=== PATIENT | female | born 1950 | race Caucasian/White ===

== ENCOUNTER 2019-07-17 06:00 | Outpatient (RCR) | payer OTHER, SELFPAY | END 2019-08-16 00:01 | LOC: AST 06:00 | PROVIDERS: Family Provider Family Medicine; Visit Provider Nurse Practitioner | DX: I69.328 Other speech and language deficits following cerebral infarction (principal) | CPT/HCPCS: 92507 ==

== ENCOUNTER 2019-08-17 06:00 | Outpatient (RCR) | payer MEDICARE, OTHER, SELFPAY | END 2019-09-16 23:59 | disposition home or self-care (01) | LOC: AST 06:00 | PROVIDERS: Family Provider Family Medicine; PCP Family Medicine; Visit Provider Nurse Practitioner | DX: R47.1 Dysarthria and anarthria (principal) ==

== ENCOUNTER → 2019-08-22 08:17 | Outpatient (BNVA) | payer MEDICARE, OTHER, SELFPAY | PROVIDERS: Family Provider Family Medicine; PCP Family Medicine; Visit Provider Specialist | DX: I99.8 Other disorder of circulatory system (principal); E11.9 Type 2 diabetes mellitus without complications; I10 Essential (primary) hypertension; E66.01 Morbid (severe) obesity due to excess calories; I48.20 Chronic atrial fibrillation, unspecified; Z68.41 Body mass index [BMI] 40.0-44.9, adult; Z79.01 Long term (current) use of anticoagulants; Z86.73 Personal history of transient ischemic attack (TIA), and cerebral infarction without residual deficits | CPT/HCPCS: 99214 ==

== ENCOUNTER 2019-08-23 16:05 | Emergency (ER) | payer MEDICARE, OTHER, SELFPAY ==
[2019-08-23 16:29] VITALS: BP 176/116; PULSE 88; RESP 16; TEMP 36.6; O2SAT 94; BMI 41.8
[2019-08-23 17:20] LABS: Hematocrit 54.4 % (37.0-47.0); Mean Corpuscular HGB Conc 31.3 g/dL (30.0-36.0); Mean Corpuscular Hemoglobin 28.2 pg (28.0-34.0); Mean Corpuscular Volume 90.4 fL (81-99); Mean Platelet Volume 11.2 fL (7.4-10.4); Platelet Count 165 10^3/cmm (130-400); Red Blood Count 6.02 10^6/uL (4.1-5.3); Red Cell Distribution Width 14.9 % (12.1-15.1); White Blood Count 6.8 10^3/uL (4.0-10.0)
[2019-08-23 17:33] LABS: Alanine Aminotransferase 25 U/L (0-33); Albumin Level 4.2 g/dL (3.5-5.2); Alkaline Phosphatase 62 IU/L (35-105); Anion Gap 16.4 (5-19); Aspartate Amino Transferase 23 U/L (0-32); Blood Urea Nitrogen 24 mg/dL (8-23); Calcium 9.6 mg/Dl (8.8-10.2); Carbon Dioxide 23 mmol/L (22-29); Chloride 106 mmol/L (98-107); Globulin 3.2 g/dL (1.3-4.6); Glomerular Filtration Rate 55.3 mL/min (90-130); Glucose 114 mg/dL (74-106); Potassium 4.4 mmol/L (3.5-5.1); Sodium 141 mmol/L (136-145); Total Bilirubin 0.5 mg/dL (0.15-1.2); Total Protein 7.4 g/dL (6.6-8.7)
[2019-08-23 18:46] LABS: Absolute Eosinophils 0.2 10^3/cmm (0.0-0.7); Absolute Segmented Neutrophil 4.6 10/cmm (1.6-7.1); Eosinophils 3 %; Lymphocytes 23 %; Lymphocytes Absolute 1.7 10^3/cmm (1.2-3.4); Monocytes Absolute 0.3 10^3/cmm (0.1-0.6); Segmented Neutrophils 68 %; Total Cells Counted 100 (0-100)
[2019-08-23 18:47] LABS: Platelet Estimate Normal (Normal)
[2019-08-23] MEDS: metoprolol tartrate 25 mg Tablet 12.5 MG PO (19:32)
[2019-08-23] MEDS: lisinopril 20 mg Tablet 40 MG PO (19:32)
[2019-08-23] MEDS: apixaban 5 mg Tablet PO (19:33)
--- NOTE | 2019-08-23 20:21 | ED_ITS ---
HPI - Recheck/Abnormal Lab/Rx General: Chief Complaint: Recheck/Abnormal Lab/Rx Stated Complaint: high bp Time Seen by Provider: 08/23/19 20:10 History of Present Illness: HPI narrative: BP has been high since stopping the Diltiazem 240 ER has been diltiazem 120 ER complaint: other (HTN) Symptoms since prior visit: no new symptoms Review of Systems General: Reports: 10 or more systems reviewed and unremarkable except in HPI and below (B/p has been up, reading documented, higher since off diltiazem) Const: Denies: fever, chills or body aches Eyes: Denies: change in vision or blurry vision ENMT: Denies: throat pain or nasal congestion Card: Denies: chest pain, shortness of breath on exertion or shortness of breath when lying down Resp: Denies: shortness of breath, productive cough or non-productive cough GI: Denies: abdominal pain, nausea or vomiting Musc: Denies: extremity pain Skin/Breast: Denies: rash Neuro: Denies: headache Psych: Denies: anxiety or depression Blake/Lymph: Denies: easy bruising PFSH ED PFSH: Statuses (acute, chronic, etc) shown below reflect problem list status as previously entered and may not be historically accurate Medical History (Updated 08/23/19 @ 20:24 by RINA Mcneal) Chronic ischemia posterior cerebral artery stroke (Acute) This patient has a 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 She has chronic atrial fibrillation, morbid obesity, poorly controlled diabetes with poor compliance on diet, hypertension that is under poor control and recurrent episodes that have brought her to the emergency department with transient neurologic symptoms and no residual. She has chronic findings of right homonymous hemianopsia from her previous left posterior cerebral artery stroke. Her is heavily invested in her care and motivated to help her with compliance on diet and exercise. She was recently started on Zetia. Her blood pressure and lipids will be managed by Dr. Wilson. I have nothing further to add. Her is very concerned that she is not keeping up with her fluids and I advise she should drink water at an appropriate amount. Getting her off of hydrochlorothiazide will probably help. I have nothing further to add. Social History (Updated 08/22/19 @ 08:40 by Afshan Mendez LPN) Smoking and tobacco status: never smoked Physical Exam Const: COMMON NORMALS: no apparent distress, average body habitus and oriented x3 HENMT: COMMON NORMALS: normocephalic HEAD & SCALP: normal to inspection and normocephalic FACE & SINUS: normal facial exam Eye: COMMON NORMALS: conjunctivae normal GENERAL EYE: normal appearance of both eyes CONJUNCTIVA: Yes conjunctivae normal Neck/C-Spine: COMMON NORMALS: no JVD Chest: COMMONS NORMALS: inspection of chest normal Resp: COMMON NORMALS: normal respiratory effort and clear to auscultation bilaterally AUSCULTATION: clear to auscultation bilaterally Cardio: COMMON NORMALS: no JVD, regular rate and regular rhythm RATE: regular rate RHYTHM: regular rhythm GI: COMMON NORMALS: normal to inspection, nondistended, normoactive bowel sounds Extremity: COMMON NORMALS: normal to inspection and full ROM Neuro: COMMON NORMALS: oriented x3 Course Vital Signs: Vital signs: Vital Signs Temperature 98 F 08/23/19 16:29 Pulse Rate 82 08/23/19 20:23 Respiratory Rate 16 08/23/19 20:23 Blood Pressure 189/116 08/23/19 21:25 Pulse Oximetry 94 08/23/19 20:23 MDM - Recheck/Abnormal Lab/Rx Lab Data: Labs: Lab Results 08/23/19 08/23/19 Range/Units 17:05 17:05 WBC 6.8 (4.0-10.0) 10^3/ uL RBC 6.02 H (4.1-5.3) 10^6/u L Hgb 17.0 H (11.5-15.3) g/dL Hct 54.4 H (37.0-47.0) % MCV 90.4 (81-99) fL MCH 28.2 (28.0-34.0) pg MCHC 31.3 (30.0-36.0) g/dL RDW 14.9 (12.1-15.1) % Plt Count 165 (130-400) 10^3/c mm MPV 11.2 H (7.4-10.4) fL Total Counted 100 (0-100) Atypical Lymphs % 2.0 (0-5) % Segmented Neutroph ils 68 % Absolute Lymphocyt es 1.7 (1.2-3.4) 10^3/c mm Lymphocytes (Manua l) 23 % Monocytes (Manual) 4.0 % Absolute Monocytes 0.3 (0.1-0.6) 10^3/c mm Eosinophils (Manua l) 3 % Absolute Eosinophi ls 0.2 (0.0-0.7) 10^3/c mm Platelet Estimate Normal (Normal) Sodium 141 (136-145) mmol/L Potassium 4.4 (3.5-5.1) mmol/L Chloride 106 (98-107) mmol/L Carbon Dioxide 23 (22-29) mmol/L Anion Gap 16.4 (5-19) BUN 24 H (8-23) mg/dL Creatinine 1.0 H (0.5-0.9) mg/dL GFR Calculation 55.3 L (90-130) mL/min Glucose 114 H (74-106) mg/dL Calcium 9.6 (8.8-10.2) mg/Dl Total Bilirubin 0.5 (0.15-1.2) mg/dL AST 23 (0-32) U/L ALT 25 (0-33) U/L Alkaline Phosphata se 62 (35-105) IU/L Total Protein 7.4 (6.6-8.7) g/dL Albumin 4.2 (3.5-5.2) g/dL Globulin 3.2 (1.3-4.6) g/dL Discharge Plan Discharge Patient Disposition: Home, Self-Care Clinical Impression: Chronic hypertension Condition: Stable Prescriptions: New clonidine HCl 0.1 mg tablet 0.1 mg PO Q6H 2 Days Qty: 20 RF: 0 No Action lisinopril 10 mg tablet 10 mg PO BID RF: 0 Eliquis 5 mg tablet 5 mg PO BID RF: 0 aspirin [Aspir-81] 81 mg tablet,delayed release (DR/EC) 81 mg PO ONCE RF: 0 Jardiance 25 mg tablet 12.5 mg PO QAM RF: 0 ezetimibe [Zetia] 10 mg tablet 10 mg PO ONCE RF: 0 fluticasone propionate 50 mcg/actuation spray,suspension 1 spray INTRANASAL Q12H RF: 0 Novolin N NPH U-100 Insulin 100 unit/mL suspension 38 unit SUBCUT BID PRNRF: 0 Lantus Solostar U-100 Insulin 100 unit/mL (3 mL) insulin pen 37 unit SUBCUT .bedtime RF: 0 loratadine [Claritin] 10 mg tablet 10 mg PO ONCE RF: 0 oxybutynin chloride 15 mg tablet extended release 24hr 15 mg PO ONCE RF: 0 tramadol 50 mg tablet 50 mg PO Q4H PRNRF: 0 diltiazem HCl 120 mg capsule,extended release 12 hr 120 mg PO ONCE RF: 0 metoprolol tartrate 25 mg tablet 12.5 mg PO BID RF: 0 sulfamethoxazole-trimethoprim [Bactrim DS] 800-160 mg tablet 1 tab PO .COMPLEX RF: 0 Discharge Orders: Discharge Order (Routine); Ordered 08/23/19 Ordered By: Keshawn Dixon Referrals: Ajay Robertson, [Primary Care Provider] - Discharge Diet: Usual diet Discharge Activity: Resume usual activity Patient Instructions: Chronic Hypertension (ED) Activity Restrictions/Additional Instructions: Increase diltiazem back to 250 mg ER twice a day. Can take 0.1 mg clonidine every 6 hours as needed for blood pressure of systolic greater than 150 or diastolic greater than 100. Continue document blood pressures. Follow-up Dr. Jensen within the next week. Can return here if symptoms are worsening. Coding Level of Care Code ED Ceramic Worker for Tulio Fwstoney Exam Problem Focused
[2019-08-23 20:23] VITALS: BP 181/129; PULSE 82; RESP 16; O2SAT 94
[2019-08-23] MEDS: sodium chloride 0.9% 1,000 ML 999 ML IV (21:24)
[2019-08-23 21:25] VITALS: BP 189/116
[2019-08-23] MEDS: cloNIDine 0.1 mg Tablet 0.3 MG PO (21:25)
[2019-08-23 23:23] VITALS: BP 124/85; PULSE 74; RESP 16; TEMP 36.5; O2SAT 95
== END 2019-08-23 23:24 | disposition home or self-care (01) ==
PROVIDERS: Family Medicine; Emergency Provider Nurse Practitioner Family; Family Provider Family Medicine; PCP Family Medicine
DX: I10 Essential (primary) hypertension (principal); Z79.01 Long term (current) use of anticoagulants; Z79.82 Long term (current) use of aspirin; Z79.4 Long term (current) use of insulin; Z86.73 Personal history of transient ischemic attack (TIA), and cerebral infarction without residual deficits
CPT/HCPCS: 36415; 80053; 85007; 85027; 96360; 99281; J7030

== ENCOUNTER 2019-09-27 14:43 | Outpatient (CLI) | payer OTHER, MEDICARE, SELFPAY ==
--- NOTE | 2019-09-27 14:54 | MR_ITS ---
WS: [id number] MRI LEFT SHOULDER NONCONTRAST TECHNIQUE: Sagittal T2, coronal T1, T2 and proton density imaging. Axial gradient PDE imaging. CLINICAL INFORMATION: LEFT SHOULDER PAIN COMPARISON: None. FINDINGS: Moderate degenerative arthritis at the AC joint. Mild downsloping of the acromion. Trace subacromial fluid. Tendinopathy in the distal supraspinatus. Tiny undersurface insertional tear distal supraspina tus. Normal infraspinatus. Normal teres minor. Normal subscapularis tendon distally. Normal biceps te ndon in the bicipital groove. Chronic appearing atrophy of the biceps tendon. Tendinopathy involving the intra-articular portion of the biceps tendon with a small amount of T2 signal abnormality. Edema along the rotator interval. Ma rked irregularity of the glenoid labrum with chronic appearing labral tear. Chronic appearing anterio r superior labral tear likely involves the biceps labral anchor. SLAP tear with anterior and posterio r extension. Susceptibility artifact involving the labrum may be due to mineralization. Posterior lab rum is better preserved. Subchondral cystic change involving the glenoid. MR/MR shoulder LT wo con* [id number] IMPRESSION: 1. Moderate degenerative arthritis at the AC joint with mild downsloping of th e acromion.. Moderate edema at the AC joint. 2. Tendinopathy involving the supraspinatus with a small undersurface insertio nal tear. 3. Rotator cuff is otherwise intact. 4. Marked degenerative fraying involving the glenoid labrum with chronic appea ring labral tearing. Chronic appearing SLAP tear with anterior and posterior ex tension. This likely involves the biceps labral anchor. Posterior labrum appear s better preserved. 5. Subchondral cystic change involving the glenoid. 6. Atrophic biceps tendon is normally located in the bicipital groove. Tendino costa involving the intra-articular biceps tendon with T2 signal abnormality.
== END 2019-09-27 14:44 | disposition home or self-care (01) ==
LOC: RADSHAW 14:52
PROVIDERS: Family Provider Family Medicine; PCP Family Medicine; Visit Provider Family Medicine
DX: M19.012 Primary osteoarthritis, left shoulder (principal); S43.432A Superior glenoid labrum lesion of left shoulder, initial encounter; X58.XXXA Exposure to other specified factors, initial encounter
CPT/HCPCS: 73221

== ENCOUNTER 2019-10-12 06:00 | Outpatient (RCR) | payer OTHER, SELFPAY | END 2019-10-15 23:59 | disposition home or self-care (01) | LOC: AST 06:00 | PROVIDERS: Family Provider Family Medicine; PCP Family Medicine; Referring Provider Family Medicine; Visit Provider Family Medicine | DX: I63.9 Cerebral infarction, unspecified (principal); R13.0 Aphagia | CPT/HCPCS: 92523 ==

== ENCOUNTER 2019-10-16 06:00 | Outpatient (RCR) | payer OTHER, SELFPAY | END 2019-11-15 23:59 | disposition home or self-care (01) | LOC: AST 06:00 | PROVIDERS: Family Provider Family Medicine; PCP Family Medicine; Referring Provider Family Medicine; Visit Provider Family Medicine | DX: I69.322 Dysarthria following cerebral infarction (principal) | CPT/HCPCS: 92507 ==

== ENCOUNTER 2019-11-16 06:00 | Outpatient (RCR) | payer OTHER, SELFPAY | END 2019-12-15 23:59 | disposition home or self-care (01) | LOC: AST 06:00 | PROVIDERS: Family Provider Family Medicine; PCP Family Medicine; Referring Provider Family Medicine; Visit Provider Family Medicine | DX: I63.9 Cerebral infarction, unspecified (principal); R13.0 Aphagia | CPT/HCPCS: 92507 ==

== ENCOUNTER 2019-11-29 06:00 | Outpatient (RCR) | payer OTHER, SELFPAY | END 2019-12-15 23:59 | disposition home or self-care (01) | LOC: APT 06:00 | PROVIDERS: Family Provider Family Medicine; PCP Family Medicine; Referring Provider Orthopaedic Surgery; Visit Provider Orthopaedic Surgery | DX: I69.920 Aphasia following unspecified cerebrovascular disease (principal) | CPT/HCPCS: 97110; 97112; 97161 ==

== ENCOUNTER 2019-12-16 06:00 | Outpatient (RCR) | payer OTHER, SELFPAY | END 2020-01-15 23:59 | disposition home or self-care (01) | LOC: AST 06:00 | PROVIDERS: PCP Family Medicine; Referring Provider Family Medicine; Visit Provider Family Medicine | DX: R47.01 Aphasia (principal) | CPT/HCPCS: 92507 ==

== ENCOUNTER 2019-12-16 06:00 | Outpatient (RCR) | payer OTHER, SELFPAY | END 2020-01-15 23:59 | disposition home or self-care (01) | LOC: APT 06:00 | PROVIDERS: PCP Family Medicine; Referring Provider Orthopaedic Surgery; Visit Provider Orthopaedic Surgery | DX: S46.912D Strain of unspecified muscle, fascia and tendon at shoulder and upper arm level, left arm, subsequent encounter (principal); X58.XXXD Exposure to other specified factors, subsequent encounter; M19.012 Primary osteoarthritis, left shoulder | CPT/HCPCS: 97110; 97140; 97164 ==

== ENCOUNTER 2020-01-16 06:00 | Outpatient (RCR) | payer MEDICARE, OTHER, SELFPAY | END 2020-02-14 23:59 | disposition home or self-care (01) | LOC: APT 06:00 | PROVIDERS: PCP Family Medicine; Visit Provider Orthopaedic Surgery | DX: S46.912D Strain of unspecified muscle, fascia and tendon at shoulder and upper arm level, left arm, subsequent encounter (principal); X58.XXXD Exposure to other specified factors, subsequent encounter | CPT/HCPCS: 92507; 97110; 97140 ==

== ENCOUNTER 2020-04-17 06:00 | Outpatient (RCR) | payer MEDICARE, SELFPAY | END 2020-05-16 23:59 | disposition home or self-care (01) | LOC: AST 06:00 | PROVIDERS: PCP Family Medicine; Referring Provider Orthopaedic Surgery; Visit Provider Orthopaedic Surgery | DX: I69.320 Aphasia following cerebral infarction (principal) | CPT/HCPCS: 96105 ==

== ENCOUNTER 2020-05-03 11:58 | Outpatient (CLI) | payer OTHER, MEDICARE, SELFPAY ==
--- NOTE | 2020-05-03 12:10 | MM_ITS ---
WS: [id number] BILATERAL SCREENING DIGITAL MAMMOGRAM WITH CAD HISTORY: SCREENING COMPARISON: 04/04/2019 and 11/09/2017 Bilateral CC and MLO views submitted. Computer aided detection analyzed. Breast composition: There are scattered areas of fibroglandular density. No suspicious masses, microc alcifications or architectural distortion. Stable bilobed mass measuring 2.0 cm transversely in the c entral LEFT breast at 3:00. There are additional associated calcifications. No increase in size. Ther e are additional smaller bilateral breast nodules which are stable. No increasing size of any mass. B enign calcifications. MM/[place] [id number] IMPRESSION: BI-RADS: 2-Benign FOLLOW UP: 1 Year Follow-up
== END 2020-05-03 11:59 | disposition home or self-care (01) ==
LOC: RADSHAW 12:05
PROVIDERS: PCP Family Medicine; Visit Provider Nurse Practitioner
DX: Z12.31 Encounter for screening mammogram for malignant neoplasm of breast (principal)
CPT/HCPCS: 77067

== ENCOUNTER 2021-06-26 13:16 | Outpatient (CLI) | payer OTHER, SELFPAY ==
--- NOTE | 2021-06-26 13:20 | MM_ITS ---
WS: [id number] BILATERAL SCREENING DIGITAL MAMMOGRAM WITH CAD HISTORY: SCREENING COMPARISON: 05/03/2020, 04/04/2019 Bilateral CC and MLO views submitted. Computer aided detection analyzed. Breast composition: There are scattered areas of fibroglandular density. No suspicious masses, microc alcifications or architectural distortion. Lobulated 7 mm nodule in the anterior RIGHT breast. May be superimposed fibroglandular densities but needs to be further evaluated. There are additional nodules which are stable. MM/[place] [id number] IMPRESSION: BI-RADS: 0-Incomplete: Need additional imaging evaluation FOLLOW UP: Need Additional Imaging RIGHT breast: Spot compression views (CC and MLO). True ML. Ultrasound to follo w if abnormality persists.
== END 2021-06-26 13:17 | disposition home or self-care (01) ==
PROVIDERS: PCP Family Medicine; Visit Provider Nurse Practitioner
DX: Z12.31 Encounter for screening mammogram for malignant neoplasm of breast (principal)
CPT/HCPCS: 77067

== ENCOUNTER 2021-07-26 13:04 | Outpatient (CLI) | payer OTHER, SELFPAY ==
--- NOTE | 2021-07-26 13:13 | US_ITS ---
WS: [id number] ADDITIONAL VIEWS RIGHT BREAST RIGHT breast ultrasound, limited HISTORY: RT BREAST NODULE COMPARISON: 06/26/2021 and 05/03/2020 Compression views right CC and MLO projection. True ML also submitted. There is a partially obscured nodule measuring 6 mm just posterior to the nipple. This is best seen o n the CC projection. This may be a prominent duct. Ultrasound to follow. RIGHT breast ultrasound, limited. Well-circumscribed hypoechoic nodule at 6:00, 1 cm from the nipple. This does correspond to the mammo graphic abnormality. Hypoechoic nodule measures 6 x 5 x 5 mm. US/US breast RT limited* [id number] IMPRESSION: BI-RADS: 4-Suspicious Finding-Biopsy Should Be Considered FOLLOW-UP: Biopsy Recommended Ultrasound-guided biopsy recommended of the hypoechoic nodule RIGHT breast.
== END 2021-07-26 13:05 | disposition home or self-care (01) ==
LOC: RADSHAW 13:09
PROVIDERS: PCP Family Medicine; Visit Provider Nurse Practitioner
DX: N63.15 Unspecified lump in the right breast, overlapping quadrants (principal)
CPT/HCPCS: 76642; 77065

== ENCOUNTER 2021-09-04 12:23 | Outpatient (CLI) | payer OTHER, SELFPAY ==
--- NOTE | 2021-09-04 | US_ITS ---
WS: [id number] ULTRASOUND-GUIDED RIGHT BREAST BIOPSY HISTORY: RT BREAST NODULE COMPARISON: 07/26/2021, 06/26/2021 Procedure, risks and complications are explained to the patient. Medications are reviewed. Consent is obtained. The mass in the RIGHT breast is localized with ultrasound. Mass localizes to 6:00, 1 cm from the nipp le. Skin is cleansed with ChloraPrep and anesthetized with 1% buffered lidocaine. Small dermatome is made. Under sterile conditions mass is biopsied with a 14-gauge Achieve needle. Multiple core biopsie s are performed. Material placed in formalin and sent to pathology for review. No complications encou ntered. Breast tissue marker (Bard ultrasound enhanced ribbon): Single. Patient left the radiology suite with no complications. Patient is instructed to return to [facility] with any concerns. US/[place] [id number] IMPRESSION: 1. Uncomplicated core needle biopsy circumscribed mass RIGHT breast at 6:00, 1 cm from the nipple. PATHOLOGY: Benign breast tissue with coagulated blood and fibrotic changes. No malignancy. RECOMMENDATION: Diagnostic mammogram RIGHT breast 6 months and possible ultraso und.
== END 2021-09-04 12:24 | disposition home or self-care (01) ==
LOC: RAD 12:27
PROVIDERS: PCP Family Medicine; Visit Provider Nurse Practitioner
DX: N63.15 Unspecified lump in the right breast, overlapping quadrants (principal)
CPT/HCPCS: 19083; 88305

== ENCOUNTER → 2021-10-16 16:10 | Outpatient (BNVA) | payer OTHER, SELFPAY | PROVIDERS: PCP Family Medicine; Visit Provider Nurse Practitioner Family | DX: N39.0 Urinary tract infection, site not specified (principal) | CPT/HCPCS: 81003; 87086 ==

== ENCOUNTER → 2021-12-24 11:06 | Outpatient (BNVA) | payer OTHER, SELFPAY | PROVIDERS: PCP Family Medicine; Visit Provider Urology | DX: N39.41 Urge incontinence (principal); N39.0 Urinary tract infection, site not specified; L29.3 Anogenital pruritus, unspecified | CPT/HCPCS: 51798; 81003; 87086; 87106; 99213 ==

== ENCOUNTER 2022-01-09 14:05 | Outpatient (CLI) | payer OTHER, SELFPAY ==
--- NOTE | 2022-01-09 14:15 | US_ITS ---
WS: [id number] RENAL ULTRASOUND HISTORY: Urgency Incontinence COMPARISON: None available. TECHNIQUE: 2-D and color Doppler imaging of the kidney submitted. Right kidney: 10.3 cm x 5.3 cm x 5.6 cm. Normal echogenicity with no hydronephrosis or mass. Left kidney: 11.9 cm x 5.7 cm x 3.7 cm. Normal echogenicity with no hydronephrosis or mass. Aorta: Normal. Urinary Bladder: Normal distention. US/US renal BI* [id number] IMPRESSION: Normal renal ultrasound.
== END 2022-01-09 14:06 | disposition home or self-care (01) ==
PROVIDERS: PCP Family Medicine; Visit Provider Urology
DX: N39.41 Urge incontinence (principal)
CPT/HCPCS: 76770

== ENCOUNTER → 2022-01-22 15:57 | Outpatient (BNVA) | payer MEDICARE, OTHER, SELFPAY | PROVIDERS: PCP Family Medicine; Visit Provider Family Medicine | DX: N39.0 Urinary tract infection, site not specified (principal); R30.0 Dysuria; E11.9 Type 2 diabetes mellitus without complications; R19.4 Change in bowel habit | CPT/HCPCS: 81000; 87086; 87106 ==

== ENCOUNTER → 2022-01-23 11:26 | Outpatient (BNVA) | payer MEDICARE, OTHER, SELFPAY | PROVIDERS: PCP Family Medicine; Visit Provider Family Medicine | DX: E11.9 Type 2 diabetes mellitus without complications (principal); N39.0 Urinary tract infection, site not specified; R19.4 Change in bowel habit; R30.0 Dysuria | CPT/HCPCS: 83630; 87177; 87209; 87338; 87506 ==

== ENCOUNTER 2022-01-27 14:15 | Outpatient (CLI) | payer OTHER, SELFPAY ==
--- NOTE | 2022-01-27 14:00 | XR_ITS ---
WS: [id number] KUB, AP view, 01/27/2022. Clinical Data: Urgency Incontinence Comparison: None. Findings: No abnormal intraabdominal masses or calcifications are seen. There is no dilatated small bowel or ev idence of obstruction. There is fecal material throughout the colon. XR/XR KUB [id number] Impression: Negative KUB.
== END 2022-01-27 14:16 | disposition home or self-care (01) ==
LOC: RAD 14:18
PROVIDERS: PCP Family Medicine; Visit Provider Urology
DX: N39.41 Urge incontinence (principal); N39.0 Urinary tract infection, site not specified
CPT/HCPCS: 74018; 81003; 99213

== ENCOUNTER → 2022-02-10 11:35 | Outpatient (BNVA) | payer MEDICARE, SELFPAY | PROVIDERS: PCP Family Medicine; Visit Provider Family Medicine | DX: B37.49 Other urogenital candidiasis (principal) | CPT/HCPCS: 81000; 87086; 87106 ==

== ENCOUNTER → 2022-02-13 15:35 | Outpatient (BNVA) | payer OTHER, SELFPAY | PROVIDERS: PCP Family Medicine; Visit Provider Internal Medicine | DX: I25.10 Atherosclerotic heart disease of native coronary artery without angina pectoris (principal); I48.91 Unspecified atrial fibrillation; E11.9 Type 2 diabetes mellitus without complications; E66.9 Obesity, unspecified; Z68.42 Body mass index [BMI] 45.0-49.9, adult; G47.33 Obstructive sleep apnea (adult) (pediatric); Z79.01 Long term (current) use of anticoagulants; Z79.4 Long term (current) use of insulin | CPT/HCPCS: 99213 ==

== ENCOUNTER → 2022-03-11 11:16 | Outpatient (BNVA) | payer OTHER, SELFPAY | PROVIDERS: PCP Family Medicine; Visit Provider Podiatrist Foot & Ankle Surgery | DX: I73.9 Peripheral vascular disease, unspecified (principal); L60.3 Nail dystrophy; E11.42 Type 2 diabetes mellitus with diabetic polyneuropathy | CPT/HCPCS: 11056; 11721 ==

== ENCOUNTER → 2022-04-29 13:02 | Outpatient (BNVA) | payer OTHER, SELFPAY | PROVIDERS: PCP Family Medicine; Visit Provider Urology | DX: N39.0 Urinary tract infection, site not specified (principal); B37.49 Other urogenital candidiasis | CPT/HCPCS: 87086; 99213 ==

== ENCOUNTER → 2022-05-12 10:52 | Outpatient (BNVA) | payer OTHER, SELFPAY | PROVIDERS: PCP Family Medicine; Visit Provider Urology | DX: N39.0 Urinary tract infection, site not specified (principal); B37.49 Other urogenital candidiasis | CPT/HCPCS: 81003 ==

== ENCOUNTER → 2022-07-25 10:25 | Outpatient (BNVA) | payer MEDICARE, SELFPAY | PROVIDERS: PCP Family Medicine; Visit Provider Family Medicine | DX: R31.9 Hematuria, unspecified (principal); E11.9 Type 2 diabetes mellitus without complications; G47.33 Obstructive sleep apnea (adult) (pediatric); I48.91 Unspecified atrial fibrillation; I69.30 Unspecified sequelae of cerebral infarction; I73.9 Peripheral vascular disease, unspecified; N39.0 Urinary tract infection, site not specified; E55.9 Vitamin D deficiency, unspecified | CPT/HCPCS: 80053; 80061; 81003; 82306; 82607; 83036; 83721; 85025; 87086 ==

== ENCOUNTER → 2022-08-05 10:39 | Outpatient (BNVA) | payer MEDICARE, SELFPAY | PROVIDERS: PCP Family Medicine; Visit Provider Podiatrist Foot & Ankle Surgery | DX: I73.9 Peripheral vascular disease, unspecified (principal); E11.8 Type 2 diabetes mellitus with unspecified complications; L60.3 Nail dystrophy; E11.42 Type 2 diabetes mellitus with diabetic polyneuropathy; Z79.84 Long term (current) use of oral hypoglycemic drugs | CPT/HCPCS: 11056; 11721 ==

== ENCOUNTER → 2022-10-28 15:00 | Outpatient (BNVA) | payer MEDICARE, SELFPAY | PROVIDERS: PCP Family Medicine; Referring Provider Family Medicine; Visit Provider Obstetrics & Gynecology | DX: Z01.419 Encounter for gynecological examination (general) (routine) without abnormal findings (principal); N95.0 Postmenopausal bleeding; N93.9 Abnormal uterine and vaginal bleeding, unspecified; I69.30 Unspecified sequelae of cerebral infarction; I48.91 Unspecified atrial fibrillation; E66.9 Obesity, unspecified; G47.33 Obstructive sleep apnea (adult) (pediatric); E11.9 Type 2 diabetes mellitus without complications; I73.9 Peripheral vascular disease, unspecified; N39.41 Urge incontinence; Z79.01 Long term (current) use of anticoagulants | CPT/HCPCS: 87624 ==

== ENCOUNTER 2022-11-11 12:04 | Outpatient (CLI) | payer MEDICARE, SELFPAY ==
--- NOTE | 2022-11-11 12:15 | US_ITS ---
WS: [id number] TRANSABDOMINAL PELVIC AND TRANSVAGINAL PELVIC ULTRASOUND HISTORY: vaginal bleeding COMPARISON: None available. Quality of this examination is suboptimal secondary to pain during the examination and body habitus. Uterus: 7.7 cm x 3.8 cm x 3.1 cm. Normal size anteverted uterus. No fibroid or mass identified but ve ry limited visualization of the entire uterus. Endometrium: 0.4 cm. Poorly visualized. Neither ovary is identified. No adnexal mass. Free fluid: No free fluid. US/US pelv w/transvag [id number] IMPRESSION: 1. Suboptimal evaluation of the uterus and adnexa due to body habitus and pain during the examination. 2. Poorly visualized endometrium. This study is not adequate to exclude endome trial neoplasm or abnormality.
== END 2022-11-11 12:05 | disposition home or self-care (01) ==
PROVIDERS: PCP Family Medicine; Visit Provider Family Medicine
DX: N93.9 Abnormal uterine and vaginal bleeding, unspecified (principal)
CPT/HCPCS: 76830; 76856

== ENCOUNTER → 2022-11-21 10:44 | Outpatient (BNVA) | payer MEDICARE, OTHER, SELFPAY | PROVIDERS: PCP Family Medicine; Visit Provider Family Medicine | DX: E11.9 Type 2 diabetes mellitus without complications (principal); I48.91 Unspecified atrial fibrillation; I73.9 Peripheral vascular disease, unspecified; N95.0 Postmenopausal bleeding; I69.30 Unspecified sequelae of cerebral infarction; Z01.818 Encounter for other preprocedural examination | CPT/HCPCS: 80053; 80061; 82607; 83036; 83721; 85025 ==

== ENCOUNTER → 2022-11-25 10:39 | Outpatient (BNVA) | payer MEDICARE, SELFPAY | PROVIDERS: PCP Family Medicine; Visit Provider Podiatrist Foot & Ankle Surgery | DX: I73.9 Peripheral vascular disease, unspecified (principal); E11.8 Type 2 diabetes mellitus with unspecified complications; L60.3 Nail dystrophy; E11.42 Type 2 diabetes mellitus with diabetic polyneuropathy; Z79.4 Long term (current) use of insulin | CPT/HCPCS: 11056; 11721 ==

== ENCOUNTER 2022-12-04 12:24 | Day surgery (SDC) | payer MEDICARE, SELFPAY ==
[2022-12-03 12:14] VITALS: BMI 47.0
[2022-12-04] VITALS (11 sets, daily range): BP systolic 129–162; BP diastolic 64–88; PULSE 70–87; RESP 13–20; TEMP 36.1–36.6; O2SAT 91–98
--- NOTE | 2022-12-04 08:23 | PM.HP ---
Providers/Chief Complaint Admitting Physician: Vadim Liz M.D. Primary Care Provider: Ajay Robertson DO Chief Complaint: abnormal uterine bleeding History of Present Illness Kay Munroe is a 72 year old female with three-month history of heavy postmenopausal bleeding Medications/Allergies Home Medications Medication Instructions Recorded Confirmed Last Taken Type apixaban 5 mg tablet (Eliquis) 5 mg PO BID 08/22/19 12/03/22 11/29/22 History aspirin 81 mg tablet,delayed 81 mg PO ONCE 08/22/19 12/03/22 11/29/22 History release (Aspir-) ezetimibe 10 mg tablet (Zetia) 10 mg PO ONCE 08/22/19 12/03/22 12/03/22 History fluticasone propionate 50 1 spray intranasal Q12H 08/22/19 12/03/22 12/03/22 History mcg/actuation nasal spray,suspension insulin NPH isoph U-100 human 100 38 unit SUBCUT BID PRN 08/22/19 12/03/22 12/03/22 History unit/mL subcutaneous suspension Hyperglycemia (Novolin N NPH U-100 Insulin isophane) loratadine 10 mg tablet (Claritin) 10 mg PO ONCE 08/22/19 12/03/22 12/03/22 History metoprolol tartrate 25 mg tablet 12.5 mg PO BID 08/22/19 12/03/22 12/03/22 History oxybutynin chloride 15 mg 15 mg PO ONCE 08/22/19 12/03/22 12/03/22 History tablet,extended release 24 hr tramadol 50 mg tablet 50 mg PO Q4H PRN Pain 08/22/19 12/03/22 Unknown History cyclobenzaprine 5 mg tablet 5 mg PO BID 03/01/20 12/03/22 12/03/22 History diltiazem HCl 120 mg 240 mg PO BID 03/01/20 12/03/22 12/03/22 History capsule,extended release 12 hr empagliflozin 25 mg tablet 25 mg PO QAM 03/01/20 12/03/22 12/03/22 History (Jardiance) lisinopril 10 mg tablet 40 mg PO DAILY 01/22/21 12/03/22 12/03/22 History ketoconazole 2 % shampoo 1 applic topical .2 x weekly #120 08/19/21 12/03/22 12/03/22 Rx mL ketoconazole 2 % topical cream 1 applic topical BID #30 grams 08/19/21 12/03/22 12/03/22 Rx cholecalciferol (vitamin D3) 125 125 mcg PO DAILY 10/16/21 12/03/22 12/03/22 History mcg (5,000 unit) capsule cdrejtox-jhuydrj-gcre-lutein tablet 1 tab PO DAILY 10/16/21 12/03/22 12/03/22 History insulin glargine 100 unit/mL (3 72 unit SUBCUT DAILY 12/24/21 12/03/22 12/03/22 History mL) subcutaneous pen (Lantus Solostar U-100 Insulin) cpap #1 ea 03/20/22 11/25/22 Unknown Rx fluconazole 100 mg tablet 100 mg PO DAILY #7 tabs 04/22/22 12/03/22 12/03/22 Rx methenamine hippurate 1 gram tablet 1 g PO BID #60 tabs 05/19/22 12/03/22 12/03/22 Rx bupropion HCl 75 mg tablet 75 mg PO BID #60 tabs 07/18/22 12/03/22 12/03/22 Rx triamcinolone acetonide 0.1 % 1 applic topical BID #453.6 grams 09/03/22 12/03/22 12/03/22 Rx topical ointment metoclopramide HCl 5 mg tablet See Rx Instructions .Route 10/06/22 12/03/22 12/03/22 Rx .COMPLEX #90 tabs Allergies Allergy/AdvReac Type Severity Reaction Status Date / Time Penicillins AdvReac nausea/vomi Verified 12/03/22 12:00 ting Vextmmc-VLD-LnR Reductase AdvReac muscle pain Verified 12/03/22 12:00 Inhibitor [Pvoxmaa-Ezk-Eez Reductase Inhibitor] PFSH Acute PFSH: Medical History Anticoagulation adequate with anticoagulant therapy Atrial fibrillation Chronic ischemia posterior cerebral artery stroke This patient has a 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 She has chronic atrial fibrillation, morbid obesity, poorly controlled diabetes with poor compliance on diet, hypertension that is under poor control and recurrent episodes that have brought her to the emergency department with transient neurologic symptoms and no residual. She has chronic findings of right homonymous hemianopsia from her previous left posterior cerebral artery stroke. Her is heavily invested in her care and motivated to help her with compliance on diet and exercise. She was recently started on Zetia. Her blood pressure and lipids will be managed by Dr. Wilson. I have nothing further to add. Her is very concerned that she is not keeping up with her fluids and I advise she should drink water at an appropriate amount. Getting her off of hydrochlorothiazide will probably help. I have nothing further to add. CVA (cerebral vascular accident) Diabetes Hematuria Obesity Obstructive sleep apnea Recurrent UTI Urgency incontinence Urinary tract infection Surgical History Hx of appendectomy Hx of tonsillectomy Family History Father , IN HIS LATE 50'S No problems noted. Mother , AT AGE 65 Hypertension Grandmother Breast cancer maternal Sister Diabetes Hypertension Denies family history of Colon cancer Ovarian cancer Heart disease Hypercholesteremia Uterine cancer Thyroid disease Stroke Vitals/I&O/Wt Weight last 48 hrs Weight 300 lb Physical Exam Narrative: HEENT: normal Lungs: clear Cor: RRR Abd: soft, nontender A&P Assessment and plan (1) Postmenopausal bleeding: plan hysteroscopy, endometrial sampling, possible endometrial polypectomy Attestations Medical Necessity Statement*: patient with postmenopausal bleeding now for hysteroscopy, endometrial sampling Coding Level of Care Code Acute Code for Chg Fwd Diagnoses Postmenopausal bleeding N95.0 Time Spent (min) 45
--- NOTE | 2022-12-04 08:26 | P.HPUD_ITS ---
Surgery/Procedure H&P Update DATE OF PROCEDURE: December 04, 2022 DATE H&P PERFORMED: 12/04/22 CHANGES TO PREVIOUS DOCUMENTATION: none PRIMARY INDICATION FOR PROCEDURE: postmenopausal bleeding PLANNED PROCEDURE: Operation Date: 12/04/22 14:00 Proposed Procedures p Hysteroscopy w/Myosure, endometrial sampling 05339, Endometrial polypectomy 21120,N93.9(Not Applicable) - Vadim Liz MD s Endometrial polypectomy 15194(Not Applicable) - Vadim Liz MD
--- NOTE | 2022-12-04 08:26 | W.PM.OPSUD ---
Surgery/Procedure H&P Update DATE OF PROCEDURE: December 04, 2022 DATE H&P PERFORMED: 12/04/22 CHANGES TO PREVIOUS DOCUMENTATION: none PRIMARY INDICATION FOR PROCEDURE: postmenopausal bleeding PLANNED PROCEDURE: Operation Date: 12/04/22 14:00 Proposed Procedures p Hysteroscopy w/Myosure, endometrial sampling 63594, Endometrial polypectomy 42721,N93.9(Not Applicable) - Vadim Liz MD s Endometrial polypectomy 34285(Not Applicable) - Vadim Liz MD
[2022-12-04] MEDS: sodium chloride 0.9% 1,000 ML 30 ML IV (13:03)
--- NOTE | 2022-12-04 13:18 | ECG_ITS ---
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 Measurements Intervals [place] Rate: 82 P: 0 PA: 0 QRS: 35 QRSD: 105 T: 71 QT: 409 QTc: 480 Interpretive Statements ATRIAL FIBRILLATION LOW QRS VOLTAGE IN PRECORDIAL LEADS [QRS DEFLECTION < 1.0 mV IN CHEST LEADS] ANTEROSEPTAL MYOCARDIAL INFARCTION [40+ ms Q WAVE IN V1-V4], PROBABLY OLD Compared to ECG 08/01/2019 22:20:19 Low QRS voltage now present Myocardial infarct finding still present Electronically Signed On 12-05-2022 22:17:44 CDT by Jose Sierra M.D. [email or web address] [email or web address] memorial [id number]
--- NOTE | 2022-12-04 13:23 | ANES.PREANE2 ---
Pre-Anesthetic Assessment Height/Weight: Height 1.7 m Weight 136.078 kg Temp Pulse Resp BP Pulse Ox O2 Del Method 97.2 F L 76 18 153/87 92 Room Air 12/04/22 12:49 12/04/22 12:49 12/04/22 12:49 12/04/22 12:49 12/04/22 12:49 12/04/22 12:50 Preop Diagnosis: abnormal uterine bleeding Operation Date: 12/04/22 14:00 Proposed Procedures p Hysteroscopy w/Myosure, endometrial sampling 76600, Endometrial polypectomy 98028,N93.9(Not Applicable) - Vadim Liz MD s Endometrial polypectomy 98684(Not Applicable) - Vadim Liz MD Familial anesthetic complications: none Was Beta Geronimo taken within 24 hours: Yes Was Clonidine taken within 24 hours: N/A Last intake: Intake Last Liquid Date 12/03/22 Last Liquid Time 20:00 Last Solid Date 12/03/22 Last Solid Time 20:00 Social No alcohol and No tobacco Exam alert, oriented x 3 and clear to auscultation bilaterally Airway Submandibular: within normal limits Cervical ROM: within normal limits Mallampati: Class II Dentition: full Pulmonary Sleep Apnea CV/HEM Atrial Fibrillation, Hypertension and Peripheral Vascular Disease Chronic Renal Insufficiency Metabolic Diabetes Mellitus, Hyperlipidemia and Morbid Obesity Neuropsych Cerebrovascular Accident Anesthetic Plan ASA status: 3 Anesthesia: General Medications/Allergies Home Medications Medication Instructions Recorded Confirmed Last Taken Type apixaban 5 mg tablet (Eliquis) 5 mg PO BID 08/22/19 12/03/22 11/29/22 History aspirin 81 mg tablet,delayed 81 mg PO ONCE 08/22/19 12/03/22 11/29/22 History release (Aspir-) ezetimibe 10 mg tablet (Zetia) 10 mg PO ONCE 08/22/19 12/03/22 12/03/22 History fluticasone propionate 50 1 spray intranasal Q12H 08/22/19 12/03/22 12/03/22 History mcg/actuation nasal spray,suspension insulin NPH isoph U-100 human 100 38 unit SUBCUT BID PRN 08/22/19 12/03/22 12/03/22 History unit/mL subcutaneous suspension Hyperglycemia (Novolin N NPH U-100 Insulin isophane) loratadine 10 mg tablet (Claritin) 10 mg PO ONCE 08/22/19 12/03/22 12/03/22 History metoprolol tartrate 25 mg tablet 12.5 mg PO BID 08/22/19 12/03/22 12/04/22 History oxybutynin chloride 15 mg 15 mg PO ONCE 08/22/19 12/03/22 12/03/22 History tablet,extended release 24 hr tramadol 50 mg tablet 50 mg PO Q4H PRN Pain 08/22/19 12/03/22 Unknown History cyclobenzaprine 5 mg tablet 5 mg PO BID 03/01/20 12/03/22 12/03/22 History diltiazem HCl 120 mg 240 mg PO BID 03/01/20 12/03/22 12/03/22 History capsule,extended release 12 hr empagliflozin 25 mg tablet 25 mg PO QAM 03/01/20 12/03/22 12/03/22 History (Jardiance) lisinopril 10 mg tablet 40 mg PO DAILY 01/22/21 12/03/22 12/03/22 History ketoconazole 2 % shampoo 1 applic topical .2 x weekly #120 08/19/21 12/03/22 12/03/22 Rx mL ketoconazole 2 % topical cream 1 applic topical BID #30 grams 08/19/21 12/03/22 12/03/22 Rx cholecalciferol (vitamin D3) 125 125 mcg PO DAILY 10/16/21 12/03/22 12/03/22 History mcg (5,000 unit) capsule bepehkez-tywkmhc-iqeq-lutein tablet 1 tab PO DAILY 10/16/21 12/03/22 12/03/22 History insulin glargine 100 unit/mL (3 72 unit SUBCUT DAILY 12/24/21 12/03/22 12/03/22 History mL) subcutaneous pen (Lantus Solostar U-100 Insulin) cpap #1 ea 03/20/22 11/25/22 Unknown Rx fluconazole 100 mg tablet 100 mg PO DAILY #7 tabs 04/22/22 12/03/22 12/03/22 Rx methenamine hippurate 1 gram tablet 1 g PO BID #60 tabs 05/19/22 12/03/22 12/03/22 Rx bupropion HCl 75 mg tablet 75 mg PO BID #60 tabs 07/18/22 12/03/22 12/03/22 Rx triamcinolone acetonide 0.1 % 1 applic topical BID #453.6 grams 09/03/22 12/03/22 12/03/22 Rx topical ointment metoclopramide HCl 5 mg tablet See Rx Instructions .Route 10/06/22 12/03/22 12/03/22 Rx .COMPLEX #90 tabs Allergies Allergy/AdvReac Type Severity Reaction Status Date / Time Penicillins AdvReac nausea/vomi Verified 12/03/22 12:00 ting Hebyprc-XLZ-JhX Reductase AdvReac muscle pain Verified 12/03/22 12:00 Inhibitor [Iaucvru-Ypm-See Reductase Inhibitor] Current Medications Generic Name Dose Route Start Last Admin Trade Name Freq PRN Reason Stop Dose Admin Sodium Chloride 1,000 mls @ 30 mls/hr 12/04/22 12:45 12/04/22 13:03 Sodium Chloride 0.9% IV 12/05/22 12:44 30 mls/hr .Q24H JULITA Administration PFSH Anesthesia Medical History Anticoagulation adequate with anticoagulant therapy Atrial fibrillation Chronic ischemia posterior cerebral artery stroke This patient has a 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 She has chronic atrial fibrillation, morbid obesity, poorly controlled diabetes with poor compliance on diet, hypertension that is under poor control and recurrent episodes that have brought her to the emergency department with transient neurologic symptoms and no residual. She has chronic findings of right homonymous hemianopsia from her previous left posterior cerebral artery stroke. Her is heavily invested in her care and motivated to help her with compliance on diet and exercise. She was recently started on Zetia. Her blood pressure and lipids will be managed by Dr. Wilson. I have nothing further to add. Her is very concerned that she is not keeping up with her fluids and I advise she should drink water at an appropriate amount. Getting her off of hydrochlorothiazide will probably help. I have nothing further to add. CVA (cerebral vascular accident) Diabetes Hematuria Obesity Obstructive sleep apnea Recurrent UTI Urgency incontinence Urinary tract infection Surgical History Hx of appendectomy Hx of tonsillectomy Family History Father , IN HIS LATE 50'S No problems noted. Mother , AT AGE 65 Hypertension Grandmother Breast cancer maternal Sister Diabetes Hypertension Denies family history of Colon cancer Ovarian cancer Heart disease Hypercholesteremia Uterine cancer Thyroid disease Stroke Social History Substance/Drug Use: unknown Data Anesthesia Cardiac Studies: No Data to Display
--- NOTE | 2022-12-04 13:30 | W.PM.OPSUD ---
Surgery/Procedure H&P Update DATE OF PROCEDURE: December 04, 2022 DATE H&P PERFORMED: 11/18/22 CHANGES TO PREVIOUS DOCUMENTATION: none PREOP DIAGNOSIS: abnormal uterine bleeding PRIMARY INDICATION FOR PROCEDURE: postmenopausal bleeding PLANNED PROCEDURE: Operation Date: 12/04/22 14:00 Proposed Procedures p Hysteroscopy w/Myosure, endometrial sampling 80006, Endometrial polypectomy 18694,N93.9(Not Applicable) - Vadim Liz MD s Endometrial polypectomy 27799(Not Applicable) - Vadim Liz MD
--- NOTE | 2022-12-04 15:11 | ANE.PACU2 ---
Inpatient post-anesthesia follow up: Airway intact: Yes Vital signs: Temperature 97.4 F Pulse Rate 73 Respiratory Rate 18 Blood Pressure 140/84 Pulse Oximetry 92 Oxygen Delivery Me thod Room Air Oxygen Flow Rate 2 Fraction of Inspir ed Oxygen Hydration adequate: Yes Nausea and vomiting: No Pain level: 2 Mental status: Baseline
[2022-12-08 05:16] LABS: Glucose Point of Care 154 mg/dL (70-110)
--- NOTE | 2022-12-09 00:04 | PM.OP ---
Operative Report Date of procedure: December 04, 2022 Pre-op diagnosis: Preop Diagnosis abnormal uterine bleeding Post-op diagnosis: abnormal uterine bleeding Post-op findings: uterus sounded to 8 cm normal endometrial cavity no polyps / fibroids minimal endometrial tissue Procedure done: hysteroscopy curettage of uterus Specimens removed/disposition: endometrial curettings Surgeon: Vadim Liz M.D. Estimated blood loss: 5 cc Complications: none Condition: stable Disposition: PACU Brief History: 72 y.o. with abnormal uterine bleeding Procedure: Informed consent obtained. Patient was taken to the OR and placed supine on the table. General anesthesia was induced. Patient was placed in dorsolithotomy position. The perineum was prepped and draped in the usual fashion. A speculum was placed in the vagina. The anterior lip of the cervix was grasped with a sharp-toothed tenaculum. The cervix was serially dilated with Hegar dilators. A hysteroscope was inserted into the endometrial cavity. The endometrial cavity was seen to be normal. There was minimal endometrial tissue. No polyps or fibroids were seen. The hysteroscope was withdrawn. A sharp curette was then used to obtain endometrial curettings, which were sent to pathology. No bleeding was seen. All instruments were then removed from the uterus, cervix and vagina. The patient was then placed supine, awakened, and taken to the recovery room.
== END 2022-12-04 15:45 | disposition home or self-care (01) ==
PROVIDERS: PCP Family Medicine; Visit Provider Obstetrics & Gynecology
PROC: (CPT 58120; principal; 2022-12-04 13:50)
DX: N95.0 Postmenopausal bleeding (principal); Z79.82 Long term (current) use of aspirin; Z79.4 Long term (current) use of insulin; Z79.891 Long term (current) use of opiate analgesic; I48.20 Chronic atrial fibrillation, unspecified; E66.01 Morbid (severe) obesity due to excess calories; Z68.42 Body mass index [BMI] 45.0-49.9, adult; Z79.01 Long term (current) use of anticoagulants; G47.33 Obstructive sleep apnea (adult) (pediatric); I73.9 Peripheral vascular disease, unspecified; I12.9 Hypertensive chronic kidney disease with stage 1 through stage 4 chronic kidney disease, or unspecified chronic kidney disease; E11.22 Type 2 diabetes mellitus with diabetic chronic kidney disease; E11.65 Type 2 diabetes mellitus with hyperglycemia; N18.9 Chronic kidney disease, unspecified; E78.5 Hyperlipidemia, unspecified; Z86.73 Personal history of transient ischemic attack (TIA), and cerebral infarction without residual deficits
CPT/HCPCS: 58558; 36416; 82962; 88305; 93005; J1100; J2250; J2405; J2704; J3010; J7030

== ENCOUNTER → 2023-02-12 13:41 | Outpatient (BNVA) | payer MEDICARE, SELFPAY | PROVIDERS: PCP Family Medicine; Visit Provider Internal Medicine | DX: I25.10 Atherosclerotic heart disease of native coronary artery without angina pectoris (principal); Z79.01 Long term (current) use of anticoagulants; I48.91 Unspecified atrial fibrillation; E11.9 Type 2 diabetes mellitus without complications; E66.9 Obesity, unspecified; Z68.42 Body mass index [BMI] 45.0-49.9, adult; G47.33 Obstructive sleep apnea (adult) (pediatric); Z79.4 Long term (current) use of insulin | CPT/HCPCS: 99214 ==

== ENCOUNTER → 2023-03-03 10:19 | Outpatient (BNVA) | payer MEDICARE, SELFPAY | PROVIDERS: PCP Family Medicine; Visit Provider Podiatrist Foot & Ankle Surgery | DX: I73.9 Peripheral vascular disease, unspecified (principal); L60.3 Nail dystrophy; L84 Corns and callosities; E11.42 Type 2 diabetes mellitus with diabetic polyneuropathy; Z79.4 Long term (current) use of insulin | CPT/HCPCS: 11056; 11721 ==

== ENCOUNTER → 2023-06-09 10:28 | Outpatient (BNVA) | payer MEDICARE, SELFPAY | PROVIDERS: PCP Family Medicine; Visit Provider Podiatrist Foot & Ankle Surgery | DX: I73.9 Peripheral vascular disease, unspecified (principal); L60.3 Nail dystrophy; L84 Corns and callosities; E11.42 Type 2 diabetes mellitus with diabetic polyneuropathy; Z79.4 Long term (current) use of insulin | CPT/HCPCS: 11055; 11721 ==

== ENCOUNTER → 2023-06-11 10:31 | Outpatient (BNVA) | payer MEDICARE, SELFPAY | PROVIDERS: PCP Family Medicine; Visit Provider Family Medicine | DX: B37.49 Other urogenital candidiasis (principal); N39.0 Urinary tract infection, site not specified | CPT/HCPCS: 81000; 87086; 87106 ==

== ENCOUNTER → 2023-10-13 13:11 | Outpatient (BNVA) | payer MEDICARE, SELFPAY | PROVIDERS: PCP Family Medicine; Visit Provider Podiatrist Foot & Ankle Surgery | DX: I73.9 Peripheral vascular disease, unspecified (principal); L60.3 Nail dystrophy; L84 Corns and callosities; E11.42 Type 2 diabetes mellitus with diabetic polyneuropathy; Z79.4 Long term (current) use of insulin | CPT/HCPCS: 11056; 11721 ==

== ENCOUNTER → 2024-01-14 09:48 | Outpatient (BNVA) | payer MEDICARE, SELFPAY | PROVIDERS: PCP Family Medicine; Visit Provider Family Medicine | DX: E11.9 Type 2 diabetes mellitus without complications (principal); E66.9 Obesity, unspecified; I73.9 Peripheral vascular disease, unspecified; I48.91 Unspecified atrial fibrillation; G47.33 Obstructive sleep apnea (adult) (pediatric); Z13.6 Encounter for screening for cardiovascular disorders; Z79.01 Long term (current) use of anticoagulants; Z79.899 Other long term (current) drug therapy | CPT/HCPCS: 80053; 80061; 83036; 85025 ==

== ENCOUNTER → 2024-01-26 15:03 | Outpatient (BNVA) | payer MEDICARE, SELFPAY | PROVIDERS: PCP Family Medicine; Visit Provider Podiatrist Foot & Ankle Surgery | DX: I73.9 Peripheral vascular disease, unspecified (principal); L60.3 Nail dystrophy; L84 Corns and callosities; E11.42 Type 2 diabetes mellitus with diabetic polyneuropathy; Z79.4 Long term (current) use of insulin | CPT/HCPCS: 11055; 11721 ==

== ENCOUNTER → 2024-02-16 13:43 | Outpatient (BNVA) | payer MEDICARE, SELFPAY | PROVIDERS: PCP Family Medicine; Visit Provider Family Medicine | DX: N39.0 Urinary tract infection, site not specified (principal) | CPT/HCPCS: 81000; 87086 ==

== ENCOUNTER 2024-03-09 16:12 | Inpatient (IN) | payer MEDICARE, SELFPAY ==
[2024-03-09] VITALS (9 sets, daily range): BP systolic 146–180; BP diastolic 84–148; PULSE 103–139; RESP 12–18; TEMP 37.1–37.2; O2SAT 91–97; BMI 43.8; BMI 47.9
--- NOTE | 2024-03-09 16:17 | XRR_ITS ---
PROCEDURE INFORMATION: Exam: XR Chest Exam date and time: 03/09/2024 4:29 PM Age: 74 years old Clinical indication: Other: Weakness TECHNIQUE: Imaging protocol: Radiologic exam of the chest. Views: 1 view. COMPARISON: CR XR chest 1V [id number] 08/02/2019 1:06 AM FINDINGS: Lungs: Central vascular prominence without pulmonary edema. Minimal bibasilar atelectasis. Pleural spaces: Unremarkable. No pleural effusion. No pneumothorax. Heart/Mediastinum: Mild cardiomegaly. Bones/joints: Unremarkable. XR/XR chest 1V portable [id number] IMPRESSION: Central vascular prominence without pulmonary edema. Minimal bibasilar atelectasis.
--- NOTE | 2024-03-09 16:52 | ED_ITS ---
HPI - Extremity Problem 2 General: Chief complaint: Extremity Problem,Nontraumatic Stated complaint: generalized edema Time Seen by Provider: 03/09/24 16:14 History of Present Illness: 74-year-old female with a history of atr ial fibrillation on Eliquis, history of a CVA, chronic anticoagulation, diabetes, obesity, and venous stasis who presents to the emergency room today with fever, mild confusion, worsening pain redness and swelling in her right leg with weeping. She said this been going on for couple of days now. She has no focal motor deficits. No nausea or vomiting. She is normotensive on presentation with a mild tachycardia. Review of Systems 2 Narrative: Constitutional symptoms: Negative except as documented in HPI. Skin symptoms: Negative except as documented in HPI. Eye symptoms: Negative except as documented in HPI. ENMT symptoms: Negative except as documented in HPI. Respiratory symptoms: Negative except as documented in HPI. Cardiovascular symptoms: Negative except as documented in HPI. Gastrointestinal symptoms: Negative except as documented in HPI. Genitourinary symptoms: Negative except as documented in HPI. Musculoskeletal symptoms: Negative except as documented in HPI. Neurologic symptoms: Negative except as documented in HPI. Psychiatric symptoms: Negative except as documented in HPI. Endocrine symptoms: Negative except as documented in HPI. 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 She has chronic atrial fibrillation, morbid obesity, poorly controlled diabetes with poor compliance on diet, hypertension that is under poor control and recurrent episodes that have brought her to the emergency department with transient neurologic symptoms and no residual. She has chronic findings of right homonymous hemianopsia from her previous left posterior cerebral artery stroke. Her is heavily invested in her care and motivated to help her with compliance on diet and exercise. She was recently started on Zetia. Her blood pressure and lipids will be managed by Dr. Wilson. I have nothing further to add. Her is very concerned that she is not keeping up with her fluids and I advise she should drink water at an appropriate amount. Getting her off of hydrochlorothiazide will probably help. I have nothing further to add. Surgical History Hx of tonsillectomy Hx of appendectomy Family History Father , IN HIS LATE 50'S No problems noted. Mother , AT AGE 65 Hypertension Grandmother Breast cancer maternal Sister Diabetes Hypertension Denies family history of Colon cancer Ovarian cancer Heart disease Hypercholesteremia Uterine cancer Thyroid disease Stroke Social History Substance/Drug Use: unknown Physical Exam 2 Narrative: EXAM NARRATIVE: General: Alert, no acute distress. Skin: Warm, dry. Patient has swelling of her bilateral lower extremities. She has extensive old venous stasis dermatitis changes. She has new right leg redness worsening swelling and weeping. Head: Normocephalic, atraumatic. Neck: Supple, trachea midline. Eye: Extraocular movements are intact. Ears, nose, mouth and throat: mucosa moist. Cardiovascular: Regular, Normal peripheral perfusion. Respiratory: Lungs are clear to auscultation, respirations are non-labored, breath sounds are equal, Symmetrical chest wall expansion. Gastrointestinal: Soft, Nontender, Non distended Musculoskeletal: Normal ROM, no deformity. Neurological: Alert and oriented, No focal neurological deficit observed. Psychiatric: Cooperative, appropriate mood & affect. Course 2 Vital Signs: Vital signs: Vital Signs Temperature 99.0 F 03/09/24 16:34 Pulse Rate 103 H 03/09/24 16:34 Respiratory Rate 18 03/09/24 16:34 Blood Pressure 146/108 03/09/24 16:34 Pulse Oximetry 96 03/09/24 16:34 Oxygen Delivery Me thod Nasal Cannula 03/09/24 16:34 Oxygen Flow Rate 4 03/09/24 16:34 MDM - Extremity (Nontraumatic) Medical Decision Making Medical decision making: Differential diagnosis including but not limited to and based on the above HPI, review of systems and physical exam: Patient has an obvious cellulitis. Concern for sepsis so a CBC, blood cultures, lactate, BMP were ordered. Orders placed to evaluate differential diagnosis based on the above differential, HPI and physical exam Lab Review: Laboratory results were reviewed and interpreted by myself the emergency room physician. CBC shows a white count of 22,000. She is febrile and mildly tachycardic so being treated as septic. Lactate and blood cultures were ordered. However holding on any fluids that she has issues with fluid retention in this part of the issue with her legs and her blood pressure is normotensive. No acute renal failure. Consultation: I spoke with Dr. Stephen who accepts the patient for admission to the hospital. Assessment and plan: Lower extremity cellulitis Possible sepsis Venous stasis dermatitis Venous stasis History of DVT Fever ?IV meropenem and Zyvox were given. Holding on any fluids given her swelling. Low threshold if her vital signs do not remained stable. -I discussed the patient with the hospitalist on-call who is admitting the patient. - Discussed findings and plan with patient. Answered any questions. - All laboratory values were reviewed and interpreted personally by myself, the ER physician - All imaging was reviewed and interpreted personally by myself, the ER physician. - Evaluation and treatment of this problem were appropriate in the emergency setting Lab Data 03/09/24 17:08 03/09/24 17:08 Laboratory Results WBC 22.67 10^3/uL (3.29-11.43) H 03/09/24 17:08 RBC 5.84 10^6/uL (3.85-5.65) H 03/09/24 17:08 Hgb 17.10 g/dL (11.27-16.99) H 03/09/24 17:08 Hct 53.3 % (36-47) H 03/09/24 17:08 MCV 91.3 fl (85-98) 03/09/24 17:08 MCH 29.3 pg (27-33) 03/09/24 17:08 MCHC 32.1 g/dL (30-55) 03/09/24 17:08 RDW 14.9 % (12.1-15.1) 03/09/24 17:08 Plt Count 172 10^3/cmm (157-399) 03/09/24 17:08 MPV 11.5 fL (7.4-10.4) H 03/09/24 17:08 Neut % (Auto) 92.1 % 03/09/24 17:08 Lymph % (Auto) 3.5 % 03/09/24 17:08 Morrill % (Auto) 3.5 % 03/09/24 17:08 Eos % (Auto) 0.0 % 03/09/24 17:08 Baso % (Auto) 0.3 % 03/09/24 17:08 Neut # (Auto) 20.88 10^3/uL (1.8-7.7) H 03/09/24 17:08 Lymph # (Auto) 0.8 10^3/uL (0.8-4.8) 03/09/24 17:08 Morrill # (Auto) 0.8 10^3/uL (0.2-0.9) 03/09/24 17:08 Eos # (Auto) 0.0 10^3/uL (0.0-0.8) 03/09/24 17:08 Baso # (Auto) 0.1 10^3/uL (0.0-0.1) 03/09/24 17:08 Nucleated RBC % (auto) 0 % 03/09/24 17:08 Nucleated RBCs # 0.0 /100WBC 03/09/24 17:08 ESR 11 mm/hr (0-15) 03/09/24 17:08 Sodium 138 mmol/L (136-145) 03/09/24 17:08 Potassium 5.0 mmol/L (3.5-5.1) 03/09/24 17:08 Chloride 101 mmol/L (98-107) 03/09/24 17:08 Carbon Dioxide 23 mmol/L (22-29) 03/09/24 17:08 Anion Gap 19.0 (5-19) 03/09/24 17:08 BUN 21 mg/dL (8-23) 03/09/24 17:08 Creatinine 1.1 mg/dL (0.5-0.9) H 03/09/24 17:08 GFR Calculation Not Reportable 03/09/24 17:08 Glucose 173 mg/dL (65-115) H 03/09/24 17:08 Calculated Osmolality 293 mOsm/kg (285-295) 03/09/24 17:08 Calcium 8.7 mg/dL (8.5-10.5) 03/09/24 17:08 Total Bilirubin 1.3 mg/dL (0.15-1.2) H 03/09/24 17:08 AST 16 U/L (0-32) 03/09/24 17:08 ALT 23 U/L (0-33) 03/09/24 17:08 Alkaline Phosphatase 65 U/L (35-105) 03/09/24 17:08 C-Reactive Protein 97.3 mg/L (0.0-4.9) H 03/09/24 17:08 Total Protein 7.2 g/dL (6.6-8.7) 03/09/24 17:08 Albumin 3.9 g/dL (3.5-5.2) 03/09/24 17:08 Globulin 3.3 g/dL (1.3-4.6) 03/09/24 17:08 No radiology studies performed this visit Discharge Plan Discharge Patient Disposition: Admitted As Inpatient Clinical Impression: Lower extremity cellulitis, Venous stasis, Sepsis Condition: Stable Coding Level of Care Code ED Urology Physician for Tulio Ashford
[2024-03-09] MEDS: cefepime 2,000 MG in sodium chloride 0.9% (plus) 50 ML 100 MG IV (16:57)
[2024-03-09 17:24] LABS: Basophils # 0.1 10^3/uL (0.0-0.1); Basophils % 0.3 %; Hematocrit 53.3 % (36-47); Lymphocytes # 0.8 10^3/uL (0.8-4.8); Lymphocytes % 3.5 %; Mean Corpuscular HGB Conc 32.1 g/dL (30-55); Mean Corpuscular Hemoglobin 29.3 pg (27-33); Mean Corpuscular Volume 91.3 fl (85-98); Mean Platelet Volume 11.5 fL (7.4-10.4); Monocytes # 0.8 10^3/uL (0.2-0.9); Monocytes % 3.5 %; Neutrophils # 20.88 10^3/uL (1.8-7.7); Neutrophils % 92.1 %; Nucleated Red Blood Cells % 0 %; Platelet Count 172 10^3/cmm (157-399); Red Blood Count 5.84 10^6/uL (3.85-5.65); Red Cell Distribution Width 14.9 % (12.1-15.1); White Blood Count 22.67 10^3/uL (3.29-11.43)
[2024-03-09 17:27] LABS: Erythrocyte Sedimentation Rate 11 mm/hr (0-15)
[2024-03-09 17:50] LABS: Alanine Aminotransferase 23 U/L (0-33); Albumin Level 3.9 g/dL (3.5-5.2); Alkaline Phosphatase 65 U/L (35-105); Aspartate Amino Transferase 16 U/L (0-32); Blood Urea Nitrogen 21 mg/dL (8-23); C Reactive Protein 97.3 mg/L (0.0-4.9); Calcium 8.7 mg/dL (8.5-10.5); Carbon Dioxide 23 mmol/L (22-29); Chloride 101 mmol/L (98-107); Globulin 3.3 g/dL (1.3-4.6); Glucose 173 mg/dL (65-115); Osmolality Calculated 293 mOsm/kg (285-295); Sodium 138 mmol/L (136-145); Total Bilirubin 1.3 mg/dL (0.15-1.2); Total Protein 7.2 g/dL (6.6-8.7)
[2024-03-09 17:52] LABS: Creatinine Clr Calc Pharmacy 64.0488
[2024-03-09 17:57] LABS: Procalcitonin 1.18 ng/mL (0-0.5)
[2024-03-09] MEDS: linezolid premix 600 MG/300 ML PREMIX 300 MG IV (18:00)
--- NOTE | 2024-03-09 18:05 | ECG_ITS ---
[facility] Test Date: 2024-03-09 Pat Name: Kay Munroe Department: Room: 254 Gender: Female Organ Builder: : 1950 Requested By: Abdelrahman Stephen Order Number: [id number] Rena MD: Remington Philip M.D. Measurements Intervals [place] Rate: 108 P: 0 ME: 0 QRS: 73 QRSD: 108 T: -34 QT: 360 QTc: 484 Interpretive Statements ATRIAL FIBRILLATION WITH RAPID VENTRICULAR RESPONSE LOW QRS VOLTAGE IN PRECORDIAL LEADS [QRS DEFLECTION < 1.0 mV IN CHEST LEADS] ANTEROSEPTAL MYOCARDIAL INFARCTION , PROBABLY OLD [40+ ms Q WAVE IN V1-V4] Compared to ECG 12/04/2022 13:18:58 No significant changes Electronically Signed On 03-10-2024 6:49:10 CDT by Remington Philip M.D. [id number]
--- NOTE | 2024-03-09 18:05 | CTR_ITS ---
PROCEDURE INFORMATION: Exam: CT Right Lower Extremity Without Contrast; Lower Leg Exam date and time: 03/09/2024 6:27 PM Age: 74 years old Clinical indication: Swelling, leg or foot; Additional info: Swelling, pain TECHNIQUE: Imaging protocol: CT of the right lower extremity without contrast was performed. Exam focused on the lower leg. Radiation optimization: All CT scans at this facility use at least one of these dose optimization techniques: automated exposure control; mA and/or kV adjustment per patient size (includes targeted exams where dose is matched to clinical indication); or iterative reconstruction. COMPARISON: No relevant prior studies available. RADIATION DOSE METRICS: Total DLP (mGy-cm): 343 FINDINGS: Bones/joints: No acute fractures or subluxations. Degenerative changes of the knee with joint space narrowing and marginal osteophytes. No joint effusion. Chronic appearing fracture of the medial malleolus. The ankle mortise is well aligned. Small osseous fragments inferiorly adjacent to the lateral malleolus may represent chronic avulsion fractures. Degenerative changes of the ankle with joint space narrowing. Soft tissues: Moderate soft tissue swelling of the distal lower extremity without focal fluid collection. Vasculature: Atherosclerotic calcifications. CT/CT lower leg RT wo con* [id number] IMPRESSION: 1. No acute fractures or subluxations. Degenerative changes of the knee and ankle. Chronic appearing nondisplaced avulsion fracture of the medial malleolus. 2. Moderate soft tissue swelling of the lower extremity.
--- NOTE | 2024-03-09 18:05 | USR_ITS ---
PROCEDURE INFORMATION: Exam: US Duplex Right Lower Extremity Veins, Limited Exam date and time: 03/09/2024 7:11 PM Age: 74 years old Clinical indication: Edema, localized; Lower extremity, right; Patient HX: Profound edema and erythema with open, weeping sores of the right calf. No history of dvt per patient. ; Additional info: Swelling TECHNIQUE: Imaging protocol: Real-time duplex ultrasound of the right extremity with 2-D lutz scale, color Doppler flow and spectral waveform analysis including responses to compression and other maneuvers (when performed) with image documentation. Limited exam was focused on the right lower extremity veins. COMPARISON: CT lower leg RT wo con* [id number] 03/09/2024 6:27 PM FINDINGS: Right deep veins: Unremarkable. The common femoral, femoral, proximal profunda femoral and popliteal veins are patent without thrombus. Normal Doppler waveforms. Normal compressibility and/or augmentation response. Superficial veins: Greater saphenous vein at the saphenofemoral junction is patent without thrombus. Soft tissues: Soft tissue swelling of the lower extremity. No focal fluid collections. US/[place] [id number] IMPRESSION: No evidence of deep vein thrombosis.
--- NOTE | 2024-03-09 18:07 | P.HP_ITS ---
Providers/Chief Complaint 2 Primary Care Provider: jAay Robertson DO Chief Complaint: generalized edema History of Present Illness Kay Munroe is a 74 year old female with a past medical history of atrial fibrillation on Eliquis therapy, history of CVA, h history of peripheral vascular disease diabetic polyneuropathy, hypertension, insulin-dependent type 2 diabetes mellitus, hyperlipidemia, morbid obesity, who presents to [facility] due to right lower extremity swelling. Currently patient is alert to person, not to place, not to time, she does not know her address, she knows her name but does not know her birthdate, is encephalopathic at times. The history I was able to get from her is that she is here in the hospital because she has been experiencing right lower extremity pain and swelling and tenderness, she does report feeling feverish, she does report having cats at home and the potential that the cats have licked her wounds. She is hypertensive, tachycardic, requiring on 4 L, temperature 99, I was unable to get a straightforward answer from her if she uses oxygen at home, has diffuse crackles on exam, 2+ pitting edema bilateral lower extremities, she does not know what blood thinner she is on, she is not sure if she took her medications this morning, she is not sure how much insulin she takes, she tells me that Rodrick takes care of her medications Review of Systems 2 Const: Reports: fever(s) Card: Denies: chest pain Resp: Reports: dyspnea Skin/Breast: Reports: rash Medications/Allergies Home Medications Medication Instructions Recorded Confirmed Last Taken Type apixaban 5 mg tablet (Eliquis) 5 mg PO BID 08/22/19 01/26/24 11/29/22 History aspirin 81 mg tablet,delayed 81 mg PO ONCE 08/22/19 01/26/24 11/29/22 History release (Aspir-) ezetimibe 10 mg tablet (Zetia) 10 mg PO ONCE 08/22/19 01/26/24 12/03/22 History fluticasone propionate 50 1 spray intranasal Q12H 08/22/19 01/26/24 12/03/22 History mcg/actuation nasal spray,suspension insulin NPH isoph U-100 human 100 38 unit SUBCUT BID PRN 08/22/19 01/26/24 12/03/22 History unit/mL subcutaneous suspension Hyperglycemia (Novolin N NPH U-100 Insulin isophane) loratadine 10 mg tablet (Claritin) 10 mg PO ONCE 08/22/19 01/26/24 12/03/22 History metoprolol tartrate 25 mg tablet 12.5 mg PO BID 08/22/19 01/26/24 12/04/22 History oxybutynin chloride 15 mg 15 mg PO ONCE 08/22/19 01/26/24 12/03/22 History tablet,extended release 24 hr tramadol 50 mg tablet 50 mg PO Q4H PRN Pain 08/22/19 01/26/24 Unknown History cyclobenzaprine 5 mg tablet 5 mg PO BID 03/01/20 01/26/24 12/03/22 History diltiazem HCl 120 mg 240 mg PO BID 03/01/20 01/26/24 12/03/22 History capsule,extended release 12 hr empagliflozin 25 mg tablet 25 mg PO QAM 03/01/20 01/26/24 12/03/22 History (Jardiance) lisinopril 10 mg tablet 40 mg PO DAILY 01/22/21 01/26/24 12/03/22 History ketoconazole 2 % shampoo 1 applic topical .2 x weekly #120 08/19/21 01/26/24 12/03/22 Rx mL ketoconazole 2 % topical cream 1 applic topical BID #30 grams 08/19/21 01/26/24 12/03/22 Rx cholecalciferol (vitamin D3) 125 125 mcg PO DAILY 10/16/21 01/26/24 12/03/22 History mcg (5,000 unit) capsule foqtceiq-ofbuqqa-lili-lutein tablet 1 tab PO DAILY 10/16/21 01/26/24 12/03/22 History cpap #1 ea 03/20/22 01/26/24 Unknown Rx methenamine hippurate 1 gram tablet 1 g PO BID #60 tabs 05/19/22 01/26/24 12/03/22 Rx triamcinolone acetonide 0.1 % 1 applic topical BID PRN 02/12/23 01/26/24 Unknown History topical ointment fluconazole 100 mg tablet 100 mg PO DAILY PRN yeast 06/15/23 01/26/24 Unknown Rx infection #14 tabs nitrofurantoin 100 mg PO Q12H 5 days #10 caps 08/07/23 01/26/24 Unknown Rx monohydrate/macrocrystals 100 mg capsule (Macrobid) fluconazole 100 mg tablet 100 mg PO DAILY tinea #5 tabs 10/09/23 01/26/24 Unknown Rx insulin glargine 100 unit/mL (3 80 unit (0.8 mL) SUBCUT DAILY #15 10/09/23 01/26/24 Unknown Rx mL) subcutaneous pen (Lantus mL Solostar U-100 Insulin) metoclopramide HCl 5 mg tablet See Rx Instructions .Route 10/13/23 01/26/24 Unknown Rx .COMPLEX #90 tabs bupropion HCl 75 mg tablet 75 mg PO BID #60 tabs 12/28/23 01/26/24 Unknown Rx Allergies Allergy/AdvReac Type Severity Reaction Status Date / Time Penicillins AdvReac nausea/vomi Verified 03/09/24 16:47 ting Dpkmnuo-QGH-YbR Reductase AdvReac muscle pain Verified 03/09/24 16:47 Inhibitor [Sxcmukm-Dhb-Uqn Reductase Inhibitor] PFSH Acute 2 PFSH: Medical History Postmenopausal bleeding Hematuria Urinary tract infection Urgency incontinence Recurrent UTI CVA (cerebral vascular accident) Anticoagulation adequate with anticoagulant therapy Diabetes Obesity Obstructive sleep apnea Atrial fibrillation Chronic ischemia posterior cerebral artery stroke This patient has a 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 She has chronic atrial fibrillation, morbid obesity, poorly controlled diabetes with poor compliance on diet, hypertension that is under poor control and recurrent episodes that have brought her to the emergency department with transient neurologic symptoms and no residual. She has chronic findings of right homonymous hemianopsia from her previous left posterior cerebral artery stroke. Her is heavily invested in her care and motivated to help her with compliance on diet and exercise. She was recently started on Zetia. Her blood pressure and lipids will be managed by Dr. Wilson. I have nothing further to add. Her is very concerned that she is not keeping up with her fluids and I advise she should drink water at an appropriate amount. Getting her off of hydrochlorothiazide will probably help. I have nothing further to add. Surgical History Hx of tonsillectomy Hx of appendectomy Family History Father , IN HIS LATE 50'S No problems noted. Mother , AT AGE 65 Hypertension Grandmother Breast cancer maternal Sister Diabetes Hypertension Denies family history of Colon cancer Ovarian cancer Heart disease Hypercholesteremia Uterine cancer Thyroid disease Stroke Social History Substance/Drug Use: unknown Vitals/I&O/Wt Last Vital Signs Temp 99.0 F 03/09/24 16:34 Pulse 103 H 03/09/24 16:34 Resp 18 03/09/24 16:34 BP 146/108 03/09/24 16:34 Pulse Ox 96 03/09/24 16:34 O2 Del Method Nasal Cannula 03/09/24 16:34 O2 Flow Rate 4 03/09/24 16:34 03/09/24 03/09/24 03/09/24 06:59 14:59 22:59 Intake Total 50 / 50 Balance 50 / 50 Weight last 48 hrs Weight 127.006 kg Physical Exam 2 Const: COMMON NORMALS: no acute distress EXAM LIMITATIONS: altered mental status ORIENTATION/CONSCIOUSNESS: Yes awake, Yes oriented to person and Yes confused; not oriented to place and not oriented to time HENMT: COMMON NORMALS: normocephalic HEAD & SCALP: normocephalic Eye: COMMON NORMALS: Equal, round and reactive pupils present Resp: COMMON NORMALS: normal respiratory effort, No retractions, No use of accessory muscles and clear to auscultation bilaterally AUSCULTATION: cristin hodge Cardio: COMMON NORMALS: no JVD, regular rate, regular rhythm, S1 normal heart sound present and S2 normal heart sound present RATE: tachycardic RHYTHM: regular rhythm HEART SOUNDS: S1 normal heart sound present and S2 normal heart sound present GI: COMMON NORMALS: Normal to inspection, nondistended, normoactive bowel sounds present, Soft to palpation and non-tender OTHER: Morbidly obese abdomen Extremity: NARRATIVE EXTREMITY EXAM: Bilateral extremities, superficial skin changes bilateral lower extremities related to diabetes, skin flaking, dryness of the skin, 2+ pitting edema, ? Right lower extremity, erythema, swelling, tenderness, extending from just below the knee joint, to just above the ankle, ? Does have calf tenderness ? Bilateral onychodystrophy of toenails Neuro: OTHER: Can follow basic neurologic testing such as being able to smile for me, wiggling her toes, moving bilateral upper extremities, cannot follow any other neurologic testing due to encephalopathy Sepsis: Is patient septic: Yes Focused sepsis exam performed: Yes F ocused sepsis exam: DP PT pulses are palpable although diminished bilaterally, mild mottling bilateral lower extremities, cap refill greater than 2 seconds, Date exam was performed: 03/09/24 Time exam was performed: 18:11 Data 03/09/24 17:08 03/09/24 17:08 Micro: Microbiology 03/09/24 16:59 Blood Culture - Preliminary Blood SPECIMEN COLLECTED 03/09/24 17:08 Blood Culture - Preliminary Blood SPECIMEN COLLECTED A&P Assessment and plan (1) Acute encephalopathy: (2) Sepsis: (3) Lower extremity cellulitis: (4) Atrial fibrillation: (5) Peripheral arterial disease: (6) Venous stasis: (7) Diabetes: (8) Obesity: (9) Obstructive sleep apnea: (10) Chronic ischemia posterior cerebral artery stroke: Plan Acute encephalopathy ? Likely secondary to sepsis from cellulitis ? Neurochecks ? Aspiration precautions ? Monitor mentation closely Right lower extremity cellulitis ? Does endorse that she has cats and there is a possibility that the cats have licked her wounds ? Does have a history of type 2 diabetes mellitus ? CT right lower extremities ? Continue vancomycin ? Add meropenem ? Follow blood cultures ? Does have peripheral arterial disease, DP PT pulses are diminished bilaterally, will do arterial ultrasound ? She is not sure if she has been taking her Eliquis, venous ultrasound for DVT Sepsis secondary to cellulitis Sepsis features met given tachycardia, leukocytosis, elevated Pro-Rufino, CRP, acute encephalopathy Bilateral lower extremity edema, with crackles on exam, likely CHF exacerbation ? 1 dose IV Lasix 40 mg IV push ? Bnp ? Serial troponins, serial EKGs Type 2 diabetes mellitus ? Patient is unsure of how much insulin she is taking ? Moderate dose sliding scale Hypertension, patient is quite hypertensive in the emergency room ? Continue home blood pressure medications Atrial fibrillation ? Continue Eliquis ? Continue metoprolol Acute hypoxia currently on 4 L, chest x-ray showing pulm vascular congestion likely CHF exacerbation, Lasix as above Obtain ABG Full code ? Eliquis for DVT prophylaxis Attestations 2 Medical Necessity Statement*: Patient requires hospitalization, inpatient, greater than 2 midnights, for concerns for sepsis secondary to right lower extremity cellulitis, CHF exacerbation, fluid overload, acute encephalopathy Diagnoses Acute encephalopathy G93.40 Sepsis A41.9 Lower extremity cellulitis L03.119 Atrial fibrillation I48.91 Peripheral arterial disease I73.9 Venous stasis I87.8 Diabetes E11.9 Obesity E66.9 Obstructive sleep apnea G47.33 Chronic ischemia posterior cerebral artery stroke I69.30
--- NOTE | 2024-03-09 18:13 | USR_ITS ---
PROCEDURE INFORMATION: Exam: US Duplex Bilateral Lower Extremity Arteries Exam date and time: 03/09/2024 7:26 PM Age: 74 years old Clinical indication: Other: Clinically diminished pedal pulses; Additional info: Pad TECHNIQUE: Imaging protocol: Real-time ultrasound scan of the arteries of the bilateral lower extremities with 2-D lutz scale, color Doppler flow and spectral waveform analysis. Images documented and saved. COMPARISON: [place] [id number] 03/09/2024 7:11 PM FINDINGS: Right common femoral artery: No occlusion or significant stenosis. Normal waveform. Right superficial femoral artery: No occlusion or significant stenosis. Normal waveform. Right popliteal artery: No occlusion or significant stenosis. Normal waveform. Right calf/foot arteries: No occlusion or significant stenosis in the visualized arteries. Normal waveforms. Dorsalis pedis artery is patent. Left common femoral artery: No occlusion or significant stenosis. Normal waveform. Left superficial femoral artery: No occlusion or significant stenosis. Normal waveform. Left popliteal artery: No occlusion or significant stenosis. Normal waveform. Left calf/foot arteries: No occlusion or significant stenosis in the visualized arteries. Normal waveforms. Dorsalis pedis artery [place] patent. US/[place] [id number] IMPRESSION: Limited examination due to patient's body habitus and significant edema of the extremities. No stenosis or occlusion.
[2024-03-09 18:47] LABS: Troponin(5th) Baseline 18 ng/L (0-10)
[2024-03-09 18:49] LABS: ABG PCO2 36.6 mmHg (35-45); ABG PH Result 7.43 (7.35-7.45); Arterial Blood Gas Hematocrit 52.8 % (37-47); Base Excess ABG 0.5 mmol/L (-2.0-2.0); Blood Gas Allen Test Pos; Blood Gas Operator Identificat WALCI; Blood Gas Sample Site Radial, right; Blood Gas Sample Type Arterial; HCO3 ABG 24.4 mmol/L (22-26); Oxygen Device ROOM AIR; PO2 ABG 63.8 mmHg (80.0-100.0); PO2 FiO2 Ratio Arterial Blood 303
[2024-03-09 19:02] LABS: Lactic Sepsis W/Reflex 2.1 mmol/L (0.5-2.2)
--- NOTE | 2024-03-09 19:26 | PC.NURSE ---
Rodrick Malin's cell phone to be reached at is [phone]
[2024-03-09] MEDS: hyDRALAzine 20 mg/mL INJ 1 mL IVP (19:31)
[2024-03-09 20:38] LABS: Reflex Lactate Order REFLEX LACTIC ORDERD
[2024-03-09 20:53] LABS: NT Pro B Type Natriuretic Pept 494 pg/mL (0-125)
--- NOTE | 2024-03-09 21:21 | ECG_ITS ---
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 Measurements Intervals [place] Rate: 126 P: 0 VT: 0 QRS: -27 QRSD: 106 T: 93 QT: 310 QTc: 449 Interpretive Statements ATRIAL FIBRILLATION WITH RAPID VENTRICULAR RESPONSE LOW QRS VOLTAGE IN PRECORDIAL LEADS [QRS DEFLECTION < 1.0 mV IN CHEST LEADS] ANTEROSEPTAL MYOCARDIAL INFARCTION , PROBABLY OLD [40+ ms Q WAVE IN V1-V4] Compared to ECG 03/09/2024 18:40:51 No significant changes Electronically Signed On 03-10-2024 6:50:28 CDT by Remington Philip M.D. [id number]
[2024-03-09 21:32] LABS: Glucose Point of Care 241 mg/dL (70-110)
[2024-03-09 22:00] LABS: Lactic Acid level (Lactate) 3.5 mmol/L (0.5-2.2)
[2024-03-09 22:09] LABS: Chol HDL Ratio 2.75 mg/dL (0.0-4.40); Cholesterol 162 mg/dL (0-200); HDL Cholesterol 59 mg/dL (60-100); LDL Cholesterol Calculated 76 mg/dL (50-129); LDL HDL Ratio 1.29 RATIO (0.00-3.22); Thyroid Stimulating Hormone 1.47 uIU/mL (0.27-4.20); Triglycerides 133 mg/dL (0-150)
[2024-03-09 22:20] LABS: Estmated Average Glucose 177; Hemoglobin A1C 7.8 % (4.0-6.0)
[2024-03-09] MEDS: FUROsemide 10 mg/mL SDV 4mL 40 MG IVP (22:34)
[2024-03-09] MEDS: insulin lispro 100 unit/1 mL SUBCUT (22:35)
[2024-03-09] MEDS: apixaban 5 mg Tablet PO (22:35)
[2024-03-09] MEDS: pantoprazole 40 mg SDV IVP (22:35)
[2024-03-09] MEDS: metoprolol tartrate 25 mg Tablet 12.5 MG PO (22:36)
[2024-03-09] MEDS: aspirin 81 mg EC Tablet PO (22:36)
[2024-03-09] MEDS: vancomycin 1,250 MG/250 ML PIGGYBACK 250 MG IV (22:37)
[2024-03-10] VITALS (11 sets, daily range): BP systolic 113–169; BP diastolic 71–94; PULSE 66–115; RESP 13–19; TEMP 36.8–38.2; O2SAT 88–95
--- NOTE | 2024-03-10 00:03 | ECG_ITS ---
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 Measurements Intervals [place] Rate: 108 P: 0 SD: 0 QRS: -22 QRSD: 96 T: 76 QT: 336 QTc: 451 Interpretive Statements ATRIAL FIBRILLATION WITH RAPID VENTRICULAR RESPONSE LOW QRS VOLTAGE IN PRECORDIAL LEADS [QRS DEFLECTION < 1.0 mV IN CHEST LEADS] ANTEROSEPTAL MYOCARDIAL INFARCTION , PROBABLY OLD [40+ ms Q WAVE IN V1-V4] Compared to ECG 03/09/2024 21:53:06 No significant changes Electronically Signed On 03-11-2024 1:02:20 CDT by Jose Sierra M.D. [id number]
[2024-03-10 00:14] LABS: Add Urine Microscopic? YES; Bilirubin Urine Neg (Negative); Blood Urine 3+ (Negative); Glucose Urine UA 4+ (Normal); Ketones Urine 1+ (Negative); Leukocyte Esterase Urine 2+ (Negative); Nitrate Urine Negative (Negative); Protein Urine 1+ (Negative); Urine Appearance Cloudy (CLEAR); Urine Color Yellow (Yellow); Urobilinogen Urine Neg (Negative); pH Urine 5 (5-7)
[2024-03-10 00:15] LABS: Add Urine Culture? Yes; Bacteria Urine 2+ /hpf; Mucus Urine 1+ /hpf; WBC Urine TOO NUMEROUS TO CNT /hpf (0-5)
[2024-03-10 01:32] LABS: Troponin 5 6HR 26.79 ng/L (0-10); Troponin 5 6HR Delta 8.79 ng/L (0-12)
[2024-03-10] MEDS: meropenem 500 mg SDV IVP ×3 (01:44→17:20)
[2024-03-10 05:36] LABS: Basophils # 0.1 10^3/uL (0.0-0.1); Basophils % 0.3 %; Hematocrit 54.9 % (36-47); Lymphocytes # 0.8 10^3/uL (0.8-4.8); Lymphocytes % 4.4 %; Mean Corpuscular HGB Conc 31.9 g/dL (30-55); Mean Corpuscular Hemoglobin 28.6 pg (27-33); Mean Corpuscular Volume 89.7 fl (85-98); Mean Platelet Volume 11.8 fL (7.4-10.4); Monocytes % 5.8 %; Neutrophils % 88.9 %; Nucleated Red Blood Cells % 0 %; Platelet Count 153 10^3/cmm (157-399); Red Blood Count 6.12 10^6/uL (3.85-5.65); Red Cell Distribution Width 15.2 % (12.1-15.1); White Blood Count 17.87 10^3/uL (3.29-11.43)
[2024-03-10 06:08] LABS: Alanine Aminotransferase 19 U/L (0-33); Albumin Level 3.6 g/dL (3.5-5.2); Alkaline Phosphatase 72 U/L (35-105); Aspartate Amino Transferase 15 U/L (0-32); Blood Urea Nitrogen 22 mg/dL (8-23); Calcium 9.1 mg/dL (8.5-10.5); Carbon Dioxide 22 mmol/L (22-29); Chloride 99 mmol/L (98-107); Creatinine Clr Calc Pharmacy 61.6488; Globulin 3.8 g/dL (1.3-4.6); Glucose 282 mg/dL (65-115); Magnesium 2.2 mg/dL (1.7-2.3); Osmolality Calculated 300 mOsm/kg (285-295); Phosphorus 3.7 mg/dL (2.5-4.5); Sodium 138 mmol/L (136-145); Total Bilirubin 1.5 mg/dL (0.15-1.2); Total Protein 7.4 g/dL (6.6-8.7)
[2024-03-10 06:09] LABS: Anion Gap 21.2 (5-19); Potassium 4.2 mmol/L (3.5-5.1)
[2024-03-10 06:38] LABS: Glucose Point of Care 258 mg/dL (70-110)
[2024-03-10] MEDS: insulin lispro 100 unit/1 mL SUBCUT ×4 (08:29→20:41)
[2024-03-10] MEDS: metoprolol tartrate 25 mg Tablet 12.5 MG PO ×2 (08:30→17:20)
[2024-03-10] MEDS: apixaban 5 mg Tablet PO ×2 (08:30→17:20)
[2024-03-10] MEDS: lisinopril 10 mg Tablet 40 MG PO (08:30)
[2024-03-10] MEDS: nystatin powder 15 gm Btl 1 APPLIC TOPICAL ×2 (08:30→17:21)
--- NOTE | 2024-03-10 09:07 | PC.PHAR ---
PT VERIFIED MEDICATIONS AND PHARMACY VERIFIED ONLY 5 MEDICATIONS. PT IS [facility]-FAXING FOR MED LIST 03/10/24 9:05
--- NOTE | 2024-03-10 09:34 | PC.CHAP ---
Pastoral Care Encounter/Spiritual Assessment Type of Contact [] Declined economic adviser visit [] Patient/Family/Request visit [] Outpatient visit [] Follow-up visit [] Physician referral [] Code/Alert [x] Routine visit [] Staff referral [] Actively dying [] Patient sleeping [] Family support [] [] Out of room [] Palliative care [] [] Receiving care in room [] Pre-surgical visit [] Trauma [] Long length of stay [] ICU visit [] Other: Relational/Emotional Strength [x] Patient feels connected with others/family/visitors/staff [] Distress [] Loneliness/isolation [] Abandonment Spirituality of Patient [x] Person of Nancy [] Attends Adventist of their Nancy [x] Believes in Prayer [] Reads Bible or Hoahaoism materials [] There are Spiritual issues to be addressed Sprinkler Helper Interventions [x] Prayer [x] Active listening [] Non-anxious presence [x] Spiritual/emotional support [] Crisis/trauma care [] Spiritual counseling [] Bereavement support [] Provided bereavement packet [] Provided Bible/devotional materials [] Provided toy/stuffed animal, coloring book to patient or family member [] Provided Communion [] Anointing/[place] [] Salvation [x] Completed spiritual assessment [] Other: Impact on Illness or Injury [] Angry [] Fearful [] Anxious [] Often cries [] Exhaustion [] Unable to work [] Unable to attend mormonism [] Unable to walk/stand [] Unable to read [] Unable to drive [] Unable to eat/drink [] Unable to sleep [] Unable to be with family [] Patient intubated [] Other: Summary Time spent with patient 5 min
--- NOTE | 2024-03-10 10:45 | PC.PHAR ---
PT IS VA-VERIFIED ALL MEDS EXCEPT VA LIST AND ADDED THEM WHEN THEY FAXED TO ME.
[2024-03-10 12:12] LABS: Glucose Point of Care 347 mg/dL (70-110)
[2024-03-10] MEDS: FUROsemide 10 mg/mL SDV 4mL 40 MG IVP (12:29)
--- NOTE | 2024-03-10 13:10 | P.PN_ITS ---
Subjective 2 Subjective: - Patient was seen this morning she is a lert to person, not place, not to time, she follows all commands, she does recognize me from yesterday, she denies any fevers, no chills, no cough, no abdominal pain -I spoke to patient's life partner over the phone, he advises me that Kay due to her morbid obesity remains bound to a chair most of the day, it is hard to get her to shower, the extent of her physical exertion is to go to the shower but beyond this she does not do a lot of physical activities, he is worried about her skin routine, if there is any agents that we could recommend that would help keep her skin clean, in addition she has been complaining of back pain and knee pain, if we could help address that, he tells me that Kay is at her baseline, he has spoken to her over the phone, after her strokes, she this is her level of cognition Vitals/I&O/Wt Last Vital Signs Temp 100.7 F H 03/10/24 11:24 Pulse 100 03/10/24 11:24 Resp 17 03/10/24 11:24 BP 141/81 03/10/24 11:24 Pulse Ox 90 03/10/24 11:24 O2 Del Method Nasal Cannula 03/10/24 11:24 O2 Flow Rate 1 03/10/24 11:24 03/09/24 03/10/24 03/10/24 22:59 06:59 14:59 Intake Total 50 / 50 1200 / 1250 1072 / 1072 Output Total 50 / 50 4400 / 4450 Balance 0 / 0 -3200 / -3200 1072 / 1072 Weight last 48 hrs Weight 137.983 kg Weight 138.799 kg Weight 127.006 kg Physical Exam 2 Const: COMMON NORMALS: no acute distress ORIENTATION/CONSCIOUSNESS: Yes awake, Yes oriented to person and Yes oriented to place Resp: COMMON NORMALS: normal respiratory effort, No retractions, No use of accessory muscles and clear to auscultation bilaterally AUSCULTATION: clear to auscultation bilaterally Cardio: COMMON NORMALS: regular rate, regular rhythm, S1 normal heart sound present and S2 normal heart sound present RATE: regular rate RHYTHM: r egular rhythm HEART SOUNDS: S1 normal heart sound present and S2 normal heart sound present GI: COMMON NORMALS: Normal to inspection, nondistended, normoactive bowel sounds present and non-tender Extremity: COMMON NORMALS: no pedal edema Neuro: SENSORIUM/ORIENTATION: Yes oriented to person and Yes oriented to place Psych: COMMON NORMALS: mental status grossly normal Urinary Catheter Management: Goodman: Cath Placed During This Visit: yes Reason for Continuing Indwelling Catheter: Acute Urinary Retention or Obstruction Urinary Catheter Date of Insertion: 03/09/24 Urinary Catheter Time of Insertion: 22:00 Data 03/10/24 05:17 03/10/24 05:17 Micro: Microbiology 03/09/24 16:59 Blood Culture - Preliminary Blood SPECIMEN COLLECTED 03/09/24 17:08 Blood Culture - Preliminary Blood SPECIMEN COLLECTED A&P Assessment and plan (1) Acute encephalopathy: (2) Sepsis: (3) Lower extremity cellulitis: (4) Atrial fibrillation: (5) Peripheral arterial disease: (6) Venous stasis: (7) Diabetes: (8) Obesity: (9) Obstructive sleep apnea: (10) Chronic ischemia posterior cerebral artery stroke: Plan Acute encephalopathy ? Likely secondary to sepsis from cellulitis ? With underlying CVA ? Neurochecks ? Aspiration precautions ? Monitor mentation closely Right lower extremity cellulitis ? Does endorse that she has cats and there is a possibility that the cats have licked her wounds ? Does have a history of type 2 diabetes mellitus ? Continue vancomycin ? meropenem ? Follow blood cultures Sepsis secondary to cellulitis Sepsis features met given tachycardia, leukocytosis, elevated Pro-Rufino, CRP, acute encephalopathy Bilateral lower extremity edema, with crackles on exam, likely CHF exacerbation - -4 L yesterday ? 1 dose IV Lasix 40 mg IV push ? Bnp ? Serial troponins, serial EKGs Type 2 diabetes mellitus ? Patient is unsure of how much insulin she is taking ? Moderate dose sliding scale Hypertension, patient is quite hypertensive in the emergency room ? Continue home blood pressure medications Atrial fibrillation ? Continue Eliquis ? Continue metoprolol Acute hypoxia currently on 2 L, chest x-ray showing pulm vascular congestion likely CHF exacerbation, Lasix as above Full code ? Eliquis for DVT prophylaxis Attestations 2 Medical Necessity Statement*: Patient requires hospitalization due to right lower extremity cellulitis Diagnoses Acute encephalopathy G93.40 Sepsis A41.9 Lower extremity cellulitis L03.119 Atrial fibrillation I48.91 Peripheral arterial disease I73.9 Venous stasis I87.8 Diabetes E11.9 Obesity E66.9 Obstructive sleep apnea G47.33 Chronic ischemia posterior cerebral artery stroke I69.30
--- NOTE | 2024-03-10 13:17 | XR_ITS ---
WS: [email or web address] XR lumbar spine 2-3V* [id number] REASON FOR EXAM: pain FINDINGS: Transitional vertebrae in the proximal most lumbar spine and distal most lumbar spine. First true lum bar vertebrae will be considered L1 for this discussion. Mild dextroscoliosis. Exaggeration of lumbar lordosis. The L5-S1 disc space is narrowed. The remaining disc spaces are intact and relatively well preserved. . There is mild endplate sclerosis and osteophytosis L1-L5. Moderate degenerative change in the facet joints at L4-L5 and L5-S1. 5 mm of anterolisthesis of L2 in relation to L1. XR/XR lumbar spine 2-3V* [id number] IMPRESSION: Degenerative spondylosis as above.
--- NOTE | 2024-03-10 13:17 | XR_ITS ---
WS: [email or web address] XR knee RT 1-2V [id number] REASON FOR EXAM: pain FINDINGS: No acute fracture or focal bone lesion. The medial knee joint space is intact and relatively well preserved. There is mild subchondral sclero sis and minimal osteophytosis. There is mild narrowing of the lateral knee joint space with mild subchondral sclerosis and osteophyt osis. There is moderate narrowing of the patellofemoral joint space with moderate subchondral sclerosis and osteophytosis. Moderate opposing osteophytes of the femoral condyles. XR/XR knee RT 1-2V [id number] IMPRESSION: Mild osteoarthritis in the medial and lateral knee joint compartments. Moderate osteoarthritis in the patellofemoral joint space.
--- NOTE | 2024-03-10 13:17 | XR_ITS ---
WS: [email or web address] XR knee LT 1-2V [id number] REASON FOR EXAM: pain FINDINGS: No fracture or focal bone lesion. Medial joint space is intact and well preserved. Mild subchondral sclerosis. Lateral knee joint space is intact and relatively well preserved. Small marginal osteophytosis. The patellofemoral joint space is intact and somewhat narrowed laterally. There is moderate subchondr al sclerosis and osteophytosis of the patella. Moderate opposing lateral femoral condyle osteophyte. XR/XR knee LT 1-2V [id number] IMPRESSION: Mild osteoarthritis of the left knee.
[2024-03-10 17:25] LABS: Glucose Point of Care 323 mg/dL (70-110)
[2024-03-10 20:29] LABS: Glucose Point of Care 361 mg/dL (70-110)
[2024-03-10] MEDS: pantoprazole 40 mg SDV IVP (20:47)
[2024-03-10] MEDS: vancomycin 1,250 MG/250 ML PIGGYBACK 250 MG IV (21:44)
[2024-03-11] VITALS (8 sets, daily range): BP systolic 125–140; BP diastolic 76–89; PULSE 95–107; RESP 16–18; TEMP 36.3–37.7; O2SAT 91–98
--- NOTE | 2024-03-11 03:41 | PC.NURSE ---
patient refusing meds from multiple staff, not wantimng
--- NOTE | 2024-03-11 03:44 | PC.NURSE ---
Addendum entered by Bianka Cast LPN 03/11/24 03:46: patient is AMS, only able to state name and that she is in the hospital. bed alarm in place at this time Original Note: patient refusing meropenen iv push scheduled for 0200. this nurse as well as margret hernández RN attempted to redirect patient multiple times each attempt was unsuccessful. patient iv is patent and intact.
[2024-03-11 06:16] LABS: Basophils % 0.3 %; Eosinophils # 0.1 10^3/uL (0.0-0.8); Eosinophils % 0.3 %; Lymphocytes # 0.9 10^3/uL (0.8-4.8); Lymphocytes % 6.1 %; Mean Corpuscular HGB Conc 31.5 g/dL (30-55); Mean Corpuscular Hemoglobin 28.4 pg (27-33); Mean Corpuscular Volume 90.3 fl (85-98); Mean Platelet Volume 11.7 fL (7.4-10.4); Monocytes # 1.1 10^3/uL (0.2-0.9); Monocytes % 7.1 %; Neutrophils # 13.09 10^3/uL (1.8-7.7); Neutrophils % 85.5 %; Nucleated Red Blood Cells % 0 %; Platelet Count 160 10^3/cmm (157-399); Red Blood Count 5.98 10^6/uL (3.85-5.65); Red Cell Distribution Width 14.9 % (12.1-15.1)
[2024-03-11 06:27] LABS: Glucose Point of Care 274 mg/dL (70-110)
[2024-03-11 06:37] LABS: Alanine Aminotransferase 14 U/L (0-33); Albumin Level 3.5 g/dL (3.5-5.2); Alkaline Phosphatase 73 U/L (35-105); Anion Gap 21.2 (5-19); Aspartate Amino Transferase 10 U/L (0-32); Blood Urea Nitrogen 39 mg/dL (8-23); Calcium 8.8 mg/dL (8.5-10.5); Carbon Dioxide 25 mmol/L (22-29); Chloride 96 mmol/L (98-107); Creatinine Clr Calc Pharmacy 38.3457; Globulin 3.6 g/dL (1.3-4.6); Glucose 307 mg/dL (65-115); Magnesium 2.3 mg/dL (1.7-2.3); Osmolality Calculated 307 mOsm/kg (285-295); Phosphorus 4.5 mg/dL (2.5-4.5); Potassium 4.2 mmol/L (3.5-5.1); Sodium 138 mmol/L (136-145); Total Protein 7.1 g/dL (6.6-8.7)
[2024-03-11] MEDS: lisinopril 10 mg Tablet 40 MG PO (08:45)
[2024-03-11] MEDS: insulin lispro 100 unit/1 mL SUBCUT ×4 (08:45→21:51)
[2024-03-11] MEDS: aspirin 81 mg EC Tablet PO (08:46)
[2024-03-11] MEDS: buPROPion XL (24 HR) 150 mg Tablet PO (08:46)
[2024-03-11] MEDS: apixaban 5 mg Tablet PO ×2 (08:46→17:29)
[2024-03-11] MEDS: metoprolol tartrate 25 mg Tablet 12.5 MG PO ×2 (08:46→17:29)
[2024-03-11] MEDS: sodium chloride 0.9% 1,000 ML 75 ML IV ×2 (08:48→20:20)
[2024-03-11] MEDS: insulin glargine 100 units/1 mL 10 UNIT SUBCUT (09:24)
[2024-03-11] MEDS: nystatin powder 15 gm Btl 1 APPLIC TOPICAL ×2 (09:25→17:32)
--- NOTE | 2024-03-11 09:37 | PC.SOCIAL ---
IMM Update pg 2 of IMM Updated and reviewed w/ patient and life partner, Krishna. Copy provided and copy dated, initialed and placed in chart.
[2024-03-11] MEDS: meropenem 500 mg SDV IVP ×2 (11:00→17:29)
[2024-03-11 11:14] LABS: Glucose Point of Care 422 mg/dL (70-110)
--- NOTE | 2024-03-11 13:51 | P.PN_ITS ---
Subjective 2 Subjective: Patient was seen this morning, sitting up in a chair, she is alert to person, to place, not to time she follows all commands, denies any fevers, chills, no cough Vitals/I&O/Wt Last Vital Signs Temp 97.4 F L 03/11/24 11:37 Pulse 95 03/11/24 11:37 Resp 16 03/11/24 11:37 BP 129/78 03/11/24 11:37 Pulse Ox 91 03/11/24 11:37 O2 Del Method Room Air 03/11/24 11:37 O2 Flow Rate 2 03/11/24 07:29 03/10/24 03/11/24 03/11/24 22:59 06:59 14:59 Intake Total 768 / 1840 300 / 2140 360 / 360 Output Total 3050 / 4600 300 / 4900 Balance -2282 / -2760 0 / -2760 360 / 360 Weight last 48 hrs Weight 134.49 kg Weight 134.49 kg Weight 137.983 kg Weight 138.799 kg Weight 127.006 kg Physical Exam 2 Const: COMMON NORMALS: no acute distress and patient oriented x3 Resp: COMMON NORMALS: normal respiratory effort, No retractions, No use of accessory muscles and clear to auscultation bilaterally AUSCULTATION: clear to auscultation bilaterally Cardio: COMMON NORMALS: regular rate, regular rhythm, S1 normal heart sound present and S2 normal heart sound present RATE: regular rate RHYTHM: r egular rhythm HEART SOUNDS: S1 normal heart sound present and S2 normal heart sound present GI: COMMON NORMALS: Normal to inspection, nondistended, normoactive bowel sounds present and non-tender Back/Pelvis: OTHER: Right lower extremity, erythema, significantly improving Extremity: COMMON NORMALS: no pedal edema Neuro: COMMON NORMALS: patient oriented x3 Psych: COMMON NORMALS: mental status grossly normal Urinary Catheter Management: Goodman: Cath Placed During This Visit: yes Reason for Continuing Indwelling Catheter: Acute Urinary Retention or Obstruction Urinary Catheter Date of Insertion: 03/09/24 Urinary Catheter Time of Insertion: 22:00 Data 03/11/24 05:57 03/11/24 05:57 Micro: Microbiology 03/09/24 16:59 Blood Culture - Preliminary Blood NEGATIVE TO DATE 03/09/24 17:08 Blood Culture - Preliminary Blood NEGATIVE TO DATE A&P Assessment and plan (1) Acute encephalopathy: (2) Sepsis: (3) Lower extremity cellulitis: (4) Atrial fibrillation: (5) Peripheral arterial disease: (6) Venous stasis: (7) Diabetes: (8) Obesity: (9) Obstructive sleep apnea: (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 Likely secondary to sepsis from cellulitis ? With underlying CVA ? Neurochecks ? Aspiration precautions ? Monitor mentation closely Right lower extremity cellulitis ? Does endorse that she has cats and there is a possibility that the cats have licked her wounds ? Does have a history of type 2 diabetes mellitus ? Continue vancomycin ? meropenem ? Follow blood cultures Sepsis secondary to cellulitis Sepsis features met given tachycardia, leukocytosis, elevated Pro-Rufino, CRP, acute encephalopathy Bilateral lower extremity edema, with crackles on exam, likely CHF exacerbation - -4 L yesterday ? Hold Lasix ? Bnp ? Serial troponins, serial EKGs Type 2 diabetes mellitus ? Patient is unsure of how much insulin she is taking ? Moderate dose sliding scale Hypertension, patient is quite hypertensive in the emergency room ? Continue home blood pressure medications Atrial fibrillation ? Continue Eliquis ? Continue metoprolol Acute hypoxia currently on 2 L, chest x-ray showing pulm vascular congestion likely CHF exacerbation, as above Polycythemia, potentially related to nocturnal hypoxia will need to follow-up with hematology oncology as outpatient Full code ? Eliquis for DVT prophylaxis Today has developed ESPERANZA creatinine 1.9, start gentle IV hydration repeat BMP in the afternoon, Attestations 2 Medical Necessity Statement*: Patient requires hospitalization for cellulitis, CHF exacerbation, ESPERANZA Diagnoses Acute encephalopathy G93.40 Sepsis A41.9 Lower extremity cellulitis L03.119 Atrial fibrillation I48.91 Peripheral arterial disease I73.9 Venous stasis I87.8 Diabetes E11.9 Obesity E66.9 Obstructive sleep apnea G47.33 Chronic ischemia posterior cerebral artery stroke I69.30
[2024-03-11 14:28] LABS: Anion Gap 20.6 (5-19); Blood Urea Nitrogen 46 mg/dL (8-23); Calcium 8.7 mg/dL (8.5-10.5); Carbon Dioxide 24 mmol/L (22-29); Chloride 93 mmol/L (98-107); Creatinine Clr Calc Pharmacy 34.6938; Glucose 490 mg/dL (65-115); Osmolality Calculated 310 mOsm/kg (285-295); Potassium 4.6 mmol/L (3.5-5.1); Sodium 133 mmol/L (136-145)
[2024-03-11] MEDS: acetaminophen 325 mg Tablet 650 MG PO (14:33)
[2024-03-11] MEDS: insulin lispro 100 unit/1 mL 10 UNIT SUBCUT (15:38)
[2024-03-11 16:34] LABS: Glucose Point of Care 379 mg/dL (70-110)
[2024-03-11 21:28] LABS: Glucose Point of Care 301 mg/dL (70-110)
[2024-03-11] MEDS: pantoprazole 40 mg SDV IVP (21:51)
[2024-03-11] MEDS: vancomycin 1,250 MG/250 ML PIGGYBACK 250 MG IV (21:55)
[2024-03-12] VITALS (11 sets, daily range): BP systolic 124–174; BP diastolic 69–100; PULSE 66–108; RESP 16–18; TEMP 36.6–37.4; O2SAT 90–96
[2024-03-12] MEDS: meropenem 500 mg SDV IVP ×3 (02:16→21:27)
[2024-03-12 03:44] LABS: Basophils % 0.4 %; Eosinophils # 0.3 10^3/uL (0.0-0.8); Eosinophils % 3.4 %; Lymphocytes # 1.3 10^3/uL (0.8-4.8); Lymphocytes % 12.9 %; Mean Corpuscular HGB Conc 31.5 g/dL (30-55); Mean Corpuscular Hemoglobin 28.7 pg (27-33); Mean Corpuscular Volume 91.2 fl (85-98); Mean Platelet Volume 11.9 fL (7.4-10.4); Monocytes % 10.2 %; Neutrophils # 6.99 10^3/uL (1.8-7.7); Neutrophils % 72.5 %; Nucleated Red Blood Cells % 0 %; Platelet Count 162 10^3/cmm (157-399); Red Blood Count 5.81 10^6/uL (3.85-5.65); Red Cell Distribution Width 15.1 % (12.1-15.1); White Blood Count 9.66 10^3/uL (3.29-11.43)
[2024-03-12 04:08] LABS: C Reactive Protein 151.8 mg/L (0.0-4.9)
[2024-03-12 04:10] LABS: Alanine Aminotransferase 12 U/L (0-33); Albumin Level 3.2 g/dL (3.5-5.2); Alkaline Phosphatase 71 U/L (35-105); Anion Gap 18.5 (5-19); Aspartate Amino Transferase 10 U/L (0-32); Blood Urea Nitrogen 52 mg/dL (8-23); Calcium 8.3 mg/dL (8.5-10.5); Carbon Dioxide 23 mmol/L (22-29); Chloride 101 mmol/L (98-107); Creatinine Clr Calc Pharmacy 40.4761; Globulin 2.5 g/dL (1.3-4.6); Glucose 310 mg/dL (65-115); Magnesium 2.6 mg/dL (1.7-2.3); Osmolality Calculated 312 mOsm/kg (285-295); Phosphorus 4.3 mg/dL (2.5-4.5); Potassium 4.5 mmol/L (3.5-5.1); Sodium 138 mmol/L (136-145); Total Bilirubin 0.7 mg/dL (0.15-1.2); Total Protein 5.7 g/dL (6.6-8.7)
[2024-03-12 04:14] LABS: Procalcitonin 1.26 ng/mL (0-0.5)
[2024-03-12] MEDS: sodium chloride 0.9% 1,000 ML 75 ML IV (05:49)
[2024-03-12 07:10] LABS: Glucose Point of Care 293 mg/dL (70-110)
[2024-03-12] MEDS: apixaban 5 mg Tablet PO ×2 (08:55→17:11)
[2024-03-12] MEDS: metoprolol tartrate 25 mg Tablet 12.5 MG PO ×2 (08:55→17:11)
[2024-03-12] MEDS: aspirin 81 mg EC Tablet PO (08:55)
[2024-03-12] MEDS: buPROPion XL (24 HR) 150 mg Tablet PO (08:55)
[2024-03-12] MEDS: insulin glargine 100 units/1 mL 10 UNIT SUBCUT (08:56)
[2024-03-12] MEDS: insulin lispro 100 unit/1 mL SUBCUT ×4 (08:56→21:13)
[2024-03-12] MEDS: water for injection-sterile 10 ML 240 ML ×2 (10:08→17:12)
[2024-03-12 11:32] LABS: Glucose Point of Care 372 mg/dL (70-110)
[2024-03-12] MEDS: acetaminophen 325 mg Tablet 650 MG PO (15:05)
--- NOTE | 2024-03-12 15:55 | P.PN_ITS ---
Subjective 2 Subjective: Patient was seen this morning, she is sitting up in a chair, denies any fevers, no chills, no nausea, vomiting Vitals/I&O/Wt Last Vital Signs Temp 98.5 F 03/12/24 11:47 Pulse 95 03/12/24 14:00 Resp 16 03/12/24 11:47 BP 154/99 03/12/24 11:47 Pulse Ox 91 03/12/24 11:47 O2 Del Method Room Air 03/12/24 07:30 O2 Flow Rate 2 03/11/24 07:29 03/12/24 03/12/24 03/12/24 06:59 14:59 22:59 Intake Total 961.25 / 2546.25 1215 / 1215 Output Total 650 / 1450 1999 Balance 311.25 / 1096.25 -785 / -785 Weight last 48 hrs Weight 136.701 kg Weight 134.49 kg Weight 134.49 kg Physical Exam 2 Const: COMMON NORMALS: no acute distress and patient oriented x3 Resp: COMMON NORMALS: normal respiratory effort, No retractions, No use of accessory muscles and clear to auscultation bilaterally AUSCULTATION: clear to auscultation bilaterally Cardio: COMMON NORMALS: regular rate, regular rhythm, S1 normal heart sound present and S2 normal heart sound present RATE: regular rate RHYTHM: r egular rhythm HEART SOUNDS: S1 normal heart sound present and S2 normal heart sound present GI: COMMON NORMALS: Normal to inspection, nondistended, normoactive bowel sounds present and non-tender Extremity: COMMON NORMALS: no pedal edema Neuro: COMMON NORMALS: patient oriented x3 Psych: COMMON NORMALS: mental status grossly normal Urinary Catheter Management: Goodman: Cath Placed During This Visit: yes Reason for Continuing Indwelling Catheter: Acute Urinary Retention or Obstruction Urinary Catheter Date of Insertion: 03/09/24 Urinary Catheter Time of Insertion: 22:00 Data 03/12/24 02:19 03/12/24 02:19 Micro: Microbiology 03/09/24 22:45 Urine Culture - Preliminary Urine,Clean Catch Yeast species A&P Assessment and plan (1) Acute encephalopathy: (2) Sepsis: (3) Lower extremity cellulitis: (4) Atrial fibrillation: (5) Peripheral arterial disease: (6) Venous stasis: (7) Diabetes: (8) Obesity: (9) Obstructive sleep apnea: (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 Likely secondary to sepsis from cellulitis ? With underlying CVA ? Neurochecks ? Aspiration precautions ? Monitor mentation closely Right lower extremity cellulitis ? Does endorse that she has cats and there is a possibility that the cats have licked her wounds ? Does have a history of type 2 diabetes mellitus ? Continue vancomycin ? meropenem ? Follow blood cultures ESPERANZA, creatinine 1.8, resolving Sepsis secondary to cellulitis Sepsis features met given tachycardia, leukocytosis, elevated Pro-Rufino, CRP, acute encephalopathy Bilateral lower extremity edema, with crackles on exam, likely CHF exacerbation - -4 L yesterday ? Hold Lasix ? Bnp ? Serial troponins, serial EKGs Type 2 diabetes mellitus ? Patient is unsure of how much insulin she is taking ? Moderate dose sliding scale Hypertension, patient is quite hypertensive in the emergency room ? Continue home blood pressure medications Atrial fibrillation ? Continue Eliquis ? Continue metoprolol Acute hypoxia currently on 2 L, chest x-ray showing pulm vascular congestion likely CHF exacerbation, as above Polycythemia, potentially related to nocturnal hypoxia will need to follow-up with hematology oncology as outpatient Full code ? Eliquis for DVT prophylaxis Will stop IV fluids, right lower extremity remains erythematous, tender, will continue IV antibiotics for another 24 hours white blood cell count has improved but CRP and Pro-Rufino remain elevated, urine culture?showing yeast species start oral Diflucan Attestations 2 Medical Necessity Statement*: Patient requires hospitalization for cellulitis right lower extremity Diagnoses Acute encephalopathy G93.40 Sepsis A41.9 Lower extremity cellulitis L03.119 Atrial fibrillation I48.91 Peripheral arterial disease I73.9 Venous stasis I87.8 Diabetes E11.9 Obesity E66.9 Obstructive sleep apnea G47.33 Chronic ischemia posterior cerebral artery stroke I69.30
[2024-03-12] MEDS: fluconazole 100 mg Tablet PO (16:14)
[2024-03-12 16:52] LABS: Glucose Point of Care 287 mg/dL (70-110)
[2024-03-12] MEDS: nystatin powder 15 gm Btl 1 APPLIC TOPICAL (19:00)
[2024-03-12 20:38] LABS: Glucose Point of Care 347 mg/dL (70-110)
[2024-03-12] MEDS: pantoprazole 40 mg SDV IVP (21:27)
[2024-03-12 21:33] LABS: Vancomycin Trough 11.7 ug/mL (10-15)
[2024-03-12] MEDS: vancomycin 1,250 MG/250 ML PIGGYBACK 250 MG IV (23:03)
[2024-03-13 04:46] VITALS: BP 164/81; PULSE 92; RESP 16; TEMP 37; O2SAT 98
[2024-03-13 05:18] LABS: Basophils % 0.5 %; Eosinophils # 0.4 10^3/uL (0.0-0.8); Hematocrit 53.7 % (36-47); Lymphocytes # 1.4 10^3/uL (0.8-4.8); Lymphocytes % 18.6 %; Mean Corpuscular HGB Conc 30.5 g/dL (30-55); Mean Corpuscular Hemoglobin 28.1 pg (27-33); Mean Corpuscular Volume 92.1 fl (85-98); Mean Platelet Volume 11.5 fL (7.4-10.4); Monocytes # 0.7 10^3/uL (0.2-0.9); Monocytes % 8.8 %; Neutrophils % 66.2 %; Nucleated Red Blood Cells % 0 %; Platelet Count 162 10^3/cmm (157-399); Red Blood Count 5.83 10^6/uL (3.85-5.65); Red Cell Distribution Width 14.7 % (12.1-15.1); White Blood Count 7.41 10^3/uL (3.29-11.43)
[2024-03-13] MEDS: meropenem 500 mg SDV IVP (05:37)
[2024-03-13 05:57] LABS: NT Pro B Type Natriuretic Pept 669 pg/mL (0-125); Procalcitonin 0.71 ng/mL (0-0.5)
[2024-03-13 06:13] LABS: Alanine Aminotransferase 12 U/L (0-33); Albumin Level 3.2 g/dL (3.5-5.2); Alkaline Phosphatase 64 U/L (35-105); Anion Gap 19.7 (5-19); Blood Urea Nitrogen 44 mg/dL (8-23); C Reactive Protein 62.2 mg/L (0.0-4.9); Calcium 8.2 mg/dL (8.5-10.5); Carbon Dioxide 21 mmol/L (22-29); Chloride 105 mmol/L (98-107); Creatinine Clr Calc Pharmacy 56.5899; Globulin 2.6 g/dL (1.3-4.6); Glucose 209 mg/dL (65-115); Osmolality Calculated 309 mOsm/kg (285-295); Potassium 4.7 mmol/L (3.5-5.1); Sodium 141 mmol/L (136-145); Total Bilirubin 0.7 mg/dL (0.15-1.2); Total Protein 5.8 g/dL (6.6-8.7)
[2024-03-13 06:14] LABS: Aspartate Amino Transferase 14 U/L (0-32)
[2024-03-13 06:35] LABS: Glucose Point of Care 175 mg/dL (70-110)
[2024-03-13 07:34] VITALS: BP 139/79; PULSE 102; RESP 17; TEMP 36.3; O2SAT 96
[2024-03-13] MEDS: apixaban 5 mg Tablet PO (07:55)
[2024-03-13] MEDS: insulin glargine 100 units/1 mL 10 UNIT SUBCUT (07:55)
[2024-03-13] MEDS: fluconazole 100 mg Tablet PO (07:55)
[2024-03-13] MEDS: insulin lispro 100 unit/1 mL SUBCUT ×2 (07:55→12:57)
[2024-03-13] MEDS: buPROPion XL (24 HR) 150 mg Tablet PO (07:55)
[2024-03-13] MEDS: aspirin 81 mg EC Tablet PO (07:55)
[2024-03-13] MEDS: metoprolol tartrate 25 mg Tablet 12.5 MG PO (07:56)
[2024-03-13] MEDS: nystatin powder 15 gm Btl 1 APPLIC TOPICAL (07:57)
[2024-03-13 11:05] LABS: Glucose Point of Care 264 mg/dL (70-110)
[2024-03-13 11:36] VITALS: BP 152/96; PULSE 79; RESP 16; TEMP 36.8; O2SAT 97
--- NOTE | 2024-03-13 12:07 | PM.DCS ---
Discharge Providers Date of Admission: 03/09/24 18:16 Date of Discharge: March 13, 2024 Attending Provider at Admission: Abdelrahman Stephen MD Attending Provider at Discharge: Abdelrahman Stephen MD Primary Care Provider: Ajay Robertson DO Diagnoses at Discharge Discharge Diagnosis (1) Acute encephalopathy: Status: Acute (2) Sepsis: Status: Acute (3) Lower extremity cellulitis: Status: Acute (4) Atrial fibrillation: Status: Acute (5) Peripheral arterial disease: Status: Acute (6) Venous stasis: Status: Acute (7) Diabetes: Status: Acute (8) Obesity: Status: Acute (9) Obstructive sleep apnea: Status: Acute (10) Chronic ischemia posterior cerebral artery stroke: Status: Acute Permanent problem details: This patient has a 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 She has chronic atrial fibrillation, morbid obesity, poorly controlled diabetes with poor compliance on diet, hypertension that is under poor control and recurrent episodes that have brought her to the emergency department with transient neurologic symptoms and no residual. She has chronic findings of right homonymous hemianopsia from her previous left posterior cerebral artery stroke. Her is heavily invested in her care and motivated to help her with compliance on diet and exercise. She was recently started on Zetia. Her blood pressure and lipids will be managed by Dr. Wilson. I have nothing further to add. Her is very concerned that she is not keeping up with her fluids and I advise she should drink water at an appropriate amount. Getting her off of hydrochlorothiazide will probably help. I have nothing further to add. Reason for Visit Reason for Visit: generalized edema Hospital Course Hospital Course Kay Munroe is a 74 year old female with a past medical history of atrial fibrillation on Eliquis therapy, history of CVA, h history of peripheral vascular disease diabetic polyneuropathy, hypertension, insulin-dependent type 2 diabetes mellitus, hyperlipidemia, morbid obesity, who presents to [facility] due to right lower extremity swelling. Currently patient is alert to person, not to place, not to time, she does not know her address, she knows her name but does not know her birthdate, is encephalopathic at times. The history I was able to get from her is that she is here in the hospital because she has been experiencing right lower extremity pain and swelling and tenderness, she does report feeling feverish, she does report having cats at home and the potential that the cats have licked her wounds. She is hypertensive, tachycardic, requiring on 4 L, temperature 99, I was unable to get a straightforward answer from her if she uses oxygen at home, has diffuse crackles on exam, 2+ pitting edema bilateral lower extremities, she does not know what blood thinner she is on, she is not sure if she took her medications this morning, she is not sure how much insulin she takes, she tells me that Rodrick takes care of her medications Patient presented to [facility] for concerns for right lower extremity cellulitis, received broad-spectrum antibiotic therapy, overall clinically improved, discharged on doxycycline therapy, follow-up with primary care provider as outpatient Patient also had fluid overload during her hospitalization, required IV diuresis, overall clinically proved, to room air Patient's hospitalization was complicated with ESPERANZA, improving with IV fluids, creatinine discharge 1.3 Will discharge with close follow-up with primary care provider as outpatient For yeast UTI, discharged on Diflucan Physical Exam Const: COMMON NORMALS: no acute distress ORIENTATION/CONSCIOUSNESS: Yes awake, Yes oriented to person and Yes oriented to place; not oriented to time Resp: COMMON NORMALS: normal respiratory effort, No retractions, No use of accessory muscles and clear to auscultation bilaterally AUSCULTATION: clear to auscultation bilaterally Cardio: COMMON NORMALS: regular rate, regular rhythm, S1 normal heart sound present and S2 normal heart sound present RATE: regular rate RHYTHM: regular rhythm HEART SOUNDS: S1 normal heart sound present and S2 normal heart sound present GI: COMMON NORMALS: Normal to inspection, nondistended, normoactive bowel sounds present and non-tender Extremity: COMMON NORMALS: no pedal edema Neuro: SENSORIUM/ORIENTATION: Yes oriented to person, Yes oriented to place and No oriented to time Psych: COMMON NORMALS: mental status grossly normal Urinary Catheter Management: Goodman: Cath Placed During This Visit: yes Reason for Continuing Indwelling Catheter: Acute Urinary Retention or Obstruction Urinary Catheter Date of Insertion: 03/09/24 Urinary Catheter Time of Insertion: 22:00 Discharge Data Studies Completed and Pending Completed Studies During Hospitalization Category Date Time Status CT lower leg RT wo con* [id number] Stat Cat Scan 03/09/24 18:05 Completed XR chest 1V portable [id number] Stat Exams 03/09/24 16:17 Completed XR knee LT 1-2V [id number] Routine Exams 03/10/24 13:17 Completed XR knee RT 1-2V 16953 Routine Exams 03/10/24 13:17 Completed XR lumbar spine 2-3V* [id number] Routine Exams 03/10/24 13:17 [place] [id number] Stat Ultrasound 03/09/24 18:05 Completed US arterial duplex lower extremity bilat [CV arterial Ultrasound 03/09/24 18:13 [place] [id number]] Stat Pending at discharge Category Date Time Status Blood Culture Stat Lab 03/09/24 16:59 Results C Reactive Protein AM LABS Lab 03/14/24 04:00 Ordered C Reactive Protein AM LABS Lab 03/14/24 04:00 Ordered C Reactive Protein AM LABS Lab 03/15/24 04:00 Ordered Complete Blood Count w/Auto AM LABS Lab 03/14/24 04:00 Ordered Complete Blood Count w/Auto AM LABS Lab 03/15/24 04:00 Ordered Comprehensive Metabolic Panel AM LABS Lab 03/14/24 04:00 Ordered Comprehensive Metabolic Panel AM LABS Lab 03/15/24 04:00 Ordered NT Pro B Type Natriuretic Pept QAM Lab 03/14/24 06:00 Ordered NT Pro B Type Natriuretic Pept QAM Lab 03/15/24 06:00 Ordered Procalcitonin AM LABS Lab 03/14/24 04:00 Ordered Procalcitonin AM LABS Lab 03/14/24 04:00 Ordered Procalcitonin AM LABS Lab 03/15/24 04:00 Ordered Urine Culture Stat Lab 03/09/24 22:45 Results Radiology Impressions Chest X-Ray 03/09/24 16:17 IMPRESSION: Central vascular prominence without pulmonary edema. Minimal bibasilar atelectasis. Lower Extremity CT 03/09/24 18:05 IMPRESSION: 1. No acute fractures or subluxations. Degenerative changes of the knee and ankle. Chronic appearing nondisplaced avulsion fracture of the medial malleolus. 2. Moderate soft tissue swelling of the lower extremity. Venous Duplex 03/09/24 18:05 IMPRESSION: No evidence of deep vein thrombosis. Duplex Scan Lower Extremity Artery 03/09/24 18:13 IMPRESSION: Limited examination due to patient's body habitus and significant edema of the extremities. No stenosis or occlusion. Knee X-Ray 03/10/24 13:17 IMPRESSION: Mild osteoarthritis in the medial and lateral knee joint compartments. Moderate osteoarthritis in the patellofemoral joint space. Lumbar Spine X-Ray 03/10/24 13:17 IMPRESSION: Degenerative spondylosis as above. Laboratory Results WBC 7.41 10^3/uL (3.29-11.43) 03/13/24 04:38 RBC 5.83 10^6/uL (3.85-5.65) H 03/13/24 04:38 Hgb 16.40 g/dL (11.27-16.99) 03/13/24 04:38 Hct 53.7 % (36-47) H 03/13/24 04:38 MCV 92.1 fl (85-98) 03/13/24 04:38 MCH 28.1 pg (27-33) 03/13/24 04:38 MCHC 30.5 g/dL (30-55) 03/13/24 04:38 RDW 14.7 % (12.1-15.1) 03/13/24 04:38 Plt Count 162 10^3/cmm (157-399) 03/13/24 04:38 MPV 11.5 fL (7.4-10.4) H 03/13/24 04:38 Neut % (Auto) 66.2 % 03/13/24 04:38 Lymph % (Auto) 18.6 % 03/13/24 04:38 [place] % (Auto) 8.8 % 03/13/24 04:38 Eos % (Auto) 5.0 % 03/13/24 04:38 Baso % (Auto) 0.5 % 03/13/24 04:38 Neut # (Auto) 4.90 10^3/uL (1.8-7.7) 03/13/24 04:38 Lymph # (Auto) 1.4 10^3/uL (0.8-4.8) 03/13/24 04:38 [place] # (Auto) 0.7 10^3/uL (0.2-0.9) 03/13/24 04:38 Eos # (Auto) 0.4 10^3/uL (0.0-0.8) 03/13/24 04:38 Baso # (Auto) 0.0 10^3/uL (0.0-0.1) 03/13/24 04:38 Nucleated RBC % (auto) 0 % 03/13/24 04:38 Nucleated RBCs # 0.0 /100WBC 03/13/24 04:38 ESR 11 mm/hr (0-15) 03/09/24 17:08 Specimen Type Arterial 03/09/24 18:38 Sample Site Radial, right 03/09/24 18:38 ABG pH 7.43 (7.35-7.45) 03/09/24 18:38 ABG pCO2 36.6 mmHg (35-45) 03/09/24 18:38 ABG pO2 63.8 mmHg (80.0-100.0) L 03/09/24 18:38 ABG PO2/FiO2 Ratio 303 03/09/24 18:38 ABG HCO3 24.4 mmol/L (22-26) 03/09/24 18:38 ABG Base Excess 0.5 mmol/L (-2.0-2.0) 03/09/24 18:38 Prakash Test Pos 03/09/24 18:38 Hematocrit 52.8 % (37-47) H 03/09/24 18:38 O2 Delivery Device Room air 03/09/24 18:38 FiO2 21.0 % 03/09/24 18:38 Tie Up Worker ID Kia 03/09/24 18:38 Sodium 141 mmol/L (136-145) 03/13/24 04:38 Potassium 4.7 mmol/L (3.5-5.1) 03/13/24 04:38 Chloride 105 mmol/L (98-107) 03/13/24 04:38 Carbon Dioxide 21 mmol/L (22-29) L 03/13/24 04:38 Anion Gap 19.7 (5-19) H 03/13/24 04:38 BUN 44 mg/dL (8-23) H 03/13/24 04:38 Creatinine 1.3 mg/dL (0.5-0.9) H 03/13/24 04:38 GFR Calculation Not Reportable 03/13/24 04:38 Glucose 209 mg/dL (65-115) H 03/13/24 04:38 POC Glucose 264 mg/dL (70-110) H 03/13/24 11:03 Estimat Average Glucose 177 03/09/24 21:20 Hemoglobin A1c 7.8 % (4.0-6.0) H 03/09/24 21:20 Calculated Osmolality 309 mOsm/kg (285-295) H 03/13/24 04:38 Lactic Acid 2.1 mmol/L (0.5-2.2) 03/09/24 16:59 Lactic Acid (Sepsis) 3.5 mmol/L (0.5-2.2) H 03/09/24 21:20 Calcium 8.2 mg/dL (8.5-10.5) L 03/13/24 04:38 Phosphorus 4.3 mg/dL (2.5-4.5) 03/12/24 02:19 Magnesium 2.6 mg/dL (1.7-2.3) H 03/12/24 02:19 Total Bilirubin 0.7 mg/dL (0.15-1.2) 03/13/24 04:38 AST 14 U/L (0-32) 03/13/24 04:38 ALT 12 U/L (0-33) 03/13/24 04:38 Alkaline Phosphatase 64 U/L (35-105) 03/13/24 04:38 Troponin T Baseline 18 ng/L (0-10) H 03/09/24 16:59 Troponin T 120 Minute 20.90 ng/L (0-10) H 03/09/24 21:20 Delta Troponin T 2.90 ABS# (0-10) 03/09/24 21:20 Troponin T Hi Sens 6Hr 26.79 ng/L (0-10) H 03/10/24 00:23 Troponin T Hi Sens 6Hr Delta 8.79 ng/L (0-12) 03/10/24 00:23 C-Reactive Protein 62.2 mg/L (0.0-4.9) H 03/13/24 04:38 NT-Pro-B Natriuret Pep 669 pg/mL (0-125) H 03/13/24 04:38 Total Protein 5.8 g/dL (6.6-8.7) L 03/13/24 04:38 Albumin 3.2 g/dL (3.5-5.2) L 03/13/24 04:38 Globulin 2.6 g/dL (1.3-4.6) 03/13/24 04:38 Triglycerides 133 mg/dL (0-150) 03/09/24 21:20 Cholesterol 162 mg/dL (0-200) 03/09/24 21:20 LDL Cholesterol, Calc 76 mg/dL (50-129) 03/09/24 21:20 HDL Cholesterol 59 mg/dL (60-100) L 03/09/24 21:20 LDL/HDL Ratio 1.29 RATIO (0.00-3.22) 03/09/24 21:20 Cholesterol/HDL Ratio 2.75 mg/dL (0.0-4.40) 03/09/24 21:20 Procalcitonin 0.71 ng/mL (0-0.5) H 03/13/24 04:38 TSH 1.47 uIU/mL (0.27-4.20) 03/09/24 21:20 Urine Color Yellow (Yellow) 03/09/24 22:45 Urine Appearance Cloudy (CLEAR) A 03/09/24 22:45 Urine pH 5 (5-7) 03/09/24 22:45 Ur Specific [place] 1.010 (1.005-1.030) 03/09/24 22:45 Urine Protein 1+ (Negative) H 03/09/24 22:45 Urine Glucose (UA) 4+ (Normal) H 03/09/24 22:45 Urine Ketones 1+ (Negative) H 03/09/24 22:45 Urine Blood 3+ (Negative) H 03/09/24 22:45 Urine Nitrate Negative (Negative) 03/09/24 22:45 Urine Bilirubin Neg (Negative) 03/09/24 22:45 Urine Urobilinogen Neg mg/dL (Negative) 03/09/24 22:45 Ur Leukocyte Esterase 2+ (Negative) H 03/09/24 22:45 Urine RBC 10-15 /hpf (0-2) H 03/09/24 22:45 Urine WBC Too numerous to cnt /hpf (0-5) H 03/09/24 22:45 Ur Squamous Epith Cells None /hpf (0-5) 03/09/24 22:45 Amorphous Sediment Not Reportable 03/09/24 22:45 Urine Bacteria 2+ /hpf (NONE) H 03/09/24 22:45 Urine Mucus 1+ /hpf 03/09/24 22:45 Urine Yeast 2+ /hpf H 03/09/24 22:45 Vancomycin Trough 11.7 ug/mL (10-15) 03/12/24 21:06 Vitals Last Vital Signs Temp 98.3 F 03/13/24 11:36 Pulse 79 03/13/24 11:36 Resp 16 03/13/24 11:36 BP 152/96 03/13/24 11:36 Pulse Ox 97 03/13/24 11:36 O2 Del Method Room Air 03/12/24 19:51 O2 Flow Rate 2 03/11/24 07:29 Discharge Plan Discharge Patient Disposition: Home Condition: Stable Prescriptions: New insulin aspart U-100 [Novolog FlexPen U-100 Insulin] 100 unit/mL (3 mL) insulin pen See Rx Instructions .ROUTE .COMPLEX Qty: 15 0RF Rx Instructions: inject subcut, tid, after meals, based on sliding scale fluconazole 100 mg Tablet 100 mg PO DAILY 7 Days Qty: 7 0RF doxycycline hyclate 100 mg tablet 100 mg PO BID 7 Days Qty: 14 0RF Continued cyclobenzaprine 5 mg tablet 5 mg PO BID PRN (Reason: Muscle Spasm) Eliquis 5 mg tablet 5 mg PO BID ezetimibe [Zetia] 10 mg tablet 10 mg PO DAILY loratadine [Claritin] 10 mg tablet 10 mg PO DAILY PRN (Reason: ALLERGIES) oxybutynin chloride 15 mg tablet extended release 24hr 15 mg PO DAILY metoprolol tartrate 25 mg tablet 12.5 mg PO BID Jardiance 25 mg tablet 25 mg PO QAM omjixcug-qwdbmwq-poli-lutein Tablet 1 tab PO DAILY cholecalciferol (vitamin D3) 125 mcg (5,000 unit) capsule 125 mcg PO DAILY triamcinolone acetonide 0.1 % ointment 1 applic topical BID PRN (Reason: Skin Irritation) Rx Instructions: to lower legs no more than 2 wks/mo (DME) cpap See Rx Instructions .Route .MEDSUPPLY Qty: 1 0RF Rx Instructions: As directed Aspir-81 81 mg Tablet,Delayed Release (Dr/Ec) 81 mg PO DAILY lisinopril 40 mg Tablet 40 mg PO DAILY Changed insulin glargine [Lantus Solostar U-100 Insulin] 100 unit/mL (3 mL) insulin pen 15 unit SUBCUT DAILY Qty: 15 0RF Held bupropion HCl 75 mg tablet 75 mg PO BID Qty: 60 5RF Hold Instructions: Resume on 03/14/24. Discontinued Novolin N NPH U-100 Insulin 100 unit/mL suspension 38 unit SUBCUT TID PRN (Reason: Hyperglycemia) diltiazem HCl 120 mg capsule,extended release 12 hr 240 mg PO BID metoclopramide HCl 5 mg tablet See Rx Instructions .ROUTE .COMPLEX Qty: 90 11RF Dose Instruction: TAKE ONE TABLET BY MOUTH THREE TIMES DAILY FOR EATING Rx Instructions: TAKE ONE TABLET BY MOUTH THREE TIMES DAILY FOR EATING Discharge Orders: Discharge Order (Routine); Ordered 03/13/24 Ordered By: Abdelrahman Stephen Referrals: Ajay Robertson, [Primary Care Provider] - 4-7 days (We have notified your physician's clinic of the need for a follow-up appointment to be scheduled. If you have not heard from them within the next 2 business days, please call them directly. ) Discharge Diet: Cardiac Discharge Activity: Resume usual activity Patient Instructions: Opioid Safety Activity Restrictions/Additional Instructions: -Please monitor your blood sugars closely -Monitor your blood sugars 3 times daily as after meals -Please record your blood sugars, and a blood sugar log -For your NovoLog -Please inject blood sugar after meals based on sliding scale provided -Do not inject insulin if you do not eat as hypoglycemia kills -This is a NovoLog sliding scale -Insulin sliding ?fingerstick? Insulin ?141-180?0 units/sq 181-220?2 units/sq ?221-260?4 units/sq ?261-300 6 units/sq ?301-350?8 units/sq ?351-400 10 units/sq ?401-450?12 units/sq >450? 14units/sq -If your blood sugar is greater than 500 go to the emergency room -If your blood sugar is less than 60 or at anytime you feel lightheaded or dizzy or diaphoretic or have chest palpitations check your blood sugar, and eat a hard candy or drink orange juice and go immediately to the emergency room -Remember hypoglycemia kills, so if his blood sugar is less than 60 we have to increase it by taking in a sugary meal such as a hard candy or orange juice and go to the emergency room -If you have any questions please call us where here to help Discharge Attestations Time Spent in Discharge Care*: greater than 30 min Quality Metrics Clinical Quality Measures [ No reported AMI, CVA or VTE this stay] Coding Level of Care Code 98689 Total time (in minutes) for Discharge: 45 Diagnoses Acute encephalopathy G93.40 Sepsis A41.9 Lower extremity cellulitis L03.119 Atrial fibrillation I48.91 Peripheral arterial disease I73.9 Venous stasis I87.8 Diabetes E11.9 Obesity E66.9 Obstructive sleep apnea G47.33 Chronic ischemia posterior cerebral artery stroke I69.30
[2024-03-13] MEDS: lisinopril 20 mg Tablet 40 MG PO (12:57)
[2024-03-13 13:19] VITALS: BP 152/96; PULSE 79; RESP 16; TEMP 36.8; O2SAT 97
== END 2024-03-13 13:07 | disposition home or self-care (01) | DRG 872 ==
LOC: ER 17:45 → MEDSURG 18:17
PROVIDERS: Admitting Provider Family Medicine; Emergency Provider Emergency Medicine; PCP Family Medicine; Visit Provider Family Medicine
DX: A41.9 Sepsis, unspecified organism (principal); G93.40 Encephalopathy, unspecified; L03.115 Cellulitis of right lower limb; I48.20 Chronic atrial fibrillation, unspecified; N17.9 Acute kidney failure, unspecified; B37.49 Other urogenital candidiasis; I73.9 Peripheral vascular disease, unspecified; I87.8 Other specified disorders of veins; E11.65 Type 2 diabetes mellitus with hyperglycemia; E11.42 Type 2 diabetes mellitus with diabetic polyneuropathy; Z79.4 Long term (current) use of insulin; Z79.84 Long term (current) use of oral hypoglycemic drugs; E66.01 Morbid (severe) obesity due to excess calories; G47.33 Obstructive sleep apnea (adult) (pediatric); I10 Essential (primary) hypertension; Z79.01 Long term (current) use of anticoagulants; Z79.82 Long term (current) use of aspirin; Z86.718 Personal history of other venous thrombosis and embolism; D75.1 Secondary polycythemia; R60.0 Localized edema; R09.02 Hypoxemia; E87.70 Fluid overload, unspecified
CPT/HCPCS: 36415; 36416; 36600; 51702; 71045; 72100; 73560; 73700; 80048; 80053; 80061; 80202; 81001; 81003; 82803; 82962; 83036; 83605; 83735; 83880; 84100; 84145; 84443; 84484; 85025; 85651; 86140; 87040; 87086; 87106; 93005; 93925; 93971; 94664; 96365; 96367; 96372; 96375; 97110; 97116; 97161; 97165; 97530; 99285; C9113; J0360; J0692; J1815; J1940; J2020; J2185; J3370; J7030

== ENCOUNTER → 2024-04-05 13:57 | Outpatient (BNVA) | payer MEDICARE, SELFPAY | PROVIDERS: PCP Family Medicine; Visit Provider Orthopaedic Surgery | DX: M54.50 Low back pain, unspecified (principal); G89.29 Other chronic pain | CPT/HCPCS: 72110; 99204 ==

== ENCOUNTER → 2024-04-21 12:50 | Outpatient (BNVA) | payer MEDICARE, SELFPAY | PROVIDERS: PCP Family Medicine; Referring Provider Family Medicine; Visit Provider Nurse Practitioner Family | DX: D48.5 Neoplasm of uncertain behavior of skin (principal); Q80.0 Ichthyosis vulgaris; D23.5 Other benign neoplasm of skin of trunk; L30.4 Erythema intertrigo; L81.7 Pigmented purpuric dermatosis; I87.2 Venous insufficiency (chronic) (peripheral); L85.3 Xerosis cutis; L82.1 Other seborrheic keratosis; D18.01 Hemangioma of skin and subcutaneous tissue; Z85.820 Personal history of malignant melanoma of skin | CPT/HCPCS: 11102; 99204 ==

== ENCOUNTER → 2024-05-04 14:30 | Outpatient (BNVA) | payer MEDICARE, SELFPAY | PROVIDERS: PCP Family Medicine; Visit Provider Podiatrist Foot & Ankle Surgery | DX: I73.9 Peripheral vascular disease, unspecified (principal); L60.3 Nail dystrophy; L84 Corns and callosities; E11.42 Type 2 diabetes mellitus with diabetic polyneuropathy; Z79.4 Long term (current) use of insulin | CPT/HCPCS: 11055; 11721 ==

== ENCOUNTER → 2024-06-23 10:18 | Outpatient (BNVA) | payer MEDICARE, SELFPAY | PROVIDERS: PCP Family Medicine; Visit Provider Family Medicine | DX: I48.91 Unspecified atrial fibrillation (principal); I73.9 Peripheral vascular disease, unspecified; Z79.01 Long term (current) use of anticoagulants; E11.9 Type 2 diabetes mellitus without complications; I69.30 Unspecified sequelae of cerebral infarction; G47.33 Obstructive sleep apnea (adult) (pediatric); N39.0 Urinary tract infection, site not specified | CPT/HCPCS: 80053; 80061; 81000; 82607; 83036; 85025 ==

== ENCOUNTER → 2024-07-28 12:00 | Outpatient (BNVA) | payer OTHER, SELFPAY | PROVIDERS: PCP Family Medicine; Visit Provider Internal Medicine | DX: I25.10 Atherosclerotic heart disease of native coronary artery without angina pectoris (principal); Z79.01 Long term (current) use of anticoagulants; I48.91 Unspecified atrial fibrillation; E11.9 Type 2 diabetes mellitus without complications; Z79.4 Long term (current) use of insulin; E66.9 Obesity, unspecified; Z68.42 Body mass index [BMI] 45.0-49.9, adult; G47.33 Obstructive sleep apnea (adult) (pediatric); Z79.82 Long term (current) use of aspirin | CPT/HCPCS: 99213 ==

== ENCOUNTER 2024-08-22 17:17 | Inpatient (IN) | payer OTHER, SELFPAY ==
[2024-08-22 17:17] VITALS: BP 129/64; PULSE 71; RESP 18; TEMP 36.6; O2SAT 94
[2024-08-22 17:24] VITALS: BP 140/78; PULSE 63; RESP 23; O2SAT 96
--- NOTE | 2024-08-22 17:26 | ECG_ITS ---
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 Measurements Intervals [place] Rate: 66 P: 0 [place]: 0 QRS: 118 QRSD: 111 T: 54 QT: 424 QTc: 444 Interpretive Statements ATRIAL FIBRILLATION RIGHT AXIS DEVIATION [QRS AXIS > 100] LOW QRS VOLTAGE [QRS DEFLECTION < 0.5/1.0 mV IN LIMB/CHEST LEADS] ANTEROSEPTAL MYOCARDIAL INFARCTION , PROBABLY OLD [40+ ms Q WAVE IN V1-V4] Compared to ECG 03/10/2024 00:28:34 Right-axis deviation now present Myocardial infarct finding still present Electronically Signed On 08-22-2024 19:26:17 [employer] by Jose Sierra M.D. [email or web address]
--- NOTE | 2024-08-22 17:42 | XRR_ITS ---
PROCEDURE INFORMATION: Exam: XR Chest Exam date and time: 08/22/2024 5:45 PM Age: 74 years old Clinical indication: Other: Weakness; Additional info: Dyspnea/cough TECHNIQUE: Imaging protocol: Radiologic exam of the chest. Views: 1 view. COMPARISON: CR XR chest 1V portable [id number] 03/09/2024 4:29 PM FINDINGS: Lungs: Unremarkable. No consolidation or mass. Pleural spaces: Unremarkable. No pleural effusion. No pneumothorax. Heart/Mediastinum: Prominent cardiomegaly is noted. Bones/joints: Unremarkable. XR/XR chest 1V portable [id number] IMPRESSION: Stable cardiomegaly
--- NOTE | 2024-08-22 17:43 | ED_ITS ---
Documented by User: Brian Ordonez DO 08/24/24 09:27 HPI - Weakness 2 General: Chief complaint: Weakness Stated complaint: generalized weakness, flu like symptoms Time Seen by Provider: 08/22/24 17:32 History of Present Illness: 74-year-old female presents emergency ro om complaining of increased weakness overall. Patient has a significant complicated medical history of multiple medical problems in the past chart reviewed. Patient denies chest pain no abdominal pain. has chronic swelling in her legs legs actually decreased some she has a history of coronary artery disease diabetes as well. She is not having any pain no nausea vomiting diarrhea no dysuria urgency or frequency. states he is not able to manage her care or help her ambulate any further. Associated symptoms: Denies chest pain, chills, dysuria or fever(s) Review of Systems 2 Const: Reports: fatigue; Denies: fever(s) or chills Card: Denies: chest pain Resp: Reports: dyspnea GI: Denies: abdominal pain : Denies: dysuria, urinary frequency or urinary urgency Musc: Denies: neck pain or back pain Skin/Breast: Denies: rash PFSH ED 2 PFSH: Medical History Postmenopausal bleeding Hematuria Urinary tract infection Urgency incontinence Recurrent UTI CVA (cerebral vascular accident) Anticoagulation adequate with anticoagulant therapy Diabetes Obesity Obstructive sleep apnea Atrial fibrillation Chronic ischemia posterior cerebral artery stroke This patient has a 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 She has chronic atrial fibrillation, morbid obesity, poorly controlled diabetes with poor compliance on diet, hypertension that is under poor control and recurrent episodes that have brought her to the emergency department with transient neurologic symptoms and no residual. She has chronic findings of right homonymous hemianopsia from her previous left posterior cerebral artery stroke. Her is heavily invested in her care and motivated to help her with compliance on diet and exercise. She was recently started on Zetia. Her blood pressure and lipids will be managed by Dr. Wilson. I have nothing further to add. Her is very concerned that she is not keeping up with her fluids and I advise she should drink water at an appropriate amount. Getting her off of hydrochlorothiazide will probably help. I have nothing further to add. Surgical History Hx of tonsillectomy Hx of appendectomy Family History Father , IN HIS LATE 50'S No problems noted. Mother , AT AGE 65 Hypertension Grandmother Breast cancer maternal Sister Diabetes Hypertension Denies family history of Colon cancer Ovarian cancer Heart disease Hypercholesteremia Uterine cancer Thyroid disease Stroke Social History Smoking and tobacco/nicotine status: never used tobacco/nicotine Substance/Drug Use: unknown Physical Exam 2 Const: GENERAL APPEARANCE: cooperative ORIENTATION/CONSCIOUSNESS: Yes awake, Yes oriented to person, Yes oriented to place and Yes oriented to time HENMT: COMMON NORMALS: normocephalic, atraumatic and hearing grossly normal bilaterally HEAD & SCALP: normocephalic and atraumatic Resp: COMMON NORMALS: normal respiratory effort, No retractions, No use of accessory muscles and clear to auscultation bilaterally AUSCULTATION: clear to auscultation bilaterally Cardio: COMMON NORMALS: regular rate, regular rhythm and No murmurs present (Cardio) RATE: regular rate RHYTHM: regular rhythm GI: COMMON NORMALS: Soft to palpation and No hepatosplenomegaly present A USCULTATION: Yes normoactive bowel sounds PALPATION: Yes Soft to palpation, No Tenderness to palpation present (GI), No Guarding due to palpation present (GI) and Yes No hepatosplenomegaly present Extremity: COMMON NORMALS: normal to inspection, capillary refill normal, no clubbing, cyanosis or edema, no calf tenderness and no pedal edema Neuro: SENSORIUM/ORIENTATION: Yes oriented to person, Yes oriented to place and Yes oriented to time Skin: COMMON NORMALS: no rashes or lesions noted GENERAL SKIN EXAM: no rashes or lesions noted Course 2 Vital Signs: Vital signs: Vital Signs Temperature 97.9 F 08/24/24 07:25 Pulse Rate 89 08/24/24 09:20 Respiratory Rate 18 08/24/24 09:20 Blood Pressure 128/76 08/24/24 07:25 Pulse Oximetry 92 08/24/24 09:20 Oxygen Delivery Me thod Nasal Cannula 08/24/24 09:20 Oxygen Flow Rate 3 08/24/24 09:20 MDM - Weakness Medical Decision Making Care signed out to Dr. Carrero at change of shift. See final notes for diagnosis and disposition. Lab Data 08/23/24 06:55 08/23/24 06:55 Laboratory Results WBC 6.51 10^3/uL (3.29-11.43) 08/23/24 06:55 Corrected WBC Cancelled 08/23/24 05:00 RBC 5.51 10^6/uL (3.85-5.65) 08/23/24 06:55 Hgb 15.50 g/dL (11.27-16.99) 08/23/24 06:55 Hct 49.1 % (36-47) H 08/23/24 06:55 MCV 89.1 fl (85-98) 08/23/24 06:55 MCH 28.1 pg (27-33) 08/23/24 06:55 MCHC 31.6 g/dL (30-55) 08/23/24 06:55 RDW 14.9 % (12.1-15.1) 08/23/24 06:55 Plt Count 145 10^3/cmm (157-399) L 08/23/24 06:55 MPV 12.0 fL (7.4-10.4) H 08/23/24 06:55 Gran % Cancelled 08/23/24 05:00 Neut % (Auto) 82.1 % 08/23/24 06:55 Lymph % (Auto) 10.3 % 08/23/24 06:55 Karnes % (Auto) 6.6 % 08/23/24 06:55 Eos % (Auto) 0.2 % 08/23/24 06:55 Baso % (Auto) 0.2 % 08/23/24 06:55 Neut # (Auto) 5.35 10^3/uL (1.8-7.7) 08/23/24 06:55 Lymph # (Auto) 0.7 10^3/uL (0.8-4.8) L 08/23/24 06:55 Karnes # (Auto) 0.4 10^3/uL (0.2-0.9) 08/23/24 06:55 Eos # (Auto) 0.0 10^3/uL (0.0-0.8) 08/23/24 06:55 Baso # (Auto) 0.0 10^3/uL (0.0-0.1) 08/23/24 06:55 Absolute Gran (auto) Cancelled 08/23/24 05:00 Nucleated RBC % (auto) 0 % 08/23/24 06:55 Nucleated RBCs # 0.0 /100WBC 08/23/24 06:55 Sodium 139 mmol/L (136-145) 08/23/24 06:55 Potassium 4.4 mmol/L (3.5-5.1) 08/23/24 06:55 Chloride 103 mmol/L (98-107) 08/23/24 06:55 Carbon Dioxide 18 mmol/L (22-29) L 08/23/24 06:55 Anion Gap 22.4 (5-19) H 08/23/24 06:55 BUN 24 mg/dL (8-23) H 08/23/24 06:55 Creatinine 1.3 mg/dL (0.5-0.9) H 08/23/24 06:55 GFR Calculation Not Reportable 08/23/24 06:55 Glucose 123 mg/dL (65-115) H 08/23/24 06:55 Calculated Osmolality 293 mOsm/kg (285-295) 08/23/24 06:55 Calcium 8.1 mg/dL (8.5-10.5) L 08/23/24 06:55 Phosphorus 3.4 mg/dL (2.5-4.5) 08/23/24 06:55 Magnesium 2.0 mg/dL (1.7-2.3) 08/23/24 06:55 Total Bilirubin 0.5 mg/dL (0.15-1.2) 08/22/24 18:05 AST 33 U/L (0-32) H 08/22/24 18:05 ALT 23 U/L (0-33) 08/22/24 18:05 Alkaline Phosphatase 58 U/L (35-105) 08/22/24 18:05 C-Reactive Protein 103.1 mg/L (0.0-4.9) H 08/23/24 06:55 Total Protein 6.9 g/dL (6.6-8.7) 08/22/24 18:05 Albumin 3.4 g/dL (3.5-5.2) L 08/22/24 18:05 Globulin 3.5 g/dL (1.3-4.6) 08/22/24 18:05 Procalcitonin 0.17 ng/mL (0-0.5) 08/23/24 06:55 Procalcitonin Cancelled 08/23/24 06:55 Urine Color Yellow (Yellow) 08/22/24 20: Urine Appearance Cloudy (CLEAR) A 08/22/24 20: Urine pH 5.5 (5-7) 08/22/24 20: Ur Specific [place] 1.018 (1.005-1.030) 08/22/24 20: Urine Protein 1+ (Negative) A 08/22/24: Urine Glucose (UA) 2+ (Normal) H 08/22/24 20: Urine Ketones Negative (Negative) 08/22/24 20: Urine Blood 3+ (Negative) A 08/22/24 20: Urine Nitrate Negative (Negative) 08/22/24: Urine Bilirubin Negative (Negative) 08/22/24 20: Urine Urobilinogen 0.2 mg/dL (Negative) 08/22/24 20: Ur Leukocyte Esterase 2+ (Negative) A 08/22/24 20: Urine RBC 6-10 /hpf (0-2) 08/22/24 20: Urine WBC >100 /hpf (0-5) H 08/22/24 20:31 Ur Squamous Epith Cells 0-5 /hpf (0-5) 08/22/24 20: Amorphous Sediment Not Reportable 08/22/24 20: Urine Bacteria None seen /hpf (NONE) 08/22/24 20: Hyaline Casts 0.81 /lpf 08/22/24 20: Urine Yeast 1+ /hpf H 08/22/24 20:31 Adenovirus (PCR) Not detected (NOT DETECT) 08/22/24 17:50 C. pneumoniae DNA (PCR) Not detected (NOT DETECT) 08/22/24 17:50 Coronavirus 229E (PCR) Not detected (NOT DETECT) 08/22/24 17:50 Human Metapneumovir PCR Not detected (NOT DETECT) 08/22/24 17:50 Influenza A (H1) PCR Not detected (NOT DETECT) 08/22/24 17:50 Influ A (H1/09) PCR Not detected (NOT DETECT) 08/22/24 17:50 Influenza A (H3) PCR Not detected (NOT DETECT) 08/22/24 17:50 Influenza Type A (PCR) Not detected (NOT DETECT) 08/22/24 17:50 Influenza Type B (PCR) Not detected (NOT DETECT) 08/22/24 17:50 M. pneumoniae (PCR) Not detected (NOT DETECT) 08/22/24 17:50 Parainfluenza 1 (PCR) Not detected (NOT DETECT) 08/22/24 17:50 Parainfluenza 2 (PCR) Not detected (NOT DETECT) 08/22/24 17:50 Parainfluenza 3 (PCR) Not detected (NOT DETECT) 08/22/24 17:50 Parainfluenza 4 (PCR) Not detected (NOT DETECT) 08/22/24 17:50 RSV Type A (PCR) Not detected (NOT DETECT) 08/22/24 17:50 RSV Type B (PCR) Not detected (NOT DETECT) 08/22/24 17:50 Entero/Rhino (PCR) Not detected (NOT DETECT) 08/22/24 17:50 SARS-CoV-2 (PCR) Detected (NOT DETECT) A 08/22/24 17:50 Discharge Plan Discharge Patient Disposition: Admitted As Inpatient Admit Provider: Belkys Babin Clinical Impression: Recurrent UTI, COVID-19, Weakness Condition: Stable Coding Level of Care Code ED Station Attendant for [facility] Fwd Related Data Home Medications Medication Instructions Recorded Confirmed loratadine 10 mg tablet (Claritin) 10 mg PO DAILY PRN ALLERGIES 08/22/19 08/23/24 metoprolol tartrate 25 mg tablet 12.5 mg PO BID 08/22/19 08/23/24 oxybutynin chloride 15 mg 15 mg PO DAILY 08/22/19 08/23/24 tablet,extended release 24 hr cyclobenzaprine 5 mg tablet 5 mg PO BID PRN Muscle Spasm 03/01/20 08/23/24 empagliflozin 25 mg tablet 25 mg PO QAM 03/01/20 08/23/24 (Jardiance) aspirin 81 mg tablet,delayed 81 mg PO DAILY 03/10/24 08/23/24 release diltiazem HCl 240 mg capsule,24 240 mg PO BID 08/23/24 08/23/24 hr,extended release insulin aspart U-100 100 unit/mL 40 unit SUBCUT TID 08/23/24 08/23/24 (3 mL) subcutaneous pen insulin glargine-yfgn 100 unit/mL 80 unit SUBCUT QPM 08/23/24 08/23/24 (3 mL) subcutaneous pen lisinopril 40 mg tablet 40 mg PO DAILY 08/23/24 08/23/24 Previous Rx's Medication Instructions Recorded cpap #1 ea 03/20/22 apixaban 5 mg tablet (Eliquis) 5 mg PO BID anticoagulation #180 05/31/24 tabs bupropion HCl 75 mg tablet 75 mg PO BID mood #180 tabs 08/05/24 Allergies Allergy/AdvReac Type Severity Reaction Status Date / Time Penicillins AdvReac nausea/vomi Verified 08/22/24 17:24 ting Pqeqirw-GEH-SqE Reductase AdvReac muscle pain Verified 08/22/24 17:24 Inhibitor [Gifseae-Mld-Hnq Reductase Inhibitor] Documented by User: Erma Carrero MD 08/22/24 21:59 HPI - Weakness 2 General: Chief complaint: Weakness Stated complaint: generalized weakness, flu like symptoms Time Seen by Provider: 08/22/24 17:32 PFSH ED 2 PFSH: Medical History Postmenopausal bleeding Hematuria Urinary tract infection Urgency incontinence Recurrent UTI CVA (cerebral vascular accident) Anticoagulation adequate with anticoagulant therapy Diabetes Obesity Obstructive sleep apnea Atrial fibrillation Chronic ischemia posterior cerebral artery stroke This patient has a 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 She has chronic atrial fibrillation, morbid obesity, poorly controlled diabetes with poor compliance on diet, hypertension that is under poor control and recurrent episodes that have brought her to the emergency department with transient neurologic symptoms and no residual. She has chronic findings of right homonymous hemianopsia from her previous left posterior cerebral artery stroke. Her is heavily invested in her care and motivated to help her with compliance on diet and exercise. She was recently started on Zetia. Her blood pressure and lipids will be managed by Dr. Wilson. I have nothing further to add. Her is very concerned that she is not keeping up with her fluids and I advise she should drink water at an appropriate amount. Getting her off of hydrochlorothiazide will probably help. I have nothing further to add. Surgical History Hx of tonsillectomy Hx of appendectomy Family History Father , IN HIS LATE 50'S No problems noted. Mother , AT AGE 65 Hypertension Grandmother Breast cancer maternal Sister Diabetes Hypertension Denies family history of Colon cancer Ovarian cancer Heart disease Hypercholesteremia Uterine cancer Thyroid disease Stroke Social History Smoking and tobacco/nicotine status: never used tobacco/nicotine Substance/Drug Use: unknown Course 2 Vital Signs: Vital signs: Vital Signs Temperature 97.9 F 08/24/24 07:25 Pulse Rate 89 08/24/24 09:20 Respiratory Rate 18 08/24/24 09:20 Blood Pressure 128/76 08/24/24 07:25 Pulse Oximetry 92 08/24/24 09:20 Oxygen Delivery Me thod Nasal Cannula 08/24/24 09:20 Oxygen Flow Rate 3 08/24/24 09:20 MDM - Weakness Medical Decision Making Care signed out to Dr. Carrero at change of shift. See final notes for diagnosis and disposition. Consultation: I spoke with Dr. Babin who is on-call for the hospitalist service who agrees to admission. Assessment and plan: Urinary tract infection UTI Weakness Debility Chronic back pain -I discussed the patient with the hospitalist on-call who is admitting the patient. - Discussed findings and plan with patient. Answered any questions. - All laboratory values were reviewed and interpreted personally by myself, the ER physician - All imaging was reviewed and interpreted personally by myself, the ER physician. - Evaluation and treatment of this problem were appropriate in the emergency setting Lab Data 08/23/24 06:55 08/23/24 06:55 Laboratory Results WBC 6.51 10^3/uL (3.29-11.43) 08/23/24 06:55 Corrected WBC Cancelled 08/23/24 05:00 RBC 5.51 10^6/uL (3.85-5.65) 08/23/24 06:55 Hgb 15.50 g/dL (11.27-16.99) 08/23/24 06:55 Hct 49.1 % (36-47) H 08/23/24 06:55 MCV 89.1 fl (85-98) 08/23/24 06:55 MCH 28.1 pg (27-33) 08/23/24 06:55 MCHC 31.6 g/dL (30-55) 08/23/24 06:55 RDW 14.9 % (12.1-15.1) 08/23/24 06:55 Plt Count 145 10^3/cmm (157-399) L 08/23/24 06:55 MPV 12.0 fL (7.4-10.4) H 08/23/24 06:55 Gran % Cancelled 08/23/24 05:00 Neut % (Auto) 82.1 % 08/23/24 06:55 Lymph % (Auto) 10.3 % 08/23/24 06:55 Karnes % (Auto) 6.6 % 08/23/24 06:55 Eos % (Auto) 0.2 % 08/23/24 06:55 Baso % (Auto) 0.2 % 08/23/24 06:55 Neut # (Auto) 5.35 10^3/uL (1.8-7.7) 08/23/24 06:55 Lymph # (Auto) 0.7 10^3/uL (0.8-4.8) L 08/23/24 06:55 Karnes # (Auto) 0.4 10^3/uL (0.2-0.9) 08/23/24 06:55 Eos # (Auto) 0.0 10^3/uL (0.0-0.8) 08/23/24 06:55 Baso # (Auto) 0.0 10^3/uL (0.0-0.1) 08/23/24 06:55 Absolute Gran (auto) Cancelled 08/23/24 05:00 Nucleated RBC % (auto) 0 % 08/23/24 06:55 Nucleated RBCs # 0.0 /100WBC 08/23/24 06:55 Sodium 139 mmol/L (136-145) 08/23/24 06:55 Potassium 4.4 mmol/L (3.5-5.1) 08/23/24 06:55 Chloride 103 mmol/L (98-107) 08/23/24 06:55 Carbon Dioxide 18 mmol/L (22-29) L 08/23/24 06:55 Anion Gap 22.4 (5-19) H 08/23/24 06:55 BUN 24 mg/dL (8-23) H 08/23/24 06:55 Creatinine 1.3 mg/dL (0.5-0.9) H 08/23/24 06:55 GFR Calculation Not Reportable 08/23/24 06:55 Glucose 123 mg/dL (65-115) H 08/23/24 06:55 Calculated Osmolality 293 mOsm/kg (285-295) 08/23/24 06:55 Calcium 8.1 mg/dL (8.5-10.5) L 08/23/24 06:55 Phosphorus 3.4 mg/dL (2.5-4.5) 08/23/24 06:55 Magnesium 2.0 mg/dL (1.7-2.3) 08/23/24 06:55 Total Bilirubin 0.5 mg/dL (0.15-1.2) 08/22/24 18:05 AST 33 U/L (0-32) H 08/22/24 18:05 ALT 23 U/L (0-33) 08/22/24 18:05 Alkaline Phosphatase 58 U/L (35-105) 08/22/24 18:05 C-Reactive Protein 103.1 mg/L (0.0-4.9) H 08/23/24 06:55 Total Protein 6.9 g/dL (6.6-8.7) 08/22/24 18:05 Albumin 3.4 g/dL (3.5-5.2) L 08/22/24 18:05 Globulin 3.5 g/dL (1.3-4.6) 08/22/24 18:05 Procalcitonin 0.17 ng/mL (0-0.5) 08/23/24 06:55 Procalcitonin Cancelled 08/23/24 06:55 Urine Color Yellow (Yellow) 08/22/24 20: Urine Appearance Cloudy (CLEAR) A 08/22/24 20: Urine pH 5.5 (5-7) 08/22/24 20: Ur Specific [place] 1.018 (1.005-1.030) 08/22/24 20: Urine Protein 1+ (Negative) A 08/22/24 20: Urine Glucose (UA) 2+ (Normal) H 08/22/24 20: Urine Ketones Negative (Negative) 08/22/24 20: Urine Blood 3+ (Negative) A 08/22/24: Urine Nitrate Negative (Negative) 08/22/24: Urine Bilirubin Negative (Negative) 08/22/24 20: Urine Urobilinogen 0.2 mg/dL (Negative) 08/22/24 20: Ur Leukocyte Esterase 2+ (Negative) A 08/22/24 20: Urine RBC 6-10 /hpf (0-2) 08/22/24 20: Urine WBC >100 /hpf (0-5) H 08/22/24 20:31 Ur Squamous Epith Cells 0-5 /hpf (0-5) 08/22/24 20: Amorphous Sediment Not Reportable 08/22/24 20: Urine Bacteria None seen /hpf (NONE) 08/22/24 20: Hyaline Casts 0.81 /lpf 08/22/24 20:31 Urine Yeast 1+ /hpf H 08/22/24 20:31 Adenovirus (PCR) Not detected (NOT DETECT) 08/22/24 17:50 C. pneumoniae DNA (PCR) Not detected (NOT DETECT) 08/22/24 17:50 Coronavirus 229E (PCR) Not detected (NOT DETECT) 08/22/24 17:50 Human Metapneumovir PCR Not detected (NOT DETECT) 08/22/24 17:50 Influenza A (H1) PCR Not detected (NOT DETECT) 08/22/24 17:50 Influ A (H1/09) PCR Not detected (NOT DETECT) 08/22/24 17:50 Influenza A (H3) PCR Not detected (NOT DETECT) 08/22/24 17:50 Influenza Type A (PCR) Not detected (NOT DETECT) 08/22/24 17:50 Influenza Type B (PCR) Not detected (NOT DETECT) 08/22/24 17:50 M. pneumoniae (PCR) Not detected (NOT DETECT) 08/22/24 17:50 Parainfluenza 1 (PCR) Not detected (NOT DETECT) 08/22/24 17:50 Parainfluenza 2 (PCR) Not detected (NOT DETECT) 08/22/24 17:50 Parainfluenza 3 (PCR) Not detected (NOT DETECT) 08/22/24 17:50 Parainfluenza 4 (PCR) Not detected (NOT DETECT) 08/22/24 17:50 RSV Type A (PCR) Not detected (NOT DETECT) 08/22/24 17:50 RSV Type B (PCR) Not detected (NOT DETECT) 08/22/24 17:50 Entero/Rhino (PCR) Not detected (NOT DETECT) 08/22/24 17:50 SARS-CoV-2 (PCR) Detected (NOT DETECT) A 08/22/24 17:50 All radiology interpretation(s) finalized by discharge Discharge Plan Discharge Patient Disposition: Admitted As Inpatient Admit Provider: Belkys Babin Clinical Impression: Recurrent UTI, COVID-19, Weakness Condition: Stable Coding Level of Care Code ED Station Attendant for [facility] Fwd Related Data Home Medications Medication Instructions Recorded Confirmed loratadine 10 mg tablet (Claritin) 10 mg PO DAILY PRN ALLERGIES 08/22/19 08/23/24 metoprolol tartrate 25 mg tablet 12.5 mg PO BID 08/22/19 08/23/24 oxybutynin chloride 15 mg 15 mg PO DAILY 08/22/19 08/23/24 tablet,extended release 24 hr cyclobenzaprine 5 mg tablet 5 mg PO BID PRN Muscle Spasm 03/01/20 08/23/24 empagliflozin 25 mg tablet 25 mg PO QAM 03/01/20 08/23/24 (Jardiance) aspirin 81 mg tablet,delayed 81 mg PO DAILY 03/10/24 08/23/24 release diltiazem HCl 240 mg capsule,24 240 mg PO BID 08/23/24 08/23/24 hr,extended release insulin aspart U-100 100 unit/mL 40 unit SUBCUT TID 08/23/24 08/23/24 (3 mL) subcutaneous pen insulin glargine-yfgn 100 unit/mL 80 unit SUBCUT QPM 08/23/24 08/23/24 (3 mL) subcutaneous pen lisinopril 40 mg tablet 40 mg PO DAILY 08/23/24 08/23/24 Previous Rx's Medication Instructions Recorded cpap #1 ea 03/20/22 apixaban 5 mg tablet (Eliquis) 5 mg PO BID anticoagulation #180 05/31/24 tabs bupropion HCl 75 mg tablet 75 mg PO BID mood #180 tabs 08/05/24 Allergies Allergy/AdvReac Type Severity Reaction Status Date / Time Penicillins AdvReac nausea/vomi Verified 08/22/24 17:24 ting Tkkhgdr-YVL-InA Reductase AdvReac muscle pain Verified 08/22/24 17:24 Inhibitor [Pwfagic-Exn-Xnj Reductase Inhibitor]
[2024-08-22 18:15] LABS: Basophils % 0.2 %; Eosinophils % 0.6 %; Hematocrit 50.8 % (36-47); Lymphocytes # 1.1 10^3/uL (0.8-4.8); Lymphocytes % 20.4 %; Mean Corpuscular HGB Conc 31.1 g/dL (30-55); Mean Corpuscular Hemoglobin 27.8 pg (27-33); Mean Corpuscular Volume 89.3 fl (85-98); Mean Platelet Volume 11.7 fL (7.4-10.4); Monocytes # 0.4 10^3/uL (0.2-0.9); Neutrophils # 3.68 10^3/uL (1.8-7.7); Neutrophils % 70.2 %; Nucleated Red Blood Cells % 0 %; Platelet Count 141 10^3/cmm (157-399); Red Blood Count 5.69 10^6/uL (3.85-5.65); White Blood Count 5.24 10^3/uL (3.29-11.43)
[2024-08-22] MEDS: ipratropium-albuterol 3 mL Neb INHALATION (18:15)
[2024-08-22 18:17] VITALS: PULSE 94; RESP 18; O2SAT 93
[2024-08-22 18:24] VITALS: PULSE 69
[2024-08-22 18:34] LABS: Alanine Aminotransferase 23 U/L (0-33); Albumin Level 3.4 g/dL (3.5-5.2); Alkaline Phosphatase 58 U/L (35-105); Anion Gap 15.3 (5-19); Aspartate Amino Transferase 33 U/L (0-32); Blood Urea Nitrogen 32 mg/dL (8-23); Calcium 8.7 mg/dL (8.5-10.5); Carbon Dioxide 23 mmol/L (22-29); Chloride 102 mmol/L (98-107); Creatinine Clr Calc Pharmacy 46.4836; Globulin 3.5 g/dL (1.3-4.6); Glucose 98 mg/dL (65-115); Osmolality Calculated 289 mOsm/kg (285-295); Potassium 4.3 mmol/L (3.5-5.1); Sodium 136 mmol/L (136-145); Total Bilirubin 0.5 mg/dL (0.15-1.2); Total Protein 6.9 g/dL (6.6-8.7)
[2024-08-22 20:13] LABS: Adenovirus Not Detected (NOT DETECT); Chlamydia Pneumoniae Not Detected (NOT DETECT); Coronavirus 229E,HKU1,NL63,OC4 Not Detected (NOT DETECT); Human Metapneumovirus Not Detected (NOT DETECT); Human Rhinovirus/Enterovirus Not Detected (NOT DETECT); Influenza A Not Detected (NOT DETECT); Influenza A H1 Not Detected (NOT DETECT); Influenza A H1-2009 Not Detected (NOT DETECT); Influenza A H3 Not Detected (NOT DETECT); Influenza B Not Detected (NOT DETECT); Mycoplasma Pneumoniae Not Detected (NOT DETECT); Parainfluenza Virus Type 1 Not Detected (NOT DETECT); Parainfluenza Virus Type 2 Not Detected (NOT DETECT); Parainfluenza Virus Type 3 Not Detected (NOT DETECT); Parainfluenza Virus Type 4 Not Detected (NOT DETECT); Respiratory Syncytial Virus A Not Detected (NOT DETECT); Respiratory Syncytial Virus B Not Detected (NOT DETECT)
[2024-08-22 20:15] LABS: SARS-COV-2 Detected (NOT DETECT)
[2024-08-22 20:35] VITALS: BP 130/96; PULSE 90; RESP 16; O2SAT 92
[2024-08-22 20:42] LABS: Bilirubin Urine Negative (Negative); Blood Urine 3+ (Negative); Glucose Urine UA 2+ (Normal); Ketones Urine Negative (Negative); Leukocyte Esterase Urine 2+ (Negative); Nitrate Urine Negative (Negative); Protein Urine 1+ (Negative); Specific Gravity, Urine 1.018 (1.005-1.030); Urine Appearance Cloudy (CLEAR); Urine Color Yellow (Yellow); Urobilinogen Urine 0.2 mg/dL (Negative); pH Urine 5.5 (5-7)
[2024-08-22 20:47] LABS: Add Urine Microscopic? YES; Bacteria Urine None Seen /hpf; Hyaline Casts Urine 0.81 /lpf; Squamous Epithelial Cell Urine 0-5 /hpf (0-5); WBC Urine >100 /hpf (0-5)
[2024-08-22 21:06] LABS: UA Slide Review UA Slide Review Perf
[2024-08-22 21:10] LABS: Add Urine Culture? Yes
--- NOTE | 2024-08-22 21:14 | P.HP_ITS ---
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 Patient stating that she has been sick for last 2 weeks she has not taken temperature but endorsing subjective fever, she is not endorsing chest pain, diarrhea abdominal pain or vomiting. Stating that p.o. intake has been poor. is also sick with COVID-19, is not able to take care of her requesting admission in the hospital, patient is afebrile not quitting oxygen, patient is stating that she has MRI of lower back appointment tomorrow which she wants to keep and get it done before further plan could be made. Workup consistent with acute on chronic kidney disease and UTI Goodman catheter was placed which is showing turbid colored urine, x-ray remarkable Patient uses a walker to ambulate at home, Review of Systems 2 Const: Reports: fever(s) and chills Eyes: Denies: change in vision ENMT: Denies: throat pain Card: Denies: chest pain Resp: Reports: dyspnea GI: Denies: abdominal pain : Denies: flank pain Musc: Reports: back pain Medications/Allergies Home Medications Medication Instructions Recorded Confirmed Last Taken Type ezetimibe 10 mg tablet (Zetia) 10 mg PO DAILY 08/22/19 07/28/24 12/03/22 History loratadine 10 mg tablet (Claritin) 10 mg PO DAILY PRN ALLERGIES 08/22/19 07/28/24 12/03/22 History metoprolol tartrate 25 mg tablet 12.5 mg PO BID 08/22/19 07/28/24 12/04/22 History oxybutynin chloride 15 mg 15 mg PO DAILY 08/22/19 07/28/24 12/03/22 History tablet,extended release 24 hr cyclobenzaprine 5 mg tablet 5 mg PO BID PRN Muscle Spasm 03/01/20 07/28/24 12/03/22 History empagliflozin 25 mg tablet 25 mg PO QAM 03/01/20 07/28/24 12/03/22 History (Jardiance) cholecalciferol (vitamin D3) 125 125 mcg PO DAILY 10/16/21 07/28/24 03/09/24 History mcg (5,000 unit) capsule plfyjrpx-jclgpli-auzh-lutein tablet 1 tab PO DAILY 10/16/21 07/28/24 12/03/22 History cpap #1 ea 03/20/22 07/28/24 Unknown Rx triamcinolone acetonide 0.1 % 1 applic topical BID PRN Skin 02/12/23 07/28/24 Unknown History topical ointment Irritation aspirin 81 mg tablet,delayed 81 mg PO DAILY 03/10/24 07/28/24 03/09/24 History release lisinopril 40 mg tablet 40 mg PO DAILY 03/10/24 07/28/24 Unknown History insulin NPH isoph U-100 human 100 40 unit (0.4 mL) SUBCUT TID PRN 03/15/24 07/28/24 Unknown Rx unit/mL subcutaneous suspension Hyperglycemia #10 mL (Novolin N NPH U-100 Insulin isophane) apixaban 5 mg tablet (Eliquis) 5 mg PO BID anticoagulation #180 05/31/24 07/28/24 Unknown Rx tabs insulin glargine 100 unit/mL (3 80 unit (0.8 mL) SUBCUT DAILY #15 06/27/24 07/28/24 Unknown Rx mL) subcutaneous pen (Lantus mL Solostar U-100 Insulin) insulin aspart U-100 100 unit/mL 40 unit (0.4 mL) SUBCUT TID #45 mL 06/28/24 07/28/24 Unknown Rx (3 mL) subcutaneous pen (Novolog FlexPen U-100 Insulin aspart) ketoconazole 2 % topical cream 1 applic topical BID #30 grams 07/18/24 07/28/24 Unknown Rx bupropion HCl 75 mg tablet 75 mg PO BID mood #180 tabs 08/05/24 Unknown Rx Allergies Allergy/AdvReac Type Severity Reaction Status Date / Time Penicillins AdvReac nausea/vomi Verified 08/22/24 17:24 ting Ecplnjh-FVD-RjD Reductase AdvReac muscle pain Verified 08/22/24 17:24 Inhibitor [Jjvdqrj-Ova-Ndb Reductase Inhibitor] PFSH Acute 2 PFSH: Medical History Postmenopausal bleeding Hematuria Urinary tract infection Urgency incontinence Recurrent UTI CVA (cerebral vascular accident) Anticoagulation adequate with anticoagulant therapy Diabetes Obesity Obstructive sleep apnea Atrial fibrillation Chronic ischemia posterior cerebral artery stroke This patient has a 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 She has chronic atrial fibrillation, morbid obesity, poorly controlled diabetes with poor compliance on diet, hypertension that is under poor control and recurrent episodes that have brought her to the emergency department with transient neurologic symptoms and no residual. She has chronic findings of right homonymous hemianopsia from her previous left posterior cerebral artery stroke. Her is heavily invested in her care and motivated to help her with compliance on diet and exercise. She was recently started on Zetia. Her blood pressure and lipids will be managed by Dr. Wilson. I have nothing further to add. Her is very concerned that she is not keeping up with her fluids and I advise she should drink water at an appropriate amount. Getting her off of hydrochlorothiazide will probably help. I have nothing further to add. Surgical History Hx of tonsillectomy Hx of appendectomy Family History Father , IN HIS LATE 50'S No problems noted. Mother , AT AGE 65 Hypertension Grandmother Breast cancer maternal Sister Diabetes Hypertension Denies family history of Colon cancer Ovarian cancer Heart disease Hypercholesteremia Uterine cancer Thyroid disease Stroke Social History Smoking and tobacco/nicotine status: never used tobacco/nicotine Substance/Drug Use: unknown Vitals/I&O/Wt Last Vital Signs Temp 97.8 F 08/22/24 17:17 Pulse 90 08/22/24 20:35 Resp 16 08/22/24 20:35 BP 130/96 08/22/24 20:35 Pulse Ox 92 08/22/24 20:35 O2 Del Method Room Air 08/22/24 20:35 08/22/24 08/22/24 08/22/24 06:59 14:59 22:59 Intake Total 350 / 350 Balance 350 / 350 Weight last 48 hrs Weight 124.738 kg Physical Exam 2 Narrative: Patient extremely dehydrated Dry mucous membrane Low extremity extreme dryness nonpurulent cellulitis Venous stasis dermatitis Patient AOx3 GCS 15 I do not appreciate any focal deficit Currently on room air No active chest pain S1, S2 with loud systolic murmur Data 08/22/24 18:05 08/22/24 18:05 A&P Assessment and plan (1) Atrial fibrillation: (2) Venous stasis: (3) Anticoagulation adequate with anticoagulant therapy: (4) Diabetes: (5) Obesity: (6) Recurrent UTI: (7) Back pain: (8) Chronic ischemia posterior cerebral artery stroke: (9) Obstructive sleep apnea: Plan COVID-19 Not requiring oxygen Afebrile I would not start Decadron or remdesivir Conservative management for now No signs of bacterial pneumonia on chest x-ray Lower back pain Generalized weakness and fatigue She can keep appointment for MRI tomorrow Kindly follow-up with MRI supervisor benzene refining to see if we can do it while she is here UTI No sign of sepsis Turbid urine Start ceftriaxone Venous stasis dermatitis with dryness Nonpurulent cellulitis Patient uses a walker to ambulate Insulin-dependent diabetes Insulin with sliding scale Acute on chronic kidney disease anticipate improvement with better p.o. intake Full code A-fib without RVR On Eliquis Further plan will be made after physical therapy, is not able to take care of her Attestations 2 Medical Necessity Statement*: Anticipating discharge within 48 hours Diagnoses Atrial fibrillation I48.91 Venous stasis I87.8 Anticoagulation adequate with anticoagulant therapy Z79.01 Diabetes E11.9 Obesity E66.9 Recurrent UTI N39.0 Back pain M54.9 Chronic ischemia posterior cerebral artery stroke I69.30 Obstructive sleep apnea G47.33
[2024-08-22 21:32] VITALS: BP 130/96; PULSE 90; RESP 16; O2SAT 92
[2024-08-22] MEDS: cefepime 2,000 mg SDV 2000 MG IVP (21:37)
[2024-08-22 22:09] VITALS: BMI 47.4
--- NOTE | 2024-08-22 22:11 | PC.NURSE ---
PT ARRIVED TO UNIT AROUND 2200. PT IS CONFUSED WITH NO FAMILY PRESENT. PART OF ADMISSION WAS UNABLE TO BE COMPLETED D/T AMS AND NO FAMILY PRESENT. PT RESTING COMFORTABLY IN BED WITH NO COMPLAINTS AT THIS TIME. THIS RN WILL CONTINUE TO MONITOR UNTIL THE END OF THIS RNS SHIFT.
[2024-08-23] VITALS (9 sets, daily range): BP systolic 121–148; BP diastolic 74–96; PULSE 62–128; RESP 16–22; TEMP 36.8–39; O2SAT 84–96
[2024-08-23] MEDS: acetaminophen 500 mg Tablet PO ×2 (04:58→21:17)
[2024-08-23 07:06] LABS: Basophils % 0.2 %; Eosinophils % 0.2 %; Hematocrit 49.1 % (36-47); Lymphocytes # 0.7 10^3/uL (0.8-4.8); Lymphocytes % 10.3 %; Mean Corpuscular HGB Conc 31.6 g/dL (30-55); Mean Corpuscular Hemoglobin 28.1 pg (27-33); Mean Corpuscular Volume 89.1 fl (85-98); Monocytes # 0.4 10^3/uL (0.2-0.9); Monocytes % 6.6 %; Neutrophils # 5.35 10^3/uL (1.8-7.7); Neutrophils % 82.1 %; Nucleated Red Blood Cells % 0 %; Platelet Count 145 10^3/cmm (157-399); Red Blood Count 5.51 10^6/uL (3.85-5.65); Red Cell Distribution Width 14.9 % (12.1-15.1); White Blood Count 6.51 10^3/uL (3.29-11.43)
[2024-08-23 07:24] LABS: Anion Gap 22.4 (5-19); Blood Urea Nitrogen 24 mg/dL (8-23); Calcium 8.1 mg/dL (8.5-10.5); Carbon Dioxide 18 mmol/L (22-29); Chloride 103 mmol/L (98-107); Glucose 123 mg/dL (65-115); Osmolality Calculated 293 mOsm/kg (285-295); Potassium 4.4 mmol/L (3.5-5.1); Sodium 139 mmol/L (136-145)
--- NOTE | 2024-08-23 07:52 | PC.PHAR ---
patient is [facility], sent fax for med list this morning at 730 will follow up with med list when received
[2024-08-23] MEDS: metoprolol tartrate 25 mg Tablet 12.5 MG PO ×2 (08:54→17:36)
[2024-08-23] MEDS: oxybutynin chloride XL 5 MG TABLET 15 MG PO (08:54)
[2024-08-23] MEDS: fluconazole 100 mg Tablet PO (08:54)
[2024-08-23] MEDS: apixaban 5 mg Tablet PO ×2 (08:54→17:36)
[2024-08-23] MEDS: insulin glargine 100 units/1 mL 50 UNIT SUBCUT (08:54)
[2024-08-23] MEDS: aspirin 81 mg EC Tablet PO (08:54)
[2024-08-23] MEDS: ezetimibe 10 mg Tablet PO (08:54)
[2024-08-23] MEDS: cefTRIAXone 1,000 MG in sodium chloride 0.9% (plus) 50 ML 100 MG IV (08:55)
--- NOTE | 2024-08-23 09:14 | PC.CHAP ---
Pastoral Care Encounter/Spiritual Assessment Type of Contact [] Declined head of measurement & insights visit [] Patient/Family/Request visit [] Outpatient visit [] Follow-up visit [] Physician referral [] Code/Alert [] Routine visit [] Staff referral [] Actively dying [] Patient sleeping [] Family support [] [] Out of room [] Palliative care [] [] Receiving care in room [] Pre-surgical visit [] Trauma [] Long length of stay [] ICU visit [x] Other:Contact precautions. No visit. Relational/Emotional Strength [] Patient feels connected with others/family/visitors/staff [] Distress [] Loneliness/isolation [] Abandonment Spirituality of Patient [] Person of Nancy [] Attends Adventist of their Nancy [] Believes in Prayer [] Reads Bible or Alevism materials [] There are Spiritual issues to be addressed Shop Clerk Interventions [] Prayer [] Active listening [] Non-anxious presence [] Spiritual/emotional support [] Crisis/trauma care [] Spiritual counseling [] Bereavement support [] Provided bereavement packet [] Provided Bible/devotional materials [] Provided toy/stuffed animal, coloring book to patient or family member [] Provided Communion [] Anointing/[place] [] Salvation [] Completed spiritual assessment [] Other: Impact on Illness or Injury [] Angry [] Fearful [] Anxious [] Often cries [] Exhaustion [] Unable to work [] Unable to attend jain [] Unable to walk/stand [] Unable to read [] Unable to drive [] Unable to eat/drink [] Unable to sleep [] Unable to be with family [] Patient intubated [] Other: Summary Time spent with patient
[2024-08-23 11:43] LABS: Glucose Point of Care 131 mg/dL (70-110)
[2024-08-23] MEDS: levalbuterol 0.63 mg/3 mL Neb INHALATION ×2 (13:24→20:07)
[2024-08-23] MEDS: ipratropium 0.5 mg/2.5 mL Neb INHALATION ×2 (13:24→20:08)
[2024-08-23] MEDS: remdesivir 200 MG in sodium chloride 0.9% (100 ml) 100 ML 100 MG IV (13:33)
[2024-08-23] MEDS: dexamethasone 4 mg/mL INJ 6 MG IVP (13:34)
[2024-08-23] MEDS: dilTIAZem 60 mg Tablet PO ×2 (13:34→17:36)
[2024-08-23] MEDS: benzonatate 100 mg Capsule PO ×2 (13:36→21:17)
[2024-08-23] MEDS: sodium chloride 0.9% 1,000 ML 75 ML IV (13:37)
[2024-08-23 13:50] LABS: Procalcitonin 0.17 ng/mL (0-0.5)
--- NOTE | 2024-08-23 13:53 | P.PN_ITS ---
Subjective 2 Subjective: Admitted overnight. Tmax since admission 102 Fahrenheit. On examination patient is awake, looks slightly uncomfortable, saturating in high 80s on room air. Complaining of generalized bodyaches. Vitals/I&O/Wt Last Vital Signs Temp 100.1 F H 08/23/24 12:00 Pulse 87 08/23/24 13:31 Resp 16 08/23/24 13:31 BP 130/74 08/23/24 12:00 Pulse Ox 95 08/23/24 13:31 O2 Del Method Nasal Cannula 08/23/24 13:31 O2 Flow Rate 2 08/23/24 13:31 08/22/24 08/23/24 08/23/24 22:59 06:59 14:59 Intake Total 350 / 350 120 / 470 50 / 50 Output Total 200 / 200 450 / 450 Balance 350 / 350 -80 / 270 -400 / -400 Weight last 48 hrs Weight 137.438 kg Weight 137.438 kg Weight 124.738 kg Physical Exam 2 Urinary Catheter Management: Goodman: Cath Placed During This Visit: yes Reason for Continuing Indwelling Catheter: Acute Urinary Retention or Obstruction Urinary Catheter Date of Insertion: 08/22/24 Urinary Catheter Time of Insertion: 21:31 Data 08/23/24 06:55 08/23/24 06:55 Micro: Microbiology 08/23/24 13:11 Blood Culture - Preliminary Blood SPECIMEN COLLECTED A&P Assessment and plan (1) Respiratory failure with hypoxia: (2) COVID-19: (3) Obstructive sleep apnea: (4) Atrial fibrillation: (5) Venous stasis: (6) Anticoagulation adequate with anticoagulant therapy: (7) Diabetes: (8) Obesity: (9) Recurrent UTI: (10) Back pain: (11) Chronic ischemia posterior cerebral artery stroke: Plan Respiratory failure with hypoxia: Desaturating down to mid 80s on room air. COVID-19: Hypoxia secondary to COVID-19 pneumonia: Mild to moderate disease. Oxygen supplementation keeping saturation over 88%. Dexamethasone 6 mg daily. Remdesivir to finish a 5-day course. Ipratropium and Xopenex every 6 hour, budesonide twice daily Pulmonary toilet with incentive spirometry flutter valve. We will monitor inflammatory markers including CRP every 48 hours. Check D-dimer. Patient already on full dose anticoagulation for stroke prevention with Eliquis. Check sputum culture, trend procalcitonin, check MRSA swab, bacterial antigen, blood culture. Concern for superimposed bacterial infection admission. Continue with IV ceftriaxone for now. Add azithromycin for atypical coverage. If MRSA swab is positive will add vancomycin. Given hypoxia will try to keep patient as negative as possible. Lasix as per fluid status. Slightly dehydrated now. Start on NS at 75 cc/h for 1 bag Strict input output charting, daily weights. Obstructive sleep apnea: Continue with home CPAP. UTI: Started on IV ceftriaxone. For now we will continue. Blood cultures not drawn. Will check. Follow-up urine culture. Atrial fibrillation: Currently in RVR. Continue with home dose of metoprolol. Takes Cardizem 240 mg twice daily at home. Started on Cardizem 60 mg every 6 hours. Uptitrate depending on blood pressures. Continue with home dose of Eliquis. Type 2 diabetes mellitus: Appreciate A1c. Patient seen sliding scale before meals and at bedtime. Increase Lantus to 40 units twice daily. Watch for hypoglycemia. CKD: Does have creatinine recently up to 1.3-1.5. Has gone as high as 2.1 back in February. Currently creatinine at baseline. Continue to monitor. Medical reconciliation done for nephrotoxic drugs. Full code Carb consistent diet Protonix OPD prophylaxis Eliquis will be sufficient for DVT prophylaxis. Attestations 2 Medical Necessity Statement*: Requires further hospitalization for management of hypoxia in setting of COVID- 19, A-fib with RVR, obstructive sleep apnea Diagnoses Respiratory failure with hypoxia J96.91 COVID-19 U07.1 Obstructive sleep apnea G47.33 Atrial fibrillation I48.91 Venous stasis I87.8 Anticoagulation adequate with anticoagulant therapy Z79.01 Diabetes E11.9 Obesity E66.9 Recurrent UTI N39.0 Back pain M54.9 Chronic ischemia posterior cerebral artery stroke I69.30
[2024-08-23 15:16] LABS: MRSA PCR OZH (swab) NOT DETECTED (Not Detecte)
[2024-08-23 17:00] LABS: Glucose Point of Care 157 mg/dL (70-110)
[2024-08-23] MEDS: insulin glargine 100 units/1 mL 40 UNIT SUBCUT (17:36)
[2024-08-23] MEDS: insulin lispro 100 unit/1 mL SUBCUT ×2 (17:36→21:17)
[2024-08-23 20:49] LABS: Glucose Point of Care 191 mg/dL (70-110)
[2024-08-24] VITALS (13 sets, daily range): BP systolic 117–145; BP diastolic 67–81; PULSE 67–95; RESP 17–20; TEMP 36.6–36.8; O2SAT 89–94; BMI 42.1
[2024-08-24] MEDS: dilTIAZem 60 mg Tablet PO ×4 (00:18→17:39)
[2024-08-24 06:49] LABS: Glucose Point of Care 145 mg/dL (70-110)
[2024-08-24 07:16] LABS: C Reactive Protein 103.1 mg/L (0.0-4.9); Phosphorus 3.4 mg/dL (2.5-4.5)
[2024-08-24] MEDS: apixaban 5 mg Tablet PO ×2 (08:55→17:39)
[2024-08-24] MEDS: benzonatate 100 mg Capsule PO ×3 (08:56→20:43)
[2024-08-24] MEDS: aspirin 81 mg EC Tablet PO (08:56)
[2024-08-24] MEDS: ezetimibe 10 mg Tablet PO (08:56)
[2024-08-24] MEDS: oxybutynin chloride XL 5 MG TABLET 15 MG PO (08:56)
[2024-08-24] MEDS: fluconazole 100 mg Tablet PO (08:56)
[2024-08-24] MEDS: metoprolol tartrate 25 mg Tablet 12.5 MG PO ×2 (08:56→17:39)
[2024-08-24] MEDS: zinc gluconate 50 mg Tablet PO (08:56)
[2024-08-24] MEDS: cefTRIAXone 1,000 MG in sodium chloride 0.9% (plus) 50 ML 100 MG IV (08:57)
[2024-08-24] MEDS: insulin glargine 100 units/1 mL 40 UNIT SUBCUT ×2 (08:57→17:38)
[2024-08-24] MEDS: insulin lispro 100 unit/1 mL SUBCUT ×4 (08:57→20:43)
[2024-08-24] MEDS: ipratropium 0.5 mg/2.5 mL Neb INHALATION ×3 (09:20→20:54)
[2024-08-24] MEDS: levalbuterol 0.63 mg/3 mL Neb INHALATION ×3 (09:20→20:54)
--- NOTE | 2024-08-24 09:44 | PC.CHAP ---
Pastoral Care Encounter/Spiritual Assessment Type of Contact [] Declined substation operator conversion visit [] Patient/Family/Request visit [] Outpatient visit [] Follow-up visit [] Physician referral [] Code/Alert [] Routine visit [] Staff referral [] Actively dying [] Patient sleeping [] Family support [] [] Out of room [] Palliative care [] [] Receiving care in room [] Pre-surgical visit [] Trauma [] Long length of stay [] ICU visit [x] Other:Contact precautions. No visit. Relational/Emotional Strength [] Patient feels connected with others/family/visitors/staff [] Distress [] Loneliness/isolation [] Abandonment Spirituality of Patient [] Person of Nancy [] Attends Zoroastrian of their Nancy [] Believes in Prayer [] Reads Bible or Yarsani materials [] There are Spiritual issues to be addressed [employer] Interventions [] Prayer [] Active listening [] Non-anxious presence [] Spiritual/emotional support [] Crisis/trauma care [] Spiritual counseling [] Bereavement support [] Provided bereavement packet [] Provided Bible/devotional materials [] Provided toy/stuffed animal, coloring book to patient or family member [] Provided Communion [] Anointing/[place] [] Salvation [] Completed spiritual assessment [] Other: Impact on Illness or Injury [] Angry [] Fearful [] Anxious [] Often cries [] Exhaustion [] Unable to work [] Unable to attend religious [] Unable to walk/stand [] Unable to read [] Unable to drive [] Unable to eat/drink [] Unable to sleep [] Unable to be with family [] Patient intubated [] Other: Summary Time spent with patient Pastoral Care Encounter/Spiritual Assessment Type of Contact [] Declined substation operator conversion visit [] Patient/Family/Request visit [] Outpatient visit [] Follow-up visit [] Physician referral [] Code/Alert [] Routine visit [] Staff referral [] Actively dying [] Patient sleeping [] Family support [] [] Out of room [] Palliative care [] [] Receiving care in room [] Pre-surgical visit [] Trauma [] Long length of stay [] ICU visit [] Other: Relational/Emotional Strength [] Patient feels connected with others/family/visitors/staff [] Distress [] Loneliness/isolation [] Abandonment Spirituality of Patient [] Person of Nancy [] Attends Zoroastrian of their Nancy [] Believes in Prayer [] Reads Bible or Yarsani materials [] There are Spiritual issues to be addressed [employer] Interventions [] Prayer [] Active listening [] Non-anxious presence [] Spiritual/emotional support [] Crisis/trauma care [] Spiritual counseling [] Bereavement support [] Provided bereavement packet [] Provided Bible/devotional materials [] Provided toy/stuffed animal, coloring book to patient or family member [] Provided Communion [] Anointing/[place] [] Salvation [] Completed spiritual assessment [] Other: Impact on Illness or Injury [] Angry [] Fearful [] Anxious [] Often cries [] Exhaustion [] Unable to work [] Unable to attend religious [] Unable to walk/stand [] Unable to read [] Unable to drive [] Unable to eat/drink [] Unable to sleep [] Unable to be with family [] Patient intubated [] Other: Summary Time spent with patient
--- NOTE | 2024-08-24 10:00 | XR_ITS ---
WS: [id number] Portable AP upright chest, 08/24/2024 Clinical Data: sob Comparison: Portable chest, 08/22/2024 Findings: A right lower lobe opacity has developed in the last 2 days. No nodules, masses or effusion s are seen. The heart is enlarged. The pulmonary vascularity is not increased. No pneumonia or pneumo thorax is seen. The aortic arch shows mild calcification. There are monitor leads on the chest wall. XR/XR chest 1V portable [id number] Impression: 1. Right lower lobe opacity which may represent atelectasis, pneumonia or less likely effusion. 2. Cardiomegaly and atherosclerosis.
[2024-08-24 10:56] LABS: Glucose Point of Care 244 mg/dL (70-110)
[2024-08-24] MEDS: dexamethasone 4 mg/mL INJ 6 MG IVP (12:09)
--- NOTE | 2024-08-24 15:15 | P.PN_ITS ---
Subjective 2 Subjective: No acute events overnight. Today morning seen sitting comfortably in recliner. Saturating more than 92% on 2 L. Denies any nausea counting, headache. States she is feeling better. Seems more awake today but continues to remain slow to respond. Vitals/I&O/Wt Last Vital Signs Temp 98.2 F 08/24/24 11:38 Pulse 79 08/24/24 14:03 Resp 20 H 08/24/24 14:03 BP 136/79 08/24/24 11:38 Pulse Ox 89 L 08/24/24 14:03 O2 Del Method Room Air 08/24/24 14:03 O2 Flow Rate 2 08/24/24 11:38 08/24/24 08/24/24 08/24/24 06:59 14:59 22:59 Intake Total 1000 / 1390 530 / 530 Output Total 550 / 2300 Balance 450 / -910 530 / 530 Weight last 48 hrs Weight 122.073 kg Weight 137.438 kg Weight 137.438 kg Weight 124.738 kg Physical Exam 2 Narrative: General: No acute distress, AO x3, morbidly obese, slow to respond, dehydrated HEENT: PERRLA, pupils bilaterally equal and reactive Chest: Bilateral bronchial breath sounds all over lung corley with occasional rhonchi, decreased air entry all over lung corley CVS: S1-S2 regular, no murmurs, no tachycardia, no gallops, no rubs Abdomen: Soft, nontender, no organomegaly, bowel sounds present Neuro: No focal deficits, no facial deformity, AO x3, power 5/5 in all limbs Urinary Catheter Management: Goodman: Cath Placed During This Visit: yes Reason for Continuing Indwelling Catheter: Acute Urinary Retention or Obstruction Urinary Catheter Date of Insertion: 08/22/24 Urinary Catheter Time of Insertion: 21:31 Data 08/23/24 06:55 08/23/24 06:55 Micro: Microbiology 08/23/24 13:11 Blood Culture - Preliminary Blood NEGATIVE TO DATE 08/22/24 20:31 Urine Culture - Preliminary Urine,Clean Catch 08/23/24 15:45 Blood Culture - Preliminary Blood SPECIMEN COLLECTED 08/22/24 18:02 Bacterial Antigens - Final Urine Kidney A&P Assessment and plan (1) Respiratory failure with hypoxia: (2) COVID-19: (3) Obstructive sleep apnea: (4) Atrial fibrillation: (5) Venous stasis: (6) Anticoagulation adequate with anticoagulant therapy: (7) Diabetes: (8) Obesity: (9) Recurrent UTI: (10) Back pain: (11) Chronic ischemia posterior cerebral artery stroke: Plan Respiratory failure with hypoxia: Desaturating down to mid 80s on room air. COVID-19: Hypoxia secondary to COVID-19 pneumonia: Mild to moderate disease. Oxygen supplementation keeping saturation over 88%. Dexamethasone 6 mg daily. Remdesivir to finish a 5-day course. Ipratropium and Xopenex every 6 hour, budesonide twice daily Pulmonary toilet with incentive spirometry flutter valve. We will monitor inflammatory markers including CRP every 48 hours. Check D-dimer. Patient already on full dose anticoagulation for stroke prevention with Eliquis. Check sputum culture, trend procalcitonin, check MRSA swab, bacterial antigen, blood culture. Concern for superimposed bacterial infection admission. Continue with IV ceftriaxone for now. Add azithromycin for atypical coverage. If MRSA swab is positive will add vancomycin. Given hypoxia will try to keep patient as negative as possible. Lasix as per fluid status. Slightly dehydrated now. Start on NS at 75 cc/h for 1 bag Strict input output charting, daily weights. Obstructive sleep apnea: Continue with home CPAP. UTI: Started on IV ceftriaxone. For now we will continue. Blood cultures not drawn. Will check. Follow-up urine culture. Atrial fibrillation: Currently in RVR. Continue with home dose of metoprolol. Takes Cardizem 240 mg twice daily at home. Started on Cardizem 60 mg every 6 hours. Uptitrate depending on blood pressures. Continue with home dose of Eliquis. Type 2 diabetes mellitus: Appreciate A1c. Patient seen sliding scale before meals and at bedtime. Increase Lantus to 40 units twice daily. Watch for hypoglycemia. CKD: Does have creatinine recently up to 1.3-1.5. Has gone as high as 2.1 back in February. Currently creatinine at baseline. Continue to monitor. Medical reconciliation done for nephrotoxic drugs. Full code Carb consistent diet Protonix OPD prophylaxis Eliquis will be sufficient for DVT prophylaxis. Plan for the day: Continue with IV dexamethasone and remdesivir. Oxygen supplementation keeping saturation more than 88%. Continue with normal saline for now. Patient is clinically dehydrated. Will watch for fluid overload. Follow-up blood culture and sputum culture. Sputum culture still not collected. Monitor CRP every 48 hours. Follow-up urine culture. Goal blood pressure less than 140/90 mmHg. Blood pressure is well-controlled for now. Heart rate well-controlled. For now continue with current dose of metoprolol and Cardizem. Continue with Eliquis. Blood sugars well-controlled. Continue with Lantus 40 units twice daily along with sliding scale. Creatinine remains at baseline of 1.3. DC Goodman catheter. Physical therapy. Attestations 2 Medical Necessity Statement*: Requires further hospitalization for management of hypoxia in setting of COVID- 19, UTI in a patient with baseline history of atrial fibrillation, CKD Diagnoses Respiratory failure with hypoxia J96.91 COVID-19 U07.1 Obstructive sleep apnea G47.33 Atrial fibrillation I48.91 Venous stasis I87.8 Anticoagulation adequate with anticoagulant therapy Z79.01 Diabetes E11.9 Obesity E66.9 Recurrent UTI N39.0 Back pain M54.9 Chronic ischemia posterior cerebral artery stroke I69.30
[2024-08-24 17:01] LABS: Glucose Point of Care 348 mg/dL (70-110)
[2024-08-24] MEDS: remdesivir 100 MG in sodium chloride 0.9% (100 ml) 100 ML IV (17:39)
[2024-08-24 19:53] LABS: Glucose Point of Care 477 mg/dL (70-110)
[2024-08-25] VITALS (11 sets, daily range): BP systolic 131–142; BP diastolic 76–83; PULSE 72–99; RESP 17–20; TEMP 36.4–37.1; O2SAT 90–94
[2024-08-25] MEDS: dilTIAZem 60 mg Tablet PO ×4 (00:28→18:21)
[2024-08-25] MEDS: ipratropium 0.5 mg/2.5 mL Neb INHALATION ×4 (02:43→20:00)
[2024-08-25] MEDS: levalbuterol 0.63 mg/3 mL Neb INHALATION ×4 (02:43→20:00)
[2024-08-25 06:35] LABS: Glucose Point of Care 319 mg/dL (70-110)
[2024-08-25] MEDS: oxybutynin chloride XL 5 MG TABLET 15 MG PO (09:43)
[2024-08-25] MEDS: metoprolol tartrate 25 mg Tablet 12.5 MG PO ×2 (09:43→18:21)
[2024-08-25] MEDS: zinc gluconate 50 mg Tablet PO (09:43)
[2024-08-25] MEDS: aspirin 81 mg EC Tablet PO (09:43)
[2024-08-25] MEDS: benzonatate 100 mg Capsule PO ×3 (09:43→20:49)
[2024-08-25] MEDS: apixaban 5 mg Tablet PO ×2 (09:43→17:22)
[2024-08-25] MEDS: ezetimibe 10 mg Tablet PO (09:43)
[2024-08-25] MEDS: cefTRIAXone 1,000 MG in sodium chloride 0.9% (plus) 50 ML 100 MG IV (09:43)
[2024-08-25] MEDS: insulin lispro 100 unit/1 mL SUBCUT ×4 (09:44→20:54)
[2024-08-25] MEDS: insulin glargine 100 units/1 mL 40 UNIT SUBCUT (10:39)
[2024-08-25 10:49] LABS: Glucose Point of Care 422 mg/dL (70-110)
[2024-08-25] MEDS: insulin glargine 100 units/1 mL 20 UNIT SUBCUT (12:22)
[2024-08-25] MEDS: dexamethasone 4 mg/mL INJ 6 MG IVP (12:22)
[2024-08-25 13:28] LABS: Basophils % 0.3 %; Hematocrit 51.4 % (36-47); Lymphocytes # 0.7 10^3/uL (0.8-4.8); Lymphocytes % 9.7 %; Mean Corpuscular HGB Conc 31.5 g/dL (30-55); Mean Corpuscular Hemoglobin 27.7 pg (27-33); Mean Platelet Volume 11.7 fL (7.4-10.4); Monocytes # 0.6 10^3/uL (0.2-0.9); Monocytes % 8.2 %; Neutrophils # 6.21 10^3/uL (1.8-7.7); Nucleated Red Blood Cells % 0 %; Platelet Count 215 10^3/cmm (157-399); Red Blood Count 5.84 10^6/uL (3.85-5.65); Red Cell Distribution Width 14.6 % (12.1-15.1); White Blood Count 7.66 10^3/uL (3.29-11.43)
[2024-08-25 13:47] LABS: Alanine Aminotransferase 27 U/L (0-33); Albumin Level 3.3 g/dL (3.5-5.2); Alkaline Phosphatase 71 U/L (35-105); Anion Gap 17.4 (5-19); Aspartate Amino Transferase 23 U/L (0-32); Blood Urea Nitrogen 44 mg/dL (8-23); C Reactive Protein 54.6 mg/L (0.0-4.9); Calcium 8.6 mg/dL (8.5-10.5); Carbon Dioxide 22 mmol/L (22-29); Chloride 103 mmol/L (98-107); Creatinine Clr Calc Pharmacy 62.6088; Globulin 3.5 g/dL (1.3-4.6); Glucose 332 mg/dL (65-115); Magnesium 2.3 mg/dL (1.7-2.3); Osmolality Calculated 310 mOsm/kg (285-295); Potassium 4.4 mmol/L (3.5-5.1); Sodium 138 mmol/L (136-145); Total Bilirubin 0.5 mg/dL (0.15-1.2); Total Protein 6.8 g/dL (6.6-8.7)
--- NOTE | 2024-08-25 14:17 | P.PN_ITS ---
Subjective 2 Subjective: No acute vents overnight. Patient seen sitting comfortably in recliner. On 3 to 3-1/2 L of oxygen supplementation saturating more than 90%. States breathing is stable to slightly better. States not feeling out of breath. Blood pressures improving. Vitals/I&O/Wt Last Vital Signs Temp 98.8 F 08/25/24 11:20 Pulse 87 08/25/24 13:48 Resp 20 H 08/25/24 13:48 BP 142/76 08/25/24 11:20 Pulse Ox 92 08/25/24 13:48 O2 Del Method Nasal Cannula 08/25/24 13:48 O2 Flow Rate 3.5 08/25/24 13:48 08/24/24 08/25/24 08/25/24 22:59 06:59 14:59 Intake Total 460 / 990 288 / 288 Output Total 1200 / 1200 Balance -740 / -210 288 / 288 Weight last 48 hrs Weight 122.073 kg Physical Exam 2 Narrative: General: No acute distress, AO x3, morbidly obese, slow to respond, dehydrated HEENT: PERRLA, pupils bilaterally equal and reactive Chest: Bilateral bronchial breath sounds all over lung corley with occasional rhonchi, decreased air entry all over lung corley CVS: S1-S2 regular, no murmurs, no tachycardia, no gallops, no rubs Abdomen: Soft, nontender, no organomegaly, bowel sounds present Neuro: No focal deficits, no facial deformity, AO x3, power 5/5 in all limbs Urinary Catheter Management: Goodman: Cath Placed During This Visit: yes, but has since been removed by the nurse Reason for Continuing Indwelling Catheter: Acute Urinary Retention or Obstruction Urinary Catheter Date of Insertion: 08/22/24 Urinary Catheter Time of Insertion: 21:31 Date Urinary Catheter Removed: 08/24/24 Time Urinary Catheter Discontinued: 15:39 Data 08/25/24 13:15 08/25/24 13:15 Micro: Microbiology 08/22/24 20:31 Urine Culture - Final Urine,Clean Catch 08/23/24 15:45 Blood Culture - Preliminary Blood NEGATIVE TO DATE 08/23/24 13:11 Blood Culture - Preliminary Blood NEGATIVE TO DATE A&P Assessment and plan (1) Respiratory failure with hypoxia: (2) COVID-19: (3) Obstructive sleep apnea: (4) Atrial fibrillation: (5) Venous stasis: (6) Anticoagulation adequate with anticoagulant therapy: (7) Diabetes: (8) Obesity: (9) Recurrent UTI: (10) Back pain: (11) Chronic ischemia posterior cerebral artery stroke: Plan Respiratory failure with hypoxia: Desaturating down to mid 80s on room air. COVID-19: Hypoxia secondary to COVID-19 pneumonia: Mild to moderate disease. Oxygen supplementation keeping saturation over 88%. Dexamethasone 6 mg daily. Remdesivir to finish a 5-day course. Ipratropium and Xopenex every 6 hour, budesonide twice daily Pulmonary toilet with incentive spirometry flutter valve. We will monitor inflammatory markers including CRP every 48 hours. Check D-dimer. Patient already on full dose anticoagulation for stroke prevention with Eliquis. Check sputum culture, trend procalcitonin, check MRSA swab, bacterial antigen, blood culture. Concern for superimposed bacterial infection admission. Continue with IV ceftriaxone for now. Add azithromycin for atypical coverage. If MRSA swab is positive will add vancomycin. Given hypoxia will try to keep patient as negative as possible. Lasix as per fluid status. Slightly dehydrated now. Start on NS at 75 cc/h for 1 bag Strict input output charting, daily weights. Obstructive sleep apnea: Continue with home CPAP. UTI: Started on IV ceftriaxone. For now we will continue. Blood cultures not drawn. Will check. Follow-up urine culture. Atrial fibrillation: Currently in RVR. Continue with home dose of metoprolol. Takes Cardizem 240 mg twice daily at home. Started on Cardizem 60 mg every 6 hours. Uptitrate depending on blood pressures. Continue with home dose of Eliquis. Type 2 diabetes mellitus: Appreciate A1c. Patient seen sliding scale before meals and at bedtime. Increase Lantus to 40 units twice daily. Watch for hypoglycemia. CKD: Does have creatinine recently up to 1.3-1.5. Has gone as high as 2.1 back in February. Currently creatinine at baseline. Continue to monitor. Medical reconciliation done for nephrotoxic drugs. Full code Carb consistent diet Protonix OPD prophylaxis Eliquis will be sufficient for DVT prophylaxis. Plan for the day: Continue with IV dexamethasone and remdesivir. Will finish a 5-day course of remdesivir. Dexamethasone for overall 10-day course. Nebulization treatment with Pulmicort and ipratropium, Xopenex. Continue IV ceftriaxone with concern for possible community-acquired pneumonia and UTI. Follow-up cultures. Heart rate stable. Continue with Cardizem 60 mg Q6 hourly. Blood pressures have been at goal of less than 140/90 mmHg. Blood sugars elevated. Increase Lantus to 60 units twice daily. Will give her 20 units Lantus extra to make it 60 for the morning dose. Change sliding scale to high-dose. If blood sugars continue to remain elevated will plan to change high-dose insulin sliding scale to every 6 hours. Attestations 2 Medical Necessity Statement*: Requires further hospitalization for management of hypoxic respiratory failure in setting of COVID-19 pneumonia, community-acquired pneumonia, uncontrolled type 2 diabetes mellitus Diagnoses Respiratory failure with hypoxia J96.91 COVID-19 U07.1 Obstructive sleep apnea G47.33 Atrial fibrillation I48.91 Venous stasis I87.8 Anticoagulation adequate with anticoagulant therapy Z79.01 Diabetes E11.9 Obesity E66.9 Recurrent UTI N39.0 Back pain M54.9 Chronic ischemia posterior cerebral artery stroke I69.30
[2024-08-25 16:46] LABS: Glucose Point of Care 364 mg/dL (70-110)
[2024-08-25] MEDS: insulin glargine 100 units/1 mL 60 UNIT SUBCUT (17:22)
[2024-08-25] MEDS: remdesivir 100 MG in sodium chloride 0.9% (100 ml) 100 ML IV (18:22)
[2024-08-25 20:35] LABS: Glucose Point of Care 346 mg/dL (70-110)
[2024-08-26] VITALS (13 sets, daily range): BP systolic 128–145; BP diastolic 77–92; PULSE 62–90; RESP 16–19; TEMP 36.4–37; O2SAT 88–95
[2024-08-26] MEDS: dilTIAZem 60 mg Tablet PO ×4 (00:59→17:43)
[2024-08-26] MEDS: levalbuterol 0.63 mg/3 mL Neb INHALATION ×4 (02:53→20:25)
[2024-08-26] MEDS: ipratropium 0.5 mg/2.5 mL Neb INHALATION ×4 (02:53→20:25)
[2024-08-26 06:25] LABS: Glucose Point of Care 225 mg/dL (70-110)
--- NOTE | 2024-08-26 10:00 | XR_ITS ---
WS: [id number] PORTABLE CHEST HISTORY: sob COMPARISON: 08/24/2024 Diffuse, mild to moderate pulmonary edema. Increased consolidation posterior to the LEFT heart. Pleur al-based nodule suspected at the RIGHT apex measuring 3.1 cm. RIGHT upper lobe pleural nodule was dayo ntified on a prior CT in 2019. No pleural effusion or pneumothorax. Cardiac size: Moderately enlarged cardiac silhouette. Mediastinum/Aorta: Mild atherosclerosis aorta. No osseous abnormality seen. XR/XR chest 1V portable [id number] IMPRESSION: 1. Mild to moderate pulmonary edema. 2. Cardiomegaly. 3. Increasing consolidation posterior to the LEFT heart. This may be atelectas is due to the heart shadow or developing pneumonia. 4. Long-term stability pleural-based mass in the RIGHT upper thorax.
[2024-08-26 10:50] LABS: Glucose Point of Care 327 mg/dL (70-110)
[2024-08-26 11:06] LABS: Lymphocytes # 0.7 10^3/uL (0.8-4.8); Lymphocytes % 10.9 %; Mean Corpuscular HGB Conc 30.9 g/dL (30-55); Mean Corpuscular Hemoglobin 27.8 pg (27-33); Monocytes # 0.7 10^3/uL (0.2-0.9); Monocytes % 10.4 %; Neutrophils # 5.31 10^3/uL (1.8-7.7); Neutrophils % 78.1 %; Nucleated Red Blood Cells % 0 %; Platelet Count 228 10^3/cmm (157-399); Red Blood Count 5.89 10^6/uL (3.85-5.65); Red Cell Distribution Width 14.5 % (12.1-15.1)
[2024-08-26 11:28] LABS: Alanine Aminotransferase 25 U/L (0-33); Albumin Level 3.2 g/dL (3.5-5.2); Alkaline Phosphatase 65 U/L (35-105); Anion Gap 19.6 (5-19); Aspartate Amino Transferase 18 U/L (0-32); Blood Urea Nitrogen 45 mg/dL (8-23); Calcium 8.8 mg/dL (8.5-10.5); Carbon Dioxide 21 mmol/L (22-29); Chloride 103 mmol/L (98-107); Creatinine Clr Calc Pharmacy 62.5921; Globulin 3.5 g/dL (1.3-4.6); Glucose 321 mg/dL (65-115); Magnesium 2.3 mg/dL (1.7-2.3); Osmolality Calculated 312 mOsm/kg (285-295); Potassium 4.6 mmol/L (3.5-5.1); Sodium 139 mmol/L (136-145); Total Bilirubin 0.7 mg/dL (0.15-1.2); Total Protein 6.7 g/dL (6.6-8.7)
[2024-08-26] MEDS: apixaban 5 mg Tablet PO ×2 (12:16→17:43)
[2024-08-26] MEDS: oxybutynin chloride XL 5 MG TABLET 15 MG PO (12:16)
[2024-08-26] MEDS: ezetimibe 10 mg Tablet PO (12:16)
[2024-08-26] MEDS: benzonatate 100 mg Capsule PO ×3 (12:16→21:38)
[2024-08-26] MEDS: aspirin 81 mg EC Tablet PO (12:16)
[2024-08-26] MEDS: guaiFENesin-dextromethorphan UDC 10 mL 5 ML PO (12:17)
[2024-08-26] MEDS: zinc gluconate 50 mg Tablet PO (12:17)
[2024-08-26] MEDS: metoprolol tartrate 25 mg Tablet 12.5 MG PO ×2 (12:17→17:43)
[2024-08-26] MEDS: cefTRIAXone 1,000 MG in sodium chloride 0.9% (plus) 50 ML 100 MG IV (12:17)
[2024-08-26] MEDS: dexamethasone 4 mg/mL INJ 6 MG IVP (12:18)
[2024-08-26] MEDS: insulin lispro 100 unit/1 mL SUBCUT ×3 (12:18→22:50)
[2024-08-26] MEDS: pantoprazole 40 mg SDV IVP (12:18)
[2024-08-26] MEDS: insulin glargine 100 units/1 mL 60 UNIT SUBCUT (12:18)
--- NOTE | 2024-08-26 12:43 | PC.SOCIAL ---
IMM Updated Updated pt on IMM. No questions voiced. Provided pt a copy. Initialed, dated, & timed a copy & placed in chart.
--- NOTE | 2024-08-26 14:30 | P.PN_ITS ---
Subjective 2 Subjective: No acute events overnight. Patient has remained hemodynamically stable and afebrile. Continues to require up to 3 L of oxygen supplementation. Sitting up in chair. Denies any nausea, vomiting, headache. Worked with physical therapy. Having urinary incontinence with cough. Complaining of dyspepsia. Vitals/I&O/Wt Last Vital Signs Temp 98.6 F 08/26/24 11:43 Pulse 90 08/26/24 13:44 Resp 16 08/26/24 13:39 BP 145/92 08/26/24 11:43 Pulse Ox 88 L 08/26/24 13:50 O2 Del Method Room Air 08/26/24 13:39 O2 Flow Rate 3 08/26/24 13:50 08/25/24 08/26/24 08/26/24 22:59 06:59 14:59 Intake Total 340 / 628 360 / 988 410 / 410 Balance 340 / 628 360 / 988 410 / 410 Weight last 48 hrs Weight 122.016 kg Physical Exam 2 Narrative: General: No acute distress, AO x3, morbidly obese, slow to respond, dehydrated HEENT: PERRLA, pupils bilaterally equal and reactive Chest: Bilateral bronchial breath sounds all over lung corley with occasional rhonchi, decreased air entry all over lung corley CVS: S1-S2 regular, no murmurs, no tachycardia, no gallops, no rubs Abdomen: Soft, nontender, no organomegaly, bowel sounds present Neuro: No focal deficits, no facial deformity, AO x3, power 5/5 in all limbs Urinary Catheter Management: Goodman: Cath Placed During This Visit: yes, but has since been removed by the nurse Reason for Continuing Indwelling Catheter: Acute Urinary Retention or Obstruction Urinary Catheter Date of Insertion: 08/22/24 Urinary Catheter Time of Insertion: 21:31 Date Urinary Catheter Removed: 08/24/24 Time Urinary Catheter Discontinued: 15:39 Data 08/26/24 10:47 08/26/24 10:47 Micro: Microbiology 08/22/24 20:31 Urine Culture - Final Urine,Clean Catch A&P Assessment and plan (1) Respiratory failure with hypoxia: (2) COVID-19: (3) Obstructive sleep apnea: (4) Atrial fibrillation: (5) Venous stasis: (6) Anticoagulation adequate with anticoagulant therapy: (7) Diabetes: (8) Obesity: (9) Recurrent UTI: (10) Back pain: (11) Chronic ischemia posterior cerebral artery stroke: Plan Respiratory failure with hypoxia: Desaturating down to mid 80s on room air. COVID-19: Hypoxia secondary to COVID-19 pneumonia: Mild to moderate disease. Oxygen supplementation keeping saturation over 88%. Dexamethasone 6 mg daily. Remdesivir to finish a 5-day course. Ipratropium and Xopenex every 6 hour, budesonide twice daily Pulmonary toilet with incentive spirometry flutter valve. We will monitor inflammatory markers including CRP every 48 hours. Check D-dimer. Patient already on full dose anticoagulation for stroke prevention with Eliquis. Check sputum culture, trend procalcitonin, check MRSA swab, bacterial antigen, blood culture. Concern for superimposed bacterial infection admission. Continue with IV ceftriaxone for now. Add azithromycin for atypical coverage. If MRSA swab is positive will add vancomycin. Given hypoxia will try to keep patient as negative as possible. Lasix as per fluid status. Slightly dehydrated now. Start on NS at 75 cc/h for 1 bag Strict input output charting, daily weights. Obstructive sleep apnea: Continue with home CPAP. UTI: Started on IV ceftriaxone. For now we will continue. Blood cultures not drawn. Will check. Follow-up urine culture. Atrial fibrillation: Currently in RVR. Continue with home dose of metoprolol. Takes Cardizem 240 mg twice daily at home. Started on Cardizem 60 mg every 6 hours. Uptitrate depending on blood pressures. Continue with home dose of Eliquis. Type 2 diabetes mellitus: Appreciate A1c. Patient seen sliding scale before meals and at bedtime. Increase Lantus to 40 units twice daily. Watch for hypoglycemia. CKD: Does have creatinine recently up to 1.3-1.5. Has gone as high as 2.1 back in February. Currently creatinine at baseline. Continue to monitor. Medical reconciliation done for nephrotoxic drugs. Full code Carb consistent diet Protonix OPD prophylaxis Eliquis will be sufficient for DVT prophylaxis. Plan for the day: Urine culture have remained negative. Continue with IV remdesivir to finish a 5-day course. Oral dexamethasone for overall 10-day course. Oxygen supplementation keeping saturation more than 90%. IV Lasix 40 mg one-time. Continue with Tessalon Perles 3 times daily. Add Robitussin 5 cc every 4 hours as needed. Oxygen supplementation keeping saturation more than 90%. Continue nebulization treatment. Heart rate stable. Continue with current dose of Cardizem. Blood sugars elevated. Lantus increased to 80 units twice daily. Continue with current sliding scale. Overall patient has received 120 units Humalog in last 24 hours along with 60 twice daily of Lantus. At home it seems patient takes 80 units of Lantus nightly along with 40 units 3 times daily of Humalog. Working well with physical therapy. Discharge plan: Can plan to discharge back home with oxygen after home O2 evaluation after patient has completed 5-day course of remdesivir. Attestations 2 Medical Necessity Statement*: Requires further hospitalization for management of hypoxia in setting of COVID- 19 Diagnoses Respiratory failure with hypoxia J96.91 COVID-19 U07.1 Obstructive sleep apnea G47.33 Atrial fibrillation I48.91 Venous stasis I87.8 Anticoagulation adequate with anticoagulant therapy Z79.01 Diabetes E11.9 Obesity E66.9 Recurrent UTI N39.0 Back pain M54.9 Chronic ischemia posterior cerebral artery stroke I69.30
[2024-08-26 16:26] LABS: Glucose Point of Care 263 mg/dL (70-110)
[2024-08-26] MEDS: FUROsemide 10 mg/mL SDV 4mL 40 MG IVP (17:43)
[2024-08-26] MEDS: insulin glargine 100 units/1 mL 80 UNIT SUBCUT (17:44)
[2024-08-26] MEDS: remdesivir 100 MG in sodium chloride 0.9% (100 ml) 100 ML IV (17:45)
[2024-08-26 21:20] LABS: Glucose Point of Care 406 mg/dL (70-110)
[2024-08-27] VITALS: BP 156/84; PULSE 68; RESP 15; TEMP 36.6; O2SAT 95
[2024-08-27 04:00] VITALS: BP 132/88; PULSE 70; RESP 19; TEMP 36.5; O2SAT 95
[2024-08-27] MEDS: dilTIAZem 60 mg Tablet PO ×2 (05:31→08:59)
[2024-08-27 06:52] LABS: Glucose Point of Care 251 mg/dL (70-110)
[2024-08-27 07:18] VITALS: PULSE 71; RESP 18; O2SAT 94
[2024-08-27] MEDS: levalbuterol 0.63 mg/3 mL Neb INHALATION (07:18)
[2024-08-27] MEDS: ipratropium 0.5 mg/2.5 mL Neb INHALATION (07:18)
[2024-08-27 07:26] VITALS: BP 132/78; PULSE 72; RESP 16; O2SAT 99
[2024-08-27 07:28] VITALS: PULSE 75
[2024-08-27] MEDS: insulin lispro 100 unit/1 mL SUBCUT ×2 (08:57→12:07)
[2024-08-27] MEDS: pantoprazole 40 mg SDV IVP (08:57)
[2024-08-27] MEDS: insulin glargine 100 units/1 mL 80 UNIT SUBCUT (08:57)
[2024-08-27] MEDS: oxybutynin chloride XL 5 MG TABLET 15 MG PO (08:59)
[2024-08-27] MEDS: ezetimibe 10 mg Tablet PO (08:59)
[2024-08-27] MEDS: metoprolol tartrate 25 mg Tablet 12.5 MG PO (08:59)
[2024-08-27] MEDS: zinc gluconate 50 mg Tablet PO (08:59)
[2024-08-27] MEDS: cefTRIAXone 1,000 MG in sodium chloride 0.9% (plus) 50 ML 100 MG IV (08:59)
[2024-08-27] MEDS: apixaban 5 mg Tablet PO (08:59)
[2024-08-27] MEDS: benzonatate 100 mg Capsule PO (08:59)
[2024-08-27] MEDS: aspirin 81 mg EC Tablet PO (08:59)
[2024-08-27] MEDS: remdesivir 100 MG in sodium chloride 0.9% (100 ml) 100 ML IV (10:17)
[2024-08-27 12:00] VITALS: BP 143/97; PULSE 74; O2SAT 96
[2024-08-27] MEDS: dexamethasone 4 mg/mL INJ 6 MG IVP (12:07)
[2024-08-27 12:08] LABS: Glucose Point of Care 221 mg/dL (70-110)
--- NOTE | 2024-08-27 12:53 | PM.DCS ---
Discharge Providers Date of Admission: 08/23/24 10:26 Date of Discharge: August 27, 2024 Attending Provider at Admission: Belkys Babin MD Attending Provider at Discharge: Aldo Mckinney MD Primary Care Provider: Ajay Robertson DO Diagnoses at Discharge Discharge Diagnosis (1) Respiratory failure with hypoxia: Status: Acute (2) COVID-19: Status: Acute (3) Obstructive sleep apnea: Status: Acute (4) Atrial fibrillation: Status: Acute (5) Venous stasis: Status: Acute (6) Anticoagulation adequate with anticoagulant therapy: Status: Acute (7) Diabetes: Status: Acute (8) Obesity: Status: Acute (9) Recurrent UTI: Status: Acute (10) Back pain: Status: Acute (11) Chronic ischemia posterior cerebral artery stroke: Status: Acute Permanent problem details: This patient has a 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 She has chronic atrial fibrillation, morbid obesity, poorly controlled diabetes with poor compliance on diet, hypertension that is under poor control and recurrent episodes that have brought her to the emergency department with transient neurologic symptoms and no residual. She has chronic findings of right homonymous hemianopsia from her previous left posterior cerebral artery stroke. Her is heavily invested in her care and motivated to help her with compliance on diet and exercise. She was recently started on Zetia. Her blood pressure and lipids will be managed by Dr. Wilson. I have nothing further to add. Her is very concerned that she is not keeping up with her fluids and I advise she should drink water at an appropriate amount. Getting her off of hydrochlorothiazide will probably help. I have nothing further to add. Reason for Visit Reason for Visit: generalized weakness, flu like symptoms Brief History: History as per HPI: Kay Munroe is a 74 year old female history of rt-sided visual field deficit from previous stroke chronic anticoagulation, A-fib, diabetes, chronic back pain who presented to hospital for worsening generalized weakness and discomfort secondary to her viral illness. Patient stating that she has been sick for last 2 weeks she has not taken temperature but endorsing subjective fever, she is not endorsing chest pain, diarrhea abdominal pain or vomiting. Stating that p.o. intake has been poor. is also sick with COVID-19, is not able to take care of her requesting admission in the hospital, patient is afebrile not quitting oxygen, patient is stating that she has MRI of lower back appointment tomorrow which she wants to keep and get it done before further plan could be made. Workup consistent with acute on chronic kidney disease and UTI Goodman catheter was placed which is showing turbid colored urine, x-ray remarkable Patient uses a walker to ambulate at home, Hospital Course Hospital Course Patient was admitted to the hospital further evaluation and management of hypoxia in setting of COVID-19. She was started on treatment with IV remdesivir, steroids and inhalation treatment. There is also concern for community-acquired pneumonia for which she was started on broad-spectrum antibiotics. Patient responded well to the treatment. She is requiring up to 2 to 3 L of oxygen supplementation which has remained stable. Home O2 evaluation was done prior to discharge. She has finished 5-day course of remdesivir. During hospitalization her blood sugars were running high for which her dose of insulin was adjusted which is in setting of steroids. On admission she was also found to be hypotensive and bradycardic for which her dose of lisinopril has been decreased to 20 mg oral daily along with decrease in dose of Cardizem 240 mg oral daily. She has been discharged in hemodynamically stable condition on oxygen, oral steroid for 1 more week along with inhalation treatment for next 2 weeks with advised to follow-up with a primary care provider within next 2 weeks. Physical Exam Narrative: General: No acute distress, AO x3, morbidly obese, slow to respond, dehydrated HEENT: PERRLA, pupils bilaterally equal and reactive Chest: Bilateral bronchial breath sounds all over lung corley with occasional rhonchi, decreased air entry all over lung corley CVS: S1-S2 regular, no murmurs, no tachycardia, no gallops, no rubs Abdomen: Soft, nontender, no organomegaly, bowel sounds present Neuro: No focal deficits, no facial deformity, AO x3, power 5/5 in all limbs Urinary Catheter Management: Goodman: Cath Placed During This Visit: yes, but has since been removed by the nurse Reason for Continuing Indwelling Catheter: Acute Urinary Retention or Obstruction Urinary Catheter Date of Insertion: 08/22/24 Urinary Catheter Time of Insertion: 21:31 Date Urinary Catheter Removed: 08/24/24 Time Urinary Catheter Discontinued: 15:39 Discharge Data Studies Completed and Pending Completed Studies During Hospitalization Category Date Time Status XR chest 1V portable [id number] Q48H Exams 08/24/24 10:00 Completed XR chest 1V portable [id number] Q48H Exams 08/26/24 10:00 Completed XR chest 1V portable [id number] Stat Exams 08/22/24 17:42 Completed Pending at discharge Category Date Time Status Blood Culture Stat Lab 08/23/24 15:45 Results Complete Blood Count w/Auto AM LABS Lab 08/27/24 12:45 Results Comprehensive Metabolic Panel AM LABS Lab 08/27/24 04:00 Ordered Magnesium AM LABS Lab 08/27/24 04:00 Ordered Sputum Culture and Gram Stain Stat Lab 08/23/24 12:29 Uncollected Radiology Impressions Chest X-Ray 08/26/24 10:00 IMPRESSION: 1. Mild to moderate pulmonary edema. 2. Cardiomegaly. 3. Increasing consolidation posterior to the LEFT heart. This may be atelectasis due to the heart shadow or developing pneumonia. 4. Long-term stability pleural-based mass in the RIGHT upper thorax. Microbiology 08/22/24 20:31 Urine,Clean Catch Urine Culture - Final 08/23/24 15:45 Blood Blood Culture - Preliminary NEGATIVE TO DATE 08/23/24 13:11 Blood Blood Culture - Preliminary NEGATIVE TO DATE 08/22/24 18:02 Urine Kidney Bacterial Antigens - Final Laboratory Results WBC 6.80 10^3/uL (3.29-11.43) 08/26/24 10:47 Corrected WBC Cancelled 08/23/24 05:00 RBC 5.89 10^6/uL (3.85-5.65) H 08/26/24 10:47 Hgb 16.40 g/dL (11.27-16.99) 08/26/24 10:47 Hct 53.0 % (36-47) H 08/26/24 10:47 MCV 90.0 fl (85-98) 08/26/24 10:47 MCH 27.8 pg (27-33) 08/26/24 10:47 MCHC 30.9 g/dL (30-55) 08/26/24 10:47 RDW 14.5 % (12.1-15.1) 08/26/24 10:47 Plt Count 228 10^3/cmm (157-399) 08/26/24 10:47 MPV 12.0 fL (7.4-10.4) H 08/26/24 10:47 Gran % Cancelled 08/23/24 05:00 Neut % (Auto) 78.1 % 08/26/24 10:47 Lymph % (Auto) 10.9 % 08/26/24 10:47 Andrews % (Auto) 10.4 % 08/26/24 10:47 Eos % (Auto) 0.0 % 08/26/24 10:47 Baso % (Auto) 0.0 % 08/26/24 10:47 Neut # (Auto) 5.31 10^3/uL (1.8-7.7) 08/26/24 10:47 Lymph # (Auto) 0.7 10^3/uL (0.8-4.8) L 08/26/24 10:47 Andrews # (Auto) 0.7 10^3/uL (0.2-0.9) 08/26/24 10:47 Eos # (Auto) 0.0 10^3/uL (0.0-0.8) 08/26/24 10:47 Baso # (Auto) 0.0 10^3/uL (0.0-0.1) 08/26/24 10:47 Absolute Gran (auto) Cancelled 08/23/24 05:00 Nucleated RBC % (auto) 0 % 08/26/24 10:47 Nucleated RBCs # 0.0 /100WBC 08/26/24 10:47 Sodium 139 mmol/L (136-145) 08/26/24 10:47 Potassium 4.6 mmol/L (3.5-5.1) 08/26/24 10:47 Chloride 103 mmol/L (98-107) 08/26/24 10:47 Carbon Dioxide 21 mmol/L (22-29) L 08/26/24 10:47 Anion Gap 19.6 (5-19) H 08/26/24 10:47 BUN 45 mg/dL (8-23) H 08/26/24 10:47 Creatinine 1.1 mg/dL (0.5-0.9) H 08/26/24 10:47 GFR Calculation Not Reportable 08/26/24 10:47 Glucose 321 mg/dL (65-115) H 08/26/24 10:47 POC Glucose 221 mg/dL (70-110) H 08/27/24 12:02 Calculated Osmolality 312 mOsm/kg (285-295) H 08/26/24 10:47 Calcium 8.8 mg/dL (8.5-10.5) 08/26/24 10:47 Phosphorus 3.4 mg/dL (2.5-4.5) 08/23/24 06:55 Magnesium 2.3 mg/dL (1.7-2.3) 08/26/24 10:47 Total Bilirubin 0.7 mg/dL (0.15-1.2) 08/26/24 10:47 AST 18 U/L (0-32) 08/26/24 10:47 ALT 25 U/L (0-33) 08/26/24 10:47 Alkaline Phosphatase 65 U/L (35-105) 08/26/24 10:47 C-Reactive Protein 54.6 mg/L (0.0-4.9) H 08/25/24 13:15 Total Protein 6.7 g/dL (6.6-8.7) 08/26/24 10:47 Albumin 3.2 g/dL (3.5-5.2) L 08/26/24 10:47 Globulin 3.5 g/dL (1.3-4.6) 08/26/24 10:47 Procalcitonin 0.17 ng/mL (0-0.5) 08/23/24 06:55 Procalcitonin Cancelled 08/23/24 06:55 Urine Color Yellow (Yellow) 08/22/24 20: Urine Appearance Cloudy (CLEAR) A 08/22/24 20: Urine pH 5.5 (5-7) 08/22/24 20:31 Ur Specific [place] 1.018 (1.005-1.030) 08/22/24 20:31 Urine Protein 1+ (Negative) A 08/22/24 20: Urine Glucose (UA) 2+ (Normal) H 08/22/24 20:31 Urine Ketones Negative (Negative) 08/22/24 20: Urine Blood 3+ (Negative) A 08/22/24 20: Urine Nitrate Negative (Negative) 08/22/24 20: Urine Bilirubin Negative (Negative) 08/22/24 20: Urine Urobilinogen 0.2 mg/dL (Negative) 08/22/24 20:31 Ur Leukocyte Esterase 2+ (Negative) A 08/22/24 20:31 Urine RBC 6-10 /hpf (0-2) 08/22/24 20:31 Urine WBC >100 /hpf (0-5) H 08/22/24 20:31 Ur Squamous Epith Cells 0-5 /hpf (0-5) 08/22/24 20:31 Amorphous Sediment Not Reportable 08/22/24 20:31 Urine Bacteria None seen /hpf (NONE) 08/22/24 20:31 Hyaline Casts 0.81 /lpf 08/22/24 20:31 Urine Yeast 1+ /hpf H 08/22/24 20:31 Nasal MRSA (PCR) Not detected (Not Detecte) 08/23/24 13:48 Adenovirus (PCR) Not detected (NOT DETECT) 08/22/24 17:50 C. pneumoniae DNA (PCR) Not detected (NOT DETECT) 08/22/24 17:50 Coronavirus 229E (PCR) Not detected (NOT DETECT) 08/22/24 17:50 Human Metapneumovir PCR Not detected (NOT DETECT) 08/22/24 17:50 Influenza A (H1) PCR Not detected (NOT DETECT) 08/22/24 17:50 Influ A (H1/09) PCR Not detected (NOT DETECT) 08/22/24 17:50 Influenza A (H3) PCR Not detected (NOT DETECT) 08/22/24 17:50 Influenza Type A (PCR) Not detected (NOT DETECT) 08/22/24 17:50 Influenza Type B (PCR) Not detected (NOT DETECT) 08/22/24 17:50 M. pneumoniae (PCR) Not detected (NOT DETECT) 08/22/24 17:50 Parainfluenza 1 (PCR) Not detected (NOT DETECT) 08/22/24 17:50 Parainfluenza 2 (PCR) Not detected (NOT DETECT) 08/22/24 17:50 Parainfluenza 3 (PCR) Not detected (NOT DETECT) 08/22/24 17:50 Parainfluenza 4 (PCR) Not detected (NOT DETECT) 08/22/24 17:50 RSV Type A (PCR) Not detected (NOT DETECT) 08/22/24 17:50 RSV Type B (PCR) Not detected (NOT DETECT) 08/22/24 17:50 Entero/Rhino (PCR) Not detected (NOT DETECT) 08/22/24 17:50 SARS-CoV-2 (PCR) Detected (NOT DETECT) A 08/22/24 17:50 Vitals Last Vital Signs Temp 97.7 F 08/27/24 04:00 Pulse 74 08/27/24 12:00 Resp 16 08/27/24 07:26 BP 143/97 08/27/24 12:00 Pulse Ox 96 08/27/24 12:00 O2 Del Method Nasal Cannula 08/27/24 12:00 O2 Flow Rate 2 08/27/24 12:00 Discharge Plan Discharge Patient Disposition: Home Condition: Stable Prescriptions: New pantoprazole [Protonix] 40 mg tablet,delayed release (DR/EC) 40 mg PO QAM Qty: 60 0RF Rx Instructions: Twice daily for next 2 weeks followed by once daily dexamethasone 6 mg tablet 6 mg PO Q24H Qty: 5 0RF Rx Instructions: for up to 10 days fluticasone propion-salmeterol [Advair Diskus] 250-50 mcg/dose blister with device 1 inh inhalation Q12H Qty: 60 0RF Spiriva Respimat 2.5 mcg/actuation mist 2 inh inhalation QAM Qty: 4 0RF Continued cyclobenzaprine 5 mg tablet 5 mg PO BID PRN (Reason: Muscle Spasm) loratadine [Claritin] 10 mg tablet 10 mg PO DAILY PRN (Reason: ALLERGIES) oxybutynin chloride 15 mg tablet extended release 24hr 15 mg PO DAILY metoprolol tartrate 25 mg tablet 12.5 mg PO BID Jardiance 25 mg tablet 25 mg PO QAM (DME) cpap See Rx Instructions .Route .MEDSUPPLY Qty: 1 0RF Rx Instructions: As directed Eliquis 5 mg tablet 5 mg PO BID Qty: 180 3RF bupropion HCl 75 mg tablet 75 mg PO BID Qty: 180 3RF Hold Instructions: Resume on 03/14/24. aspirin 81 mg Tablet,Delayed Release (Dr/Ec) 81 mg PO DAILY insulin aspart U-100 100 unit/mL (3 mL) Insulin Pen 40 unit SUBCUT TID insulin glargine-yfgn 100 unit/mL (3 mL) Insulin Pen 80 unit SUBCUT QPM Rx Instructions: 80 units at bedtime at the same time each day Changed diltiazem HCl 240 mg Capsule,Extended Release 24 Hr 240 mg PO DAILY Qty: 30 0RF lisinopril 40 mg Tablet 20 mg PO DAILY Qty: 30 0RF Discharge Orders: Discharge Order (Routine); Ordered 08/27/24 Ordered By: Aldo Mckinney Other Ambulatory Orders: DME: Oxygen (Order) Location: None Selected Ordered By: Aldo Mckinney Referrals: [facility] [place] [Outside] Ajay Robertson DO [Primary Care Provider] - 2 weeks (We have notified your physician's clinic of the need for a follow-up appointment to be scheduled. If you have not heard from them within the next 2 business days, please call them directly. ) Discharge Diet: Cardiac and Diabetic Discharge Activity: Resume usual activity and Increase activity as tolerated Patient Instructions: Acute Kidney Injury (DC), Urinary Tract Infection in Women (DC), Hypoxia (ED), COVID-19 (Coronavirus Disease 2019) (DC), Opioid Safety, Using Oxygen at Home Activity Restrictions/Additional Instructions: Advised to take inhalation treatment with Advair and Spiriva daily. Advised to continue working with incentive spirometry and flutter valve while at home. Advised to continue taking dexamethasone 6 mg for next 5 days. Advised to follow-up with his primary care provider within the next 4 to 7 days. Can take COVID-19 vaccination in 3 months. Advised to continue following social distancing and isolation protocol for next 10 days. Advised to come back to the ER if fever of more than 101 Fahrenheit, more difficulty breathing than usual or requiring higher oxygen supplementation. Dose of your Cardizem has been decreased to 240 mg once daily. Lisinopril has been decreased to 20 mg oral daily. Please check your blood pressures daily at home and maintain a blood pressure diary and follow-up with a primary care provider within next 2 weeks for further adjustment of antihypertensives. Also keep checking your blood sugars daily 3 times a day before meals and follow-up with a primary care provider for further adjustment of your antidiabetic medications. Discharge Attestations Time Spent in Discharge Care*: greater than 30 min Specific Discharge Activities: educating patient, discussing with pcp/other providers, discussing with correctional case manager/social workers/dc planners, documenting/other paperwork and evaluating patient/reviewing data Status at Discharge: Cognitive status at discharge: cognitively intact, Behavioral status at discharge: cooperative, Functional status at discharge: uses cane/walker, Overall status at discharge: patient is back to baseline Quality Metrics Clinical Quality Measures [ No reported AMI, CVA or VTE this stay] Coding Level of Care Code 15519 Total time (in minutes) for Discharge: 60 Diagnoses Respiratory failure with hypoxia J96.91 COVID-19 U07.1 Obstructive sleep apnea G47.33 Atrial fibrillation I48.91 Venous stasis I87.8 Anticoagulation adequate with anticoagulant therapy Z79.01 Diabetes E11.9 Obesity E66.9 Recurrent UTI N39.0 Back pain M54.9 Chronic ischemia posterior cerebral artery stroke I69.30
[2024-08-27 12:59] LABS: Basophils # 0.1 10^3/uL (0.0-0.1); Basophils % 0.6 %; Hematocrit 62.2 % (36-47); Lymphocytes # 1.3 10^3/uL (0.8-4.8); Lymphocytes % 11.5 %; Mean Corpuscular HGB Conc 29.3 g/dL (30-55); Mean Corpuscular Hemoglobin 28.1 pg (27-33); Mean Platelet Volume 11.5 fL (7.4-10.4); Monocytes # 1.4 10^3/uL (0.2-0.9); Monocytes % 12.9 %; Neutrophils # 8.09 10^3/uL (1.8-7.7); Neutrophils % 74.2 %; Nucleated Red Blood Cells % 0 %; Platelet Count 225 10^3/cmm (157-399); Red Blood Count 6.48 10^6/uL (3.85-5.65); Red Cell Distribution Width 14.7 % (12.1-15.1); White Blood Count 10.91 10^3/uL (3.29-11.43)
== END 2024-08-27 14:15 | disposition home or self-care (01) | DRG 177 ==
LOC: ER 21:13 → MEDSURG 21:33
PROVIDERS: Family Medicine; Admitting Provider Internal Medicine; Emergency Provider Emergency Medicine; PCP Family Medicine; Visit Provider Student in an Organized Health Care Education/Training Program
DX: U07.1 COVID-19 (principal); J96.91 Respiratory failure, unspecified with hypoxia; I48.20 Chronic atrial fibrillation, unspecified; N17.9 Acute kidney failure, unspecified; N39.0 Urinary tract infection, site not specified; Z68.41 Body mass index [BMI] 40.0-44.9, adult; I69.998 Other sequelae following unspecified cerebrovascular disease; H53.8 Other visual disturbances; Z79.01 Long term (current) use of anticoagulants; E11.22 Type 2 diabetes mellitus with diabetic chronic kidney disease; I12.9 Hypertensive chronic kidney disease with stage 1 through stage 4 chronic kidney disease, or unspecified chronic kidney disease; N18.9 Chronic kidney disease, unspecified; G89.29 Other chronic pain; M54.50 Low back pain, unspecified; E66.01 Morbid (severe) obesity due to excess calories; E86.0 Dehydration; I87.2 Venous insufficiency (chronic) (peripheral); G47.33 Obstructive sleep apnea (adult) (pediatric); Z79.82 Long term (current) use of aspirin; Z79.4 Long term (current) use of insulin; Z79.84 Long term (current) use of oral hypoglycemic drugs; Z88.0 Allergy status to penicillin; Z87.440 Personal history of urinary (tract) infections; Z82.49 Family history of ischemic heart disease and other diseases of the circulatory system; Z83.3 Family history of diabetes mellitus; Z80.3 Family history of malignant neoplasm of breast
CPT/HCPCS: 36415; 36416; 51702; 71045; 80048; 80053; 81001; 82962; 83735; 84100; 84145; 85025; 86140; 86403; 87040; 87086; 87486; 87581; 87633; 93005; 94640; 94664; 94760; 96372; 96374; 97110; 97116; 97162; 97165; 97530; 99285; G0378; J0248; J0692; J0696; J1100; J1815; J1940; J2470; J3535; J7030; J7614; J7644

== ENCOUNTER 2024-09-04 13:19 | Inpatient (IN) | payer OTHER, SELFPAY ==
[2024-09-04] VITALS (18 sets, daily range): BP systolic 135–194; BP diastolic 69–160; PULSE 52–78; RESP 10–20; TEMP 36.3; O2SAT 81–99; BMI 36.8
--- NOTE | 2024-09-04 14:14 | ECG_ITS ---
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1950 Requested By: Jose Tucker Order Number: [id number] Rena MD: ERAN GARDUNO Measurements Intervals [place] Rate: 53 P: 0 ME: 0 QRS: -1 QRSD: 103 T: 53 QT: 447 QTc: 420 Interpretive Statements ATRIAL FLUTTER/TACHYCARDIA WITH SLOW VENTRICULAR RESPONSE ANTEROSEPTAL MYOCARDIAL INFARCTION , PROBABLY OLD [40+ ms Q WAVE IN V1-V4] Compared to ECG 08/22/2024 17:26:00 Atrial fibrillation no longer present Right-axis deviation no longer present Myocardial infarct finding still present Electronically Signed On 09-05-2024 23:13:38 [employer] by ERAN GARDUNO [email or web address]
[2024-09-04 14:22] LABS: Glucose Point of Care 49 mg/dL (70-110)
[2024-09-04] MEDS: diphenhydrAMINE 50 mg/mL SDV 1mL IM (16:23)
[2024-09-04] MEDS: LORazepam 2 mg/mL INJ 1 mL IM (16:24)
[2024-09-04] MEDS: haloperidol inj 5 mg/mL INJ 1 mL IM ×2 (16:24→18:12)
--- NOTE | 2024-09-04 16:25 | CTR_ITS ---
PROCEDURE INFORMATION: Exam: CT Lumbar Spine Without Contrast Exam date and time: 09/04/2024 4:39 PM Age: 74 years old Clinical indication: Injury or trauma; Fall; Blunt trauma (contusions or hematomas); Additional info: Pain, fall TECHNIQUE: Imaging protocol: Computed tomography of the lumbar spine without contrast. Radiation optimization: All CT scans at this facility use at least one of these dose optimization techniques: automated exposure control; mA and/or kV adjustment per patient size (includes targeted exams where dose is matched to clinical indication); or iterative reconstruction. COMPARISON: CR XR lumbar spine min 4V [id number] 04/05/2024 2:28 PM RADIATION DOSE METRICS: Total DLP (mGy-cm): 1597.97 FINDINGS: Bones/joints: No acute fracture. No subluxation. Diffuse moderate to severe facet degenerative changes greatest at L5-S1. Sacrum and visualized iliac bones are intact. Mild bilateral foraminal narrowing at L5-S1 due to the bony proliferative changes. Kidneys and ureters: There is bilateral symmetric moderate to severe hydronephrosis and hydroureter with mild periureteral fat stranding. Urinary bladder: Urinary bladder is very distended. This appearance may reflect obstruction from difficulty voiding or distal mass not visualized on this exam. Soft tissues: Unremarkable. CT/CT lumbar spine wo con* [id number] IMPRESSION: 1. There is bilateral symmetric moderate to severe hydronephrosis and hydroureter with mild periureteral fat stranding. Urinary bladder is very distended. This appearance may reflect obstruction from difficulty voiding or distal mass not visualized on this exam. Ultrasound after voiding/bladder catheterization to confirm resolution of hydronephrosis or CT scan abdomen and pelvis may be helpful for further evaluation. 2. No acute bony abnormality. There are degenerative changes in the spine.
--- NOTE | 2024-09-04 16:25 | XRR_ITS ---
PROCEDURE INFORMATION: Exam: XR Chest Exam date and time: 09/04/2024 4:31 PM Age: 74 years old Clinical indication: Cough; Patient HX: Weakness; Covid +; SOB TECHNIQUE: Imaging protocol: Radiologic exam of the chest. Views: 1 view. COMPARISON: 1. CT Chest w IV contrast* [id number] 06/28/2019 12:58 AM 2. CR XR chest 1V portable [id number] 08/26/2024 10:14 AM FINDINGS: Lungs: Pulmonary vascularity is within normal limits. Unchanged density along the left heart border due to prominent apical fat pad on prior CT scan. No new or increasing airspace consolidation compared to multiple prior exams. Unchanged curvilinear masslike density right lung apex. Pleural spaces: Unremarkable. No pleural effusion. No pneumothorax. Heart/Mediastinum: Unchanged cardiomegaly. Bones/joints: No acute abnormality. XR/XR chest 1V portable [id number] IMPRESSION: 1. No acute findings. 2. Stable chronic findings include the pleural-based mass right lung apex, cardiomegaly and increased density obscuring the left heart border due to prominent apical fat pad.
--- NOTE | 2024-09-04 17:39 | P.HP_ITS ---
Providers/Chief Complaint 2 Primary Care Provider: Ajay Robertson DO Chief Complaint: weakness; falls History of Present Illness Kay Munroe is a 74 year old female with PMH of recent COVID infection, TIIDM, Obesity, a-fib, HTN, chronic urinary retention, GERD, COPD, who presented to ER today for altered mental status, low back pain and leg weakness after multiple falls, generalized weakness, urinary incontinence. Partner states that for the last few weeks, patient has had difficulties recovering for COVID infection. States that she has had problems with progressive weakness, leg pain and numbness and overall decline in health. Reports that he has had to have EMS come to help her up on several occasions over the last few weeks. Reports that he is concerned she has UTI as she has foul smelling urine and no control over her bladder. In addition, she has had shortness of breath and inability to walk or transfer without assistance. He states that he is no longer able to care for her. States that he is also concerned that she may need rehab or possible SNF placement as he is unable to lift her or help with her ADL's due to her decline. In the ER, labs showed low platelets to 144k, Cr at 1.1, BUN at 44 and slight elevation LFT's. CT lumbar spine showed bilateral hydronephrosis, moderate to severe. Goodman catheter and cultures were obtained. Patient was admitted to [facility] for further workup. Review of Systems 2 General: Reports: 10 or more systems reviewed and unremarkable except in HPI and below Medications/Allergies Home Medications Medication Instructions Recorded Confirmed Last Taken Type loratadine 10 mg tablet (Claritin) 10 mg PO DAILY PRN ALLERGIES 08/22/19 09/04/24 09/04/24 History metoprolol tartrate 25 mg tablet 12.5 mg PO BID 08/22/19 09/04/24 09/04/24 History oxybutynin chloride 15 mg 15 mg PO DAILY 08/22/19 09/04/24 09/04/24 History tablet,extended release 24 hr cyclobenzaprine 5 mg tablet 5 mg PO BID PRN Muscle Spasm 03/01/20 09/04/24 09/04/24 History empagliflozin 25 mg tablet 25 mg PO QAM 03/01/20 09/04/24 09/04/24 History (Jardiance) cpap #1 ea 03/20/22 09/04/24 Unknown Rx aspirin 81 mg tablet,delayed 81 mg PO DAILY 03/10/24 09/04/24 09/04/24 History release apixaban 5 mg tablet (Eliquis) 5 mg PO BID anticoagulation #180 05/31/24 09/04/24 09/04/24 Rx tabs bupropion HCl 75 mg tablet 75 mg PO BID mood #180 tabs 08/05/24 09/04/24 09/04/24 Rx insulin aspart U-100 100 unit/mL 40 unit SUBCUT TID 08/23/24 09/04/24 09/03/24 History (3 mL) subcutaneous pen insulin glargine-yfgn 100 unit/mL 80 unit SUBCUT QPM 08/23/24 09/04/24 09/03/24 History (3 mL) subcutaneous pen dexamethasone 6 mg tablet 6 mg PO Q24H #5 tabs 08/27/24 09/04/24 09/04/24 Rx diltiazem HCl 240 mg capsule,24 240 mg PO DAILY #30 caps 08/27/24 09/04/24 09/04/24 Rx hr,extended release fluticasone 250 mcg-salmeterol 50 1 inh inhalation Q12H #60 ea 08/27/24 09/04/24 09/04/24 Rx mcg/dose blistr powdr for inhalation (Advair Diskus) lisinopril 40 mg tablet 20 mg (1/2 x 40 mg) PO DAILY #30 08/27/24 09/04/24 09/04/24 Rx tabs pantoprazole 40 mg tablet,delayed 40 mg PO QAM #60 tabs 08/27/24 09/04/24 09/04/24 Rx release (Protonix) tiotropium bromide 2.5 2 inh inhalation QAM #4 grams 08/27/24 09/04/24 09/04/24 Rx mcg/actuation mist for inhalation (Spiriva Respimat) Allergies Allergy/AdvReac Type Severity Reaction Status Date / Time Penicillins AdvReac nausea/vomi Verified 08/22/24 17:24 ting Nbgyqdk-STV-UbK Reductase AdvReac muscle pain Verified 08/22/24 17:24 Inhibitor [Xhucnqa-Aza-Crt Reductase Inhibitor] PFSH Acute 2 PFSH: Medical History Postmenopausal bleeding Hematuria Urinary tract infection Urgency incontinence Recurrent UTI CVA (cerebral vascular accident) Anticoagulation adequate with anticoagulant therapy Diabetes Obesity Obstructive sleep apnea Atrial fibrillation Chronic ischemia posterior cerebral artery stroke This patient has a 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 She has chronic atrial fibrillation, morbid obesity, poorly controlled diabetes with poor compliance on diet, hypertension that is under poor control and recurrent episodes that have brought her to the emergency department with transient neurologic symptoms and no residual. She has chronic findings of right homonymous hemianopsia from her previous left posterior cerebral artery stroke. Her is heavily invested in her care and motivated to help her with compliance on diet and exercise. She was recently started on Zetia. Her blood pressure and lipids will be managed by Dr. Wilson. I have nothing further to add. Her is very concerned that she is not keeping up with her fluids and I advise she should drink water at an appropriate amount. Getting her off of hydrochlorothiazide will probably help. I have nothing further to add. Surgical History Hx of tonsillectomy Hx of appendectomy Family History Father , IN HIS LATE 50'S No problems noted. Mother , AT AGE 65 Hypertension Grandmother Breast cancer maternal Sister Diabetes Hypertension Denies family history of Colon cancer Ovarian cancer Heart disease Hypercholesteremia Uterine cancer Thyroid disease Stroke Social History Smoking and tobacco/nicotine status: never used tobacco/nicotine Substance/Drug Use: unknown Vitals/I&O/Wt Last Vital Signs Temp 97.4 F L 09/04/24 13:20 Pulse 75 09/04/24 15:30 Resp 14 09/04/24 15:30 BP 147/81 09/04/24 15:30 Pulse Ox 97 09/04/24 15:30 O2 Del Method Nasal Cannula 09/04/24 13:20 O2 Flow Rate 3 09/04/24 13:20 Weight last 48 hrs Weight 235 lb Physical Exam 2 Narrative: General: Morbid obese female in no acute distress. Generalized weakness noted. HEENT: Normocephalic, Atraumatic. External ears normal. Nasal passages patent without drainage. MMM. Features of hirsutism present. Heart: Regular rate with irregular rhythm. Resp: Bilateral crackles noted in the lungs, no wheezes or rhonchi. Abd: Soft, non-tender. Distended with hyperactive bowel sounds. Extremities: 1+ LE edema. Skin: Dry and cracked skin on the LE's bilaterally. Neuro: A/O to person only. Data 09/04/24 18:13 09/04/24 18:13 A&P Assessment and plan (1) Altered mental status: Qualifiers: Altered mental status type: disorientation Qualified Code(s): R41.0 - Disorientation, unspecified (2) Bilateral hydronephrosis: (3) Weakness: (4) Atrial fibrillation: Qualifiers: Atrial fibrillation type: persistent (not longstanding) Qualified Code(s): I48.19 - Other persistent atrial fibrillation (5) Peripheral arterial disease: (6) Diabetes: Qualifiers: Diabetes mellitus type: type 2 Diabetes mellitus care home insulin use: with superintendent container terminal use Diabetes mellitus complication status: with hyperglycemia Qualified Code(s): E11.65 - Type 2 diabetes mellitus with hyperglycemia; Z79.4 - detention (current) use of insulin (7) Obesity: Qualifiers: Obesity type: due to excess calories Obesity classification: adult class 3 (BMI >= 40) Serious obesity comorbidity presence: with serious comorbidity Body mass index: BMI 50.0-59.9 Qualified Code(s): E66.813 - Obesity, class 3; E66.01 - Morbid (severe) obesity due to excess calories; Z68.43 - Body mass index [BMI] 50.0-59.9, adult (8) Recurrent UTI: (9) Urgency incontinence: (10) COVID-19: (11) Back pain: Qualifiers: Back pain location: low back pain Chronicity: chronic Back pain laterality: bilateral Sciatica presence: with sciatica Sciatica laterality: b ilateral sciatica Qualified Code(s): M54.42 - Lumbago with sciatica, left side; M54.41 - Lumbago with sciatica, right side; G89.29 - Other chronic pain (12) Degenerative lumbar disc: Qualifiers: Disc-related pain type: discogenic back pain and lower extremity pain Qualified Code(s): M51.362 - Other intervertebral disc degeneration, lumbar region with discogenic back pain and lower extremity pain (13) COPD (chronic obstructive pulmonary disease): (14) Thrombocytopenia: Plan 74 y/o Female admitted with AMS, bilateral hydronephrosis, UTI, uncontrolled diabetes, severe weakness, a-fib, multiple falls, generalized weakness, COPD, TIIDM uncontrolled. Will admit to [facility] for now. Labs show low platelets, elevated BUN/Cr, hyperglycemia, elevated LFT's. CT shows severe bilateral hydronephrosis. Goodman placed today in ER. Consider nephrology consult if needed. UA and culture pending. BCx pending. Will start on Rocephin for suspected UTI. Accu checks and SSI for diabetes. AM Labs. Include B12, folate, Mag phos. Recheck CBC for thrombocytopenia. Will hold empagloflozin due to recurrent UTI. RAAT, O2 protocol for COPD. Protonix for GI prophylaxis. Continue Eliquis for VTE prophylaxis. Recheck LFT's in am. PT/OT to evaluate and treat. Home medications for other chronic illnesses. Code Status: Full IVF: None DVT PPx: Eliquis GI PPx: Protnix ABx: Rocephin Diet: CC Discharge plan: Case management consult to help determine. Attestations 2 Medical Necessity Statement*: Patient will need admission for treatment of altered mental status, hydronephrosis, UTI, Weakness, Cultures, labs, possible referrals and discharge planning. Stay is expected to cross two midnights. Coding Level of Care Code Acute Code for Chg Fwd High MDM includes number and complexity of problems actively addressed during encounter, amount and/or complexity of data reviewed/ordered and described risk of complication, morbidity or mortality of management as documented Diagnoses Disorientation R41.0 Altered mental status type: disorientation Bilateral hydronephrosis N13.30 Weakness R53.1 Persistent atrial fibrillation I48.19 Atrial fibrillation type: persistent (not longstanding) Peripheral arterial disease I73.9 Type 2 diabetes mellitus with hyperglycemia, with long-term current use of insulin E11.65; Z79.4 Diabetes mellitus type: type 2 Diabetes mellitus care home insulin use: with superintendent container terminal use Diabetes mellitus complication status: with hyperglycemia Class 3 severe obesity due to excess calories with serious comorbidity and body mass index (BMI) of 50.0 to 59.9 in adult E66.813; E66.01; Z68.43 Obesity type: due to excess calories Obesity classification: adult class 3 (BMI >= 40) Serious obesity comorbidity presence: with serious comorbidity Body mass index: BMI 50.0-59.9 Recurrent UTI N39.0 Urgency incontinence N39.41 COVID-19 U07.1 Chronic bilateral low back pain with bilateral sciatica M54.42; M54.41; G89.29 Back pain location: low back pain Chronicity: chronic Back pain laterality: bilateral Sciatica presence: with sciatica Sciatica laterality: bilateral sciatica Degeneration of intervertebral disc of lumbar region with discogenic back pain and lower extremity pain M51.362 Disc-related pain type: discogenic back pain and lower extremity pain COPD (chronic obstructive pulmonary disease) J44.9 Thrombocytopenia D69.6
[2024-09-04 18:39] LABS: Basophils % 0.1 %; Eosinophils # 0.1 10^3/uL (0.0-0.8); Eosinophils % 1.3 %; Hematocrit 55.1 % (36-47); Lymphocytes % 10.4 %; Mean Corpuscular HGB Conc 30.7 g/dL (30-55); Mean Corpuscular Hemoglobin 27.8 pg (27-33); Mean Corpuscular Volume 90.8 fl (85-98); Mean Platelet Volume 11.1 fL (7.4-10.4); Monocytes # 0.8 10^3/uL (0.2-0.9); Monocytes % 8.4 %; Neutrophils # 7.22 10^3/uL (1.8-7.7); Neutrophils % 78.7 %; Nucleated Red Blood Cells % 0 %; Platelet Count 144 10^3/cmm (157-399); Red Blood Count 6.07 10^6/uL (3.85-5.65); Red Cell Distribution Width 15.2 % (12.1-15.1); White Blood Count 9.17 10^3/uL (3.29-11.43)
[2024-09-04 19:01] LABS: Alanine Aminotransferase 35 U/L (0-33); Albumin Level 3.1 g/dL (3.5-5.2); Alkaline Phosphatase 51 U/L (35-105); Aspartate Amino Transferase 25 U/L (0-32); Blood Urea Nitrogen 44 mg/dL (8-23); Calcium 8.5 mg/dL (8.5-10.5); Carbon Dioxide 20 mmol/L (22-29); Chloride 106 mmol/L (98-107); Creatinine Clr Calc Pharmacy 58.0902; Globulin 2.4 g/dL (1.3-4.6); Glucose 141 mg/dL (65-115); Osmolality Calculated 302 mOsm/kg (285-295); Sodium 139 mmol/L (136-145); Total Bilirubin 0.7 mg/dL (0.15-1.2); Total Protein 5.5 g/dL (6.6-8.7)
[2024-09-04 19:03] LABS: Anion Gap 17.3 (5-19); Potassium 4.3 mmol/L (3.5-5.1)
[2024-09-04] MEDS: pantoprazole 40 mg SDV IVP (19:37)
[2024-09-04] MEDS: ibuprofen 200 mg Tablet 400 MG PO (19:37)
--- NOTE | 2024-09-04 20:08 | ED_ITS ---
HPI - Weakness 2 General: Chief complaint: Weakness Stated complaint: weakness; falls Time Seen by Provider: 09/04/24 13:26 History of Present Illness: This patient is a 74-year-old white female who presents to the emergency department with generalized weakness and frequent falling. Patient presents with her significant other and db2 developer. He states that she was diagnosed with COVID 2 weeks ago and was hospitalized here. She was discharged home on August 27. He states ever since she has been home she has been extremely weak. She has been able to stand up so he can change her pad until the last couple of days where she is not even able to stand. He states he is at the point where he cannot take care of her. He states that she has chronic back issues and chronic knee issues as well. States he has been trying to get an MRI of her spine done since March. She does have multiple chronic medical problems including COPD, insulin-dependent diabetes, atrial fibrillation and prior CVAs. 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 She has chronic atrial fibrillation, morbid obesity, poorly controlled diabetes with poor compliance on diet, hypertension that is under poor control and recurrent episodes that have brought her to the emergency department with transient neurologic symptoms and no residual. She has chronic findings of right homonymous hemianopsia from her previous left posterior cerebral artery stroke. Her is heavily invested in her care and motivated to help her with compliance on diet and exercise. She was recently started on Zetia. Her blood pressure and lipids will be managed by Dr. Wilson. I have nothing further to add. Her is very concerned that she is not keeping up with her fluids and I advise she should drink water at an appropriate amount. Getting her off of hydrochlorothiazide will probably help. I have nothing further to add. Surgical History Hx of tonsillectomy Hx of appendectomy Family History Father , IN HIS LATE 50'S No problems noted. Mother , AT AGE 65 Hypertension Grandmother Breast cancer maternal Sister Diabetes Hypertension Denies family history of Colon cancer Ovarian cancer Heart disease Hypercholesteremia Uterine cancer Thyroid disease Stroke Social History Smoking and tobacco/nicotine status: never used tobacco/nicotine Substance/Drug Use: unknown Physical Exam 2 Const: COMMON NORMALS: no acute distress, patient oriented x3 and no limitations GENERAL APPEARANCE: cooperative and comfortable HENMT: COMMON NORMALS: normocephalic, atraumatic, Normal nasal mucous membranes and turbinates present, moist oral mucous membranes and oropharynx normal HEAD & SCALP: normal to inspection, normocephalic and atraumatic F WILL & SINUS: normal facial exam NOSE: Normal nasal mucous membranes and turbinates present Eye: COMMON NORMALS: Equal, round and reactive pupils present, EOMs intact bilaterally and conjunctivae normal GENERAL EYE: appearance normal, both eyes and all related structures CONJUNCTIVA: Yes conjunctivae normal PUPIL: Yes Equal, round and reactive pupils present Neck/C-Spine: COMMON NORMALS: supple and no JVD Chest: COMMONS NORMALS: normal inspection of the chest Resp: COMMON NORMALS: normal respiratory effort and clear to auscultation bilaterally AUSCULTATION: clear to auscultation bilaterally Cardio: COMMON NORMALS: no JVD, regular rate, regular rhythm, No gallops present (Cardio), No murmurs present (Cardio) and No rub (Cardio) RATE: r egular rate RHYTHM: regular rhythm GI: COMMON NORMALS: Normal to inspection, nondistended, normoactive bowel sounds present, Soft to palpation and non-tender AUSCULTATION: Yes normoactive bowel sounds PALPATION: Yes Soft to palpation Extremity: COMMON NORMALS: normal to inspection Neuro: COMMON NORMALS: patient oriented x3 and CN's II-XII intact bilaterally Skin: COMMON NORMALS: no rashes or lesions noted, turgor normal and no jaundice GENERAL SKIN EXAM: no rashes or lesions noted and turgor normal Course 2 Vital Signs: Vital signs: Vital Signs Temperature 97.4 F L 09/04/24 13:20 Pulse Rate 66 09/04/24 19:00 Respiratory Rate 14 09/04/24 19:00 Blood Pressure 163/93 09/04/24 19:00 Pulse Oximetry 96 09/04/24 18:30 Oxygen Delivery Me thod Nasal Cannula 09/04/24 13:20 Oxygen Flow Rate 3 09/04/24 13:20 MDM - Weakness Medical Decision Making EKG revealed atrial fibrillation with a ventricular rate of 53. CBC was normal. CMP revealed a BUN of 44 creatinine of 1.1. Urinalysis pending. Chest x-ray was read by the radiologist as nothing acute. CT scan of the lumbar spine was read by the radiologist as distention of the bladder with bilateral hydroureter and hydronephrosis. Degenerative changes of the spine. Patient's significant other/db2 developer is requesting admission with placement in a custodial since he is unable to manage her care at this time. I discussed this case with Dr. Sierra, hospitalist. He did accept the patient for admission. Nursing staff has been having difficulty placing a catheter. Will have them continue to work on that as it does appear that her bladder needs to be drained. Patient will be transferred to the floor following that. She is stable. Lab Data 09/04/24 18:13 09/04/24 18:13 Radiology Impressions Chest X-Ray 09/04/24 16:25 IMPRESSION: 1. No acute findings. 2. Stable chronic findings include the pleural-based mass right lung apex, cardiomegaly and increased density obscuring the left heart border due to prominent apical fat pad. Lumbar Spine CT 09/04/24 16:25 IMPRESSION: 1. There is bilateral symmetric moderate to severe hydronephrosis and hydroureter with mild periureteral fat stranding. Urinary bladder is very distended. This appearance may reflect obstruction from difficulty voiding or distal mass not visualized on this exam. Ultrasound after voiding/bladder catheterization to confirm resolution of hydronephrosis or CT scan abdomen and pelvis may be helpful for further evaluation. 2. No acute bony abnormality. There are degenerative changes in the spine. Laboratory Results WBC 9.17 10^3/uL (3.29-11.43) 09/04/24 18:13 RBC 6.07 10^6/uL (3.85-5.65) H 09/04/24 18:13 Hgb 16.90 g/dL (11.27-16.99) 09/04/24 18:13 Hct 55.1 % (36-47) H 09/04/24 18:13 MCV 90.8 fl (85-98) 09/04/24 18:13 MCH 27.8 pg (27-33) 09/04/24 18:13 MCHC 30.7 g/dL (30-55) 09/04/24 18:13 RDW 15.2 % (12.1-15.1) H 09/04/24 18:13 Plt Count 144 10^3/cmm (157-399) L 09/04/24 18:13 MPV 11.1 fL (7.4-10.4) H 09/04/24 18:13 Neut % (Auto) 78.7 % 09/04/24 18:13 Lymph % (Auto) 10.4 % 09/04/24 18:13 [place] % (Auto) 8.4 % 09/04/24 18:13 Eos % (Auto) 1.3 % 09/04/24 18:13 Baso % (Auto) 0.1 % 09/04/24 18:13 Neut # (Auto) 7.22 10^3/uL (1.8-7.7) 09/04/24 18:13 Lymph # (Auto) 1.0 10^3/uL (0.8-4.8) 09/04/24 18:13 [place] # (Auto) 0.8 10^3/uL (0.2-0.9) 09/04/24 18:13 Eos # (Auto) 0.1 10^3/uL (0.0-0.8) 09/04/24 18:13 Baso # (Auto) 0.0 10^3/uL (0.0-0.1) 09/04/24 18:13 Nucleated RBC % (auto) 0 % 09/04/24 18:13 Nucleated RBCs # 0.0 /100WBC 09/04/24 18:13 Sodium 139 mmol/L (136-145) 09/04/24 18:13 Potassium 4.3 mmol/L (3.5-5.1) 09/04/24 18:13 Chloride 106 mmol/L (98-107) 09/04/24 18:13 Carbon Dioxide 20 mmol/L (22-29) L 09/04/24 18:13 Anion Gap 17.3 (5-19) 09/04/24 18:13 BUN 44 mg/dL (8-23) H 09/04/24 18:13 Creatinine 1.1 mg/dL (0.5-0.9) H 09/04/24 18:13 GFR Calculation Not Reportable 09/04/24 18:13 Glucose 141 mg/dL (65-115) H 09/04/24 18:13 POC Glucose 49 mg/dL (70-110) L 09/04/24 14:17 Calculated Osmolality 302 mOsm/kg (285-295) H 09/04/24 18:13 Calcium 8.5 mg/dL (8.5-10.5) 09/04/24 18:13 Total Bilirubin 0.7 mg/dL (0.15-1.2) 09/04/24 18:13 AST 25 U/L (0-32) 09/04/24 18:13 ALT 35 U/L (0-33) H 09/04/24 18:13 Alkaline Phosphatase 51 U/L (35-105) 09/04/24 18:13 Total Protein 5.5 g/dL (6.6-8.7) L 09/04/24 18:13 Albumin 3.1 g/dL (3.5-5.2) L 09/04/24 18:13 Globulin 2.4 g/dL (1.3-4.6) 09/04/24 18:13 All radiology interpretation(s) finalized by discharge Discharge Plan Discharge Patient Disposition: Admitted As Inpatient Clinical Impression: Generalized weakness Condition: Stable Coding Level of Care Code ED Radio Electronics Technician for Chg Fwd Related Data Home Medications Medication Instructions Recorded Confirmed loratadine 10 mg tablet (Claritin) 10 mg PO DAILY PRN ALLERGIES 08/22/19 09/04/24 metoprolol tartrate 25 mg tablet 12.5 mg PO BID 08/22/19 09/04/24 oxybutynin chloride 15 mg 15 mg PO DAILY 08/22/19 09/04/24 tablet,extended release 24 hr cyclobenzaprine 5 mg tablet 5 mg PO BID PRN Muscle Spasm 03/01/20 09/04/24 empagliflozin 25 mg tablet 25 mg PO QAM 03/01/20 09/04/24 (Jardiance) aspirin 81 mg tablet,delayed 81 mg PO DAILY 03/10/24 09/04/24 release insulin aspart U-100 100 unit/mL 40 unit SUBCUT TID 08/23/24 09/04/24 (3 mL) subcutaneous pen insulin glargine-yfgn 100 unit/mL 80 unit SUBCUT QPM 08/23/24 09/04/24 (3 mL) subcutaneous pen Previous Rx's Medication Instructions Recorded cpap #1 ea 03/20/22 apixaban 5 mg tablet (Eliquis) 5 mg PO BID anticoagulation #180 05/31/24 tabs bupropion HCl 75 mg tablet 75 mg PO BID mood #180 tabs 08/05/24 dexamethasone 6 mg tablet 6 mg PO Q24H #5 tabs 08/27/24 diltiazem HCl 240 mg capsule,24 240 mg PO DAILY #30 caps 08/27/24 hr,extended release fluticasone 250 mcg-salmeterol 50 1 inh inhalation Q12H #60 ea 08/27/24 mcg/dose blistr powdr for inhalation (Advair Diskus) lisinopril 40 mg tablet 20 mg (1/2 x 40 mg) PO DAILY #30 08/27/24 tabs pantoprazole 40 mg tablet,delayed 40 mg PO QAM #60 tabs 08/27/24 release (Protonix) tiotropium bromide 2.5 2 inh inhalation QAM #4 grams 08/27/24 mcg/actuation mist for inhalation (Spiriva Respimat) Allergies Allergy/AdvReac Type Severity Reaction Status Date / Time Penicillins AdvReac nausea/vomi Verified 08/22/24 17:24 ting Uhlqdvr-JZD-UmP Reductase AdvReac muscle pain Verified 08/22/24 17:24 Inhibitor [Nurorxv-Pgb-Jkd Reductase Inhibitor]
[2024-09-04] MEDS: cefTRIAXone 1,000 mg SDV 1000 MG IVP (20:19)
[2024-09-04 22:03] LABS: Glucose Point of Care 89 mg/dL (70-110)
[2024-09-04 23:08] LABS: Glucose Point of Care 70 mg/dL (70-110)
[2024-09-04 23:29] LABS: Glucose Point of Care 88 mg/dL (70-110)
[2024-09-05] VITALS (7 sets, daily range): BP systolic 131–167; BP diastolic 70–97; PULSE 75–99; RESP 15–19; TEMP 36.4–36.9; O2SAT 94–98
[2024-09-05 00:08] LABS: Glucose Point of Care 83 mg/dL (70-110)
[2024-09-05 00:46] LABS: Glucose Point of Care 116 mg/dL (70-110)
[2024-09-05 06:31] LABS: Glucose Point of Care 172 mg/dL (70-110)
--- NOTE | 2024-09-05 09:15 | PC.CHAP ---
Pastoral Care Encounter/Spiritual Assessment Type of Contact [] Declined gun stock maker visit [] Patient/Family/Request visit [] Outpatient visit [] Follow-up visit [] Physician referral [] Code/Alert [x] Routine visit [] Staff referral [] Actively dying [x] Patient sleeping [] Family support [] [] Out of room [] Palliative care [] [] Receiving care in room [] Pre-surgical visit [] Trauma [] Long length of stay [] ICU visit [] Other: Relational/Emotional Strength [] Patient feels connected with others/family/visitors/staff [] Distress [] Loneliness/isolation [] Abandonment Spirituality of Patient [] Person of Nancy [] Attends Druze of their Nancy [] Believes in Prayer [] Reads Bible or Restorationist materials [] There are Spiritual issues to be addressed Shirt Bander Interventions [x] Prayer [] Active listening [] Non-anxious presence [] Spiritual/emotional support [] Crisis/trauma care [] Spiritual counseling [] Bereavement support [] Provided bereavement packet [] Provided Bible/devotional materials [] Provided toy/stuffed animal, coloring book to patient or family member [] Provided Communion [] Anointing/[place] [] Salvation [] Completed spiritual assessment [] Other: Impact on Illness or Injury [] Angry [] Fearful [] Anxious [] Often cries [] Exhaustion [] Unable to work [] Unable to attend sabianism [] Unable to walk/stand [] Unable to read [] Unable to drive [] Unable to eat/drink [] Unable to sleep [] Unable to be with family [] Patient intubated [] Other: Summary Time spent with patient
[2024-09-05 11:45] LABS: Glucose Point of Care > 600 mg/dL (70-110)
--- NOTE | 2024-09-05 12:12 | CT_ITS ---
WS: [id number] CT ABDOMEN AND PELVIS NONCONTRAST HISTORY: b/l hydronephrosis TECHNIQUE: Imaging performed through the abdomen and pelvis. Coronal and sagittal reformats are submi tted. All CT scans at [facility] use at least one of these dose optimization techniques: auto mated exposure control; mA and/or kV adjustment per patient size (includes targeted exams where dose is matched to clinical indication); or iterative reconstruction. DLP: 1275.24 mGy.cm COMPARISON: CT lumbar spine 09/04/2024 Lower thorax: Breathing motion artifact. Moderate cardiomegaly. Small hiatal hernia. Liver: Normal size liver. No mass or bile duct dilatation. Gallbladder: Normal gallbladder. No pericholecystic fluid or cholelithiasis. No gallbladder wall thic kening. Pancreas: Normal size and attenuation. Normal pancreatic duct. No pancreatitis or mass. Spleen: Normal size with heterogeneity. Adrenal glands: Normal. No mass. Right kidney: Motion artifact. Previously described hydronephrosis and hydroureter has moderately imp roved. There is still periureteral and perinephric stranding and mild dilatation of the renal pelvis. No ureteral stone or calcification. Left kidney: Mild perinephric stranding. Resolved hydronephrosis and hydroureter. Aorta: Mild atherosclerosis abdominal aorta with no aneurysm. No free fluid, intraperitoneal air or significant lymphadenopathy. GI tract: No obstruction. Appendix not definitely identified and may have been removed. Abdominal wall: Small umbilical hernia contains fat only. Pelvis: Goodman catheter present in a nondistended bladder. Atrophic uterus. Osseous structures: No destructive bone lesions. Facet joint arthropathy in the lumbar spine. CT/CT abdomen pelvis wo con [id number] IMPRESSION: 1. Marked improvement in the previously described bilateral hydro ureteronephr osis as compared to 09/04/2024. Interval insertion of a Goodman catheter with deco mpression of the urinary bladder. 2. There is still mild RIGHT hydronephrosis and perinephric stranding. No uret eral calcification. 3. Resolved LEFT hydronephrosis.
[2024-09-05] MEDS: fluconazole 100 mg Tablet 200 MG PO (12:43)
[2024-09-05] MEDS: metoprolol tartrate 25 mg Tablet 12.5 MG PO ×2 (12:43→17:54)
[2024-09-05] MEDS: insulin lispro 100 unit/1 mL SUBCUT (12:44)
[2024-09-05] MEDS: insulin glargine 100 units/1 mL 50 UNIT SUBCUT (13:40)
[2024-09-05] MEDS: sodium chloride 0.9% 1,000 ML 75 ML IV (13:40)
[2024-09-05 14:11] LABS: Bilirubin Urine Negative (Negative); Blood Urine 2+ (Negative); Glucose Urine UA 3+ (Normal); Ketones Urine Negative (Negative); Leukocyte Esterase Urine 2+ (Negative); Nitrate Urine Negative (Negative); Protein Urine 1+ (Negative); Specific Gravity, Urine 1.018 (1.005-1.030); Urine Appearance Turbid (CLEAR); Urine Color Yellow (Yellow); Urobilinogen Urine 0.2 mg/dL (Negative)
[2024-09-05 14:16] LABS: Add Urine Microscopic? YES; Bacteria Urine None Seen /hpf; Hyaline Casts Urine 0-4 /lpf; Squamous Epithelial Cell Urine 0-5 /hpf (0-5); WBC Urine >100 /hpf (0-5)
[2024-09-05 14:30] LABS: UA Slide Review UA Slide Review Perf
[2024-09-05 14:32] LABS: Add Urine Culture? Yes
--- NOTE | 2024-09-05 14:57 | PM.PN ---
Subjective Subjective: Hospital course, labs appreciated. Patient seen sitting up in recliner. Has been refusing some treatment. Refused insulin earlier in the morning. Refused Goodman placement. Vitals/I&O/Wt Last Vital Signs Temp 98.0 F 09/05/24 11:37 Pulse 99 09/05/24 11:37 Resp 16 09/05/24 11:37 BP 131/97 09/05/24 11:37 Pulse Ox 95 09/05/24 11:37 O2 Del Method Room Air 09/05/24 11:37 O2 Flow Rate 3 09/04/24 19:15 09/04/24 09/05/24 09/05/24 22:59 06:59 14:59 Intake Total 960 / 960 588 / 588 Balance 960 / 960 588 / 588 Weight last 48 hrs Weight 135.08 kg Weight 136.191 kg Weight 106.594 kg Physical Exam Narrative: General: Morbid obese female in no acute distress. Generalized weakness noted. Chronically sick appearing, smelling of urine, HEENT: Normocephalic, Atraumatic. External ears normal. Nasal passages patent without drainage. MMM. Features of hirsutism present. Heart: Regular rate with irregular rhythm. Resp: Bilateral crackles noted in the lungs, no wheezes or rhonchi. Abd: Soft, non-tender. Distended with hyperactive bowel sounds. Extremities: 1+ LE edema. Skin: Dry and cracked skin on the LE's bilaterally. Neuro: AOx3, no focal deficit, moving all limbs Urinary Catheter Management: Goodman: Cath Placed During This Visit: yes Urinary Catheter Date of Insertion: 09/05/24 Urinary Catheter Time of Insertion: 13:40 Data 09/04/24 18:13 09/04/24 18:13 A&P Assessment and plan (1) Altered mental status: Resolved. Present on admission. Most likely in setting of dehydration, mild ESPERANZA. Concerns for UTI on admission though patient did not have leukocytosis. No UA present. Continue to monitor. Qualifiers: Altered mental status type: disorientation Qualified Code(s): R41.0 - Disorientation, unspecified (2) Weakness: Most likely in setting of recent COVID-19. Physical therapy. Patient lives with a life partner. Second admission in last 1 month with similar complaints. Discussed about possible discharge to SNF for rehabilitation given morbid obesity, recovering from COVID-19. Patient does not want to entertain SNF for now. Is agreeable for home health. (3) Bilateral hydronephrosis: Seen on CT lumbar. Most likely in setting of urinary retention. Discussed in detail with the patient for need for Goodman catheter. She is finally agreeable. Plan for CT abdomen pelvis without contrast. (4) Recurrent UTI: Appreciate old urine cultures. Concern for UTI on admission given altered mental status. Will obtain UA. No leukocytosis. Continue with IV ceftriaxone which was started for now. Blood cultures ordered not collected yet. Start on fluconazole 2 mg oral daily given history of fungal UTIs in the past. (5) Urinary retention with incomplete bladder emptying: Continue with home dose of oxybutynin. Goodman catheter as above. Most likely will discharge with Goodman in place for at least 2 weeks. Patient will need to follow-up with urology as an outpatient. (6) Atrial fibrillation: Currently rate controlled. Restart home dose of metoprolol and Cardizem. Continue with Eliquis 5 mg twice daily for anticoagulation Qualifiers: Atrial fibrillation type: persistent (not longstanding) Qualified Code(s): I48.19 - Other persistent atrial fibrillation (7) Peripheral arterial disease: (8) Diabetes: Blood sugar severely elevated. Patient refused dynamometer tuner Humalog. Check CMP to rule out metabolic acidosis, serum ketones. Restart Lantus at 50 units twice daily. Takes 80 units every afternoon at home. Continue with insulin sliding scale at severe dose protocol. Monitor blood sugars before meals and at bedtime for now. Appreciate recent A1c. Qualifiers: Diabetes mellitus type: type 2 Diabetes mellitus senior care insulin use: with marine oil terminal superintendent use Diabetes mellitus complication status: with hyperglycemia Qualified Code(s): E11.65 - Type 2 diabetes mellitus with hyperglycemia; Z79.4 - superintendent terminal (current) use of insulin (9) Obesity: Qualifiers: Obesity type: due to excess calories Obesity classification: adult class 3 (BMI >= 40) Serious obesity comorbidity presence: with serious comorbidity Body mass index: BMI 50.0-59.9 Qualified Code(s): E66.813 - Obesity, class 3; E66.01 - Morbid (severe) obesity due to excess calories; Z68.43 - Body mass index [BMI] 50.0-59.9, adult (10) Urgency incontinence: (11) COVID-19: Recovering. Patient is on room air. Finished course of remdesivir. Finished course of dexamethasone. Pulmonary toilet. (12) Back pain: Appreciate CT lumbar done on 09/04. Physical therapy. Qualifiers: Back pain location: low back pain Chronicity: chronic Back pain laterality: bilateral Sciatica presence: with sciatica Sciatica laterality: bilateral sciatica Qualified Code(s): M54.42 - Lumbago with sciatica, left side; M54.41 - Lumbago with sciatica, right side; G89.29 - Other chronic pain (13) Degenerative lumbar disc: Qualifiers: Disc-related pain type: discogenic back pain and lower extremity pain Qualified Code(s): M51.362 - Other intervertebral disc degeneration, lumbar region with discogenic back pain and lower extremity pain (14) COPD (chronic obstructive pulmonary disease): (15) Thrombocytopenia: Plan Code Status: Full IVF: Given severe hyperglycemia normal saline at 100 cc/h for 1 bag. DVT PPx: Eliquis GI PPx: Protnix ABx: Rocephin Diet: CC Discharge plan: Patient would benefit for possible SNF placement but not agreeable. Plan for discharge to home with home health. Attestations Medical Necessity Statement*: Requires further hospitalization for management of generalized weakness, AMS in setting of dehydration, acute kidney injury, bilateral hydroureteronephrosis in setting of urinary retention, possible UTI, severe hyperglycemia Diagnoses Disorientation R41.0 Altered mental status type: disorientation Weakness R53.1 Bilateral hydronephrosis N13.30 Recurrent UTI N39.0 Urinary retention with incomplete bladder emptying R33.9 Persistent atrial fibrillation I48.19 Atrial fibrillation type: persistent (not longstanding) Peripheral arterial disease I73.9 Type 2 diabetes mellitus with hyperglycemia, with long-term current use of insulin E11.65; Z79.4 Diabetes mellitus type: type 2 Diabetes mellitus marine oil terminal superintendent insulin use: with marine oil terminal superintendent use Diabetes mellitus complication status: with hyperglycemia Class 3 severe obesity due to excess calories with serious comorbidity and body mass index (BMI) of 50.0 to 59.9 in adult E66.813; E66.01; Z68.43 Obesity type: due to excess calories Obesity classification: adult class 3 (BMI >= 40) Serious obesity comorbidity presence: with serious comorbidity Body mass index: BMI 50.0-59.9 Urgency incontinence N39.41 COVID-19 U07.1 Chronic bilateral low back pain with bilateral sciatica M54.42; M54.41; G89.29 Back pain location: low back pain Chronicity: chronic Back pain laterality: bilateral Sciatica presence: with sciatica Sciatica laterality: bilateral sciatica Degeneration of intervertebral disc of lumbar region with discogenic back pain and lower extremity pain M51.362 Disc-related pain type: discogenic back pain and lower extremity pain COPD (chronic obstructive pulmonary disease) J44.9 Thrombocytopenia D69.6
[2024-09-05 16:52] LABS: Glucose Point of Care 116 mg/dL (70-110)
[2024-09-05] MEDS: apixaban 5 mg Tablet PO (17:54)
[2024-09-05] MEDS: cyclobenzaprine 10 mg Tablet 5 MG PO (17:54)
[2024-09-05] MEDS: cefTRIAXone 1,000 mg SDV 1000 MG IVP (20:05)
[2024-09-05] MEDS: pantoprazole 40 mg SDV IVP (20:05)
[2024-09-05 20:34] LABS: Glucose Point of Care 114 mg/dL (70-110)
[2024-09-05 21:24] LABS: Ketone (Acetest) Serum Negative (Negative)
[2024-09-06] VITALS (7 sets, daily range): BP systolic 131–145; BP diastolic 69–89; PULSE 80–111; RESP 16–18; TEMP 36.6–37.3; O2SAT 91–96
[2024-09-06 06:18] LABS: Glucose Point of Care 62 mg/dL (70-110)
[2024-09-06 07:07] LABS: Glucose Point of Care 72 mg/dL (70-110)
[2024-09-06] MEDS: metoprolol tartrate 25 mg Tablet 12.5 MG PO ×2 (08:29→17:26)
[2024-09-06] MEDS: oxybutynin chloride XL 5 MG TABLET 15 MG PO (08:29)
[2024-09-06] MEDS: aspirin 81 mg EC Tablet PO (08:29)
[2024-09-06] MEDS: apixaban 5 mg Tablet PO ×2 (08:29→17:26)
[2024-09-06] MEDS: dilTIAZem ER (24HR) 240 mg Capsule PO (08:29)
[2024-09-06] MEDS: fluconazole 100 mg Tablet 200 MG PO (08:30)
[2024-09-06] MEDS: insulin glargine 100 units/1 mL 50 UNIT SUBCUT ×2 (08:30→17:25)
--- NOTE | 2024-09-06 10:06 | PC.CHAP ---
Pastoral Care Encounter/Spiritual Assessment Type of Contact [] Declined clinical documentation manager visit [] Patient/Family/Request visit [] Outpatient visit [] Follow-up visit [] Physician referral [] Code/Alert [x] Routine visit [] Staff referral [] Actively dying [] Patient sleeping [] Family support [] [] Out of room [] Palliative care [] [] Receiving care in room [] Pre-surgical visit [] Trauma [] Long length of stay [] ICU visit [] Other: Relational/Emotional Strength [x] Patient feels connected with others/family/visitors/staff [] Distress [] Loneliness/isolation [] Abandonment Spirituality of Patient [x] Person of Nancy [] Attends [employer] of their Nancy [x] Believes in Prayer [] Reads Bible or Anglican materials [] There are Spiritual issues to be addressed Technical Sales Representatives Interventions [x] Prayer [x] Active listening [] Non-anxious presence [x] Spiritual/emotional support [] Crisis/trauma care [] Spiritual counseling [] Bereavement support [] Provided bereavement packet [] Provided Bible/devotional materials [] Provided toy/stuffed animal, coloring book to patient or family member [] Provided Communion [] Anointing/[place] [] Salvation [x] Completed spiritual assessment [] Other: Impact on Illness or Injury [] Angry [] Fearful [] Anxious [] Often cries [] Exhaustion [] Unable to work [] Unable to attend catholic [] Unable to walk/stand [] Unable to read [] Unable to drive [] Unable to eat/drink [] Unable to sleep [] Unable to be with family [] Patient intubated [] Other: Summary Time spent with patient 5 min
[2024-09-06 11:20] LABS: Glucose Point of Care 144 mg/dL (70-110)
[2024-09-06] MEDS: insulin lispro 100 unit/1 mL SUBCUT ×3 (12:42→21:11)
[2024-09-06 13:12] LABS: Basophils % 0.1 %; Eosinophils # 0.2 10^3/uL (0.0-0.8); Eosinophils % 1.9 %; Hematocrit 52.4 % (36-47); Lymphocytes # 0.7 10^3/uL (0.8-4.8); Lymphocytes % 6.4 %; Mean Corpuscular HGB Conc 30.9 g/dL (30-55); Mean Corpuscular Volume 90.7 fl (85-98); Monocytes # 0.9 10^3/uL (0.2-0.9); Monocytes % 7.6 %; Neutrophils # 9.43 10^3/uL (1.8-7.7); Nucleated Red Blood Cells % 0 %; Platelet Count 132 10^3/cmm (157-399); Red Blood Count 5.78 10^6/uL (3.85-5.65); Red Cell Distribution Width 15.6 % (12.1-15.1); White Blood Count 11.35 10^3/uL (3.29-11.43)
[2024-09-06 13:32] LABS: Alanine Aminotransferase 33 U/L (0-33); Albumin Level 2.9 g/dL (3.5-5.2); Alkaline Phosphatase 57 U/L (35-105); Anion Gap 18.3 (5-19); Aspartate Amino Transferase 18 U/L (0-32); Blood Urea Nitrogen 31 mg/dL (8-23); Calcium 8.2 mg/dL (8.5-10.5); Carbon Dioxide 20 mmol/L (22-29); Chloride 105 mmol/L (98-107); Creatinine Clr Calc Pharmacy 72.9298; Globulin 2.6 g/dL (1.3-4.6); Glucose 269 mg/dL (65-115); Osmolality Calculated 304 mOsm/kg (285-295); Potassium 4.3 mmol/L (3.5-5.1); Sodium 139 mmol/L (136-145); Total Bilirubin 0.7 mg/dL (0.15-1.2); Total Protein 5.5 g/dL (6.6-8.7)
--- NOTE | 2024-09-06 14:14 | P.PN_ITS ---
Subjective 2 Subjective: No acute events overnight. Today morning seen sitting up in chair. Denies any nausea, vomiting, headache. Remains on room air. Goodman catheter was placed yesterday and over a liter of urine was evacuated. Patient has been refusing multiple blood works. Discussed in detail with the patient. She is agreeable for now. Vitals/I&O/Wt Last Vital Signs Temp 99.2 F 09/06/24 12:00 Pulse 86 09/06/24 12:00 Resp 18 09/06/24 12:00 BP 135/69 09/06/24 12:00 Pulse Ox 91 09/06/24 12:00 O2 Del Method Room Air 09/06/24 12:00 O2 Flow Rate 3 09/04/24 19:15 09/05/24 09/06/24 09/06/24 22:59 06:59 14:59 Intake Total 840 / 1428 1360 / 2788 720 / 720 Output Total 2100 / 2100 500 / 2600 800 / 800 Balance -1260 / -672 860 / 188 -80 / -80 Weight last 48 hrs Weight 134.717 kg Weight 135.08 kg Weight 136.191 kg Physical Exam 2 Narrative: General: Morbid obese female in no acute distress. Generalized weakness noted. Chronically sick appearing, smelling of urine, HEENT: Normocephalic, Atraumatic. External ears normal. Nasal passages patent without drainage. MMM. Features of hirsutism present. Heart: Regular rate with irregular rhythm. Resp: Bilateral crackles noted in the lungs, no wheezes or rhonchi. Abd: Soft, non-tender. Distended with hyperactive bowel sounds. Extremities: 1+ LE edema. Skin: Dry and cracked skin on the LE's bilaterally. Neuro: AOx3, no focal deficit, moving all limbs Urinary Catheter Management: Goodman: Cath Placed During This Visit: yes Reason for Continuing Indwelling Catheter: Other Urinary Catheter Date of Insertion: 09/05/24 Urinary Catheter Time of Insertion: 13:40 Data 09/06/24 13:01 09/06/24 13:01 Micro: Microbiology 09/05/24 13:40 Urine Culture - Preliminary Urine,Clean Catch Yeast species 09/05/24 21:00 Blood Culture - Preliminary Blood SPECIMEN COLLECTED 09/05/24 15:17 Blood Culture - Preliminary Blood SPECIMEN COLLECTED A&P Assessment and plan (1) Altered mental status: Resolved. Present on admission. Most likely in setting of dehydration, mild ESPERANZA. Concerns for UTI on admission though patient did not have leukocytosis. No UA present. Continue to monitor. Qualifiers: Altered mental status type: disorientation Qualified Code(s): R41.0 - Disorientation, unspecified (2) Weakness: Most likely in setting of recent COVID-19. Physical therapy. Patient lives with a life partner. Second admission in last 1 month with similar complaints. Discussed about possible discharge to SNF for rehabilitation given morbid obesity, recovering from COVID-19. Patient does not want to entertain SNF for now. Is agreeable for home health. (3) Bilateral hydronephrosis: Seen on CT lumbar. Most likely in setting of urinary retention. Goodman catheter placed. 1 L of urine in Goodman bag immediately on placement. CT abdomen pelvis shows improvement in hydronephrosis. Patient will most likely need to follow-up as an outpatient with urology for further management. Will be discharged with Goodman in place. (4) Recurrent UTI: Appreciate old urine cultures. Concern for UTI on admission given altered mental status. Appreciate urinalysis. Taken while patient was already on antibiotics for more than 24 to 36 hours. Blood cultures finally collected on 09/05. Patient has been declining blood work. Follow-up blood culture and urine culture. Start on fluconazole 2 mg oral daily given history of fungal UTIs in the past. (5) Urinary retention with incomplete bladder emptying: Continue with home dose of oxybutynin. Goodman catheter as above. Will discharge with Goodman in place for at least 2 weeks. Patient will need to follow-up with urology as an outpatient. (6) Atrial fibrillation: Currently rate controlled. Restart home dose of metoprolol and Cardizem. Continue with Eliquis 5 mg twice daily for anticoagulation Qualifiers: Atrial fibrillation type: persistent (not longstanding) Qualified Code(s): I48.19 - Other persistent atrial fibrillation (7) Peripheral arterial disease: (8) Diabetes: Blood sugars better controlled. Ketones negative. Appreciate BMP. No metabolic acidosis. Continue with Lantus at 50 units twice daily. Takes 80 units every afternoon at home. Continue with insulin sliding scale at severe dose protocol. Monitor blood sugars before meals and at bedtime for now. Appreciate recent A1c. Qualifiers: Diabetes mellitus type: type 2 Diabetes mellitus custodial insulin use: with custodial use Diabetes mellitus complication status: with hyperglycemia Qualified Code(s): E11.65 - Type 2 diabetes mellitus with hyperglycemia; Z79.4 - nursing home (current) use of insulin (9) Obesity: Qualifiers: Obesity type: due to excess calories Obesity classification: adult class 3 (BMI >= 40) Serious obesity comorbidity presence: with serious comorbidity Body mass index: BMI 50.0-59.9 Qualified Code(s): E66.813 - Obesity, class 3; E66.01 - Morbid (severe) obesity due to excess calories; Z68.43 - Body mass index [BMI] 50.0-59.9, adult (10) Urgency incontinence: (11) COVID-19: Recovering. Patient is on room air. Finished course of remdesivir. Finished course of dexamethasone. Pulmonary toilet. (12) Back pain: Appreciate CT lumbar done on 09/04. Physical therapy. Qualifiers: Back pain location: low back pain Chronicity: chronic Back pain laterality: bilateral Sciatica presence: with sciatica Sciatica laterality: b ilateral sciatica Qualified Code(s): M54.42 - Lumbago with sciatica, left side; M54.41 - Lumbago with sciatica, right side; G89.29 - Other chronic pain (13) Degenerative lumbar disc: Qualifiers: Disc-related pain type: discogenic back pain and lower extremity pain Qualified Code(s): M51.362 - Other intervertebral disc degeneration, lumbar region with discogenic back pain and lower extremity pain (14) COPD (chronic obstructive pulmonary disease): (15) Thrombocytopenia: Plan Code Status: Full IVF: Given severe hyperglycemia normal saline at 100 cc/h for 1 bag. DVT PPx: Eliquis GI PPx: Protnix ABx: Rocephin Diet: CC Discharge plan: Patient agreeable to SNF placement. Appreciate PT recommendations. Case management alerted. Attestations 2 Medical Necessity Statement*: Requires further hospitalization for management of generalized weakness in setting of recent COVID-19, morbid obesity, urinary retention with severe bilateral hydroureteronephrosis while safe discharge planning is sought Diagnoses Disorientation R41.0 Altered mental status type: disorientation Weakness R53.1 Bilateral hydronephrosis N13.30 Recurrent UTI N39.0 Urinary retention with incomplete bladder emptying R33.9 Persistent atrial fibrillation I48.19 Atrial fibrillation type: persistent (not longstanding) Peripheral arterial disease I73.9 Type 2 diabetes mellitus with hyperglycemia, with long-term current use of insulin E11.65; Z79.4 Diabetes mellitus type: type 2 Diabetes mellitus custodial insulin use: with custodial use Diabetes mellitus complication status: with hyperglycemia Class 3 severe obesity due to excess calories with serious comorbidity and body mass index (BMI) of 50.0 to 59.9 in adult E66.813; E66.01; Z68.43 Obesity type: due to excess calories Obesity classification: adult class 3 (BMI >= 40) Serious obesity comorbidity presence: with serious comorbidity Body mass index: BMI 50.0-59.9 Urgency incontinence N39.41 COVID-19 U07.1 Chronic bilateral low back pain with bilateral sciatica M54.42; M54.41; G89.29 Back pain location: low back pain Chronicity: chronic Back pain laterality: bilateral Sciatica presence: with sciatica Sciatica laterality: bilateral sciatica Degeneration of intervertebral disc of lumbar region with discogenic back pain and lower extremity pain M51.362 Disc-related pain type: discogenic back pain and lower extremity pain COPD (chronic obstructive pulmonary disease) J44.9 Thrombocytopenia D69.6
[2024-09-06] MEDS: cyclobenzaprine 10 mg Tablet 5 MG PO (15:12)
[2024-09-06] MEDS: HYDROcodone-acetaminophen 5-325 mg Tablet 1 TAB PO (15:13)
[2024-09-06 17:00] LABS: Glucose Point of Care 249 mg/dL (70-110)
[2024-09-06] MEDS: cefTRIAXone 1,000 mg SDV 1000 MG IVP (19:48)
[2024-09-06] MEDS: pantoprazole 40 mg SDV IVP (19:48)
[2024-09-06 20:30] LABS: Glucose Point of Care 217 mg/dL (70-110)
[2024-09-07] VITALS: BP 126/84; PULSE 73; RESP 16; TEMP 37; O2SAT 95
[2024-09-07 04:00] VITALS: BP 132/68; PULSE 73; RESP 18; TEMP 37; O2SAT 95
[2024-09-07 06:02] LABS: Glucose Point of Care 185 mg/dL (70-110)
[2024-09-07 07:46] VITALS: BP 145/80; PULSE 81; RESP 20; TEMP 36.4; O2SAT 96
[2024-09-07] MEDS: HYDROcodone-acetaminophen 5-325 mg Tablet 1 TAB PO (07:49)
[2024-09-07] MEDS: cyclobenzaprine 10 mg Tablet 5 MG PO (07:49)
[2024-09-07 08:15] LABS: Alanine Aminotransferase 32 U/L (0-33); Albumin Level 3.2 g/dL (3.5-5.2); Alkaline Phosphatase 61 U/L (35-105); Blood Urea Nitrogen 24 mg/dL (8-23); Carbon Dioxide 23 mmol/L (22-29); Chloride 107 mmol/L (98-107); Creatinine Clr Calc Pharmacy 91.3079; Glucose 161 mg/dL (65-115); Osmolality Calculated 300 mOsm/kg (285-295); Sodium 141 mmol/L (136-145); Total Bilirubin 0.7 mg/dL (0.15-1.2); Total Protein 5.2 g/dL (6.6-8.7)
[2024-09-07 08:18] LABS: Anion Gap 16.2 (5-19); Aspartate Amino Transferase 19 U/L (0-32); Potassium 5.2 mmol/L (3.5-5.1)
[2024-09-07 08:25] LABS: Basophils % 0.1 %; Eosinophils # 0.2 10^3/uL (0.0-0.8); Eosinophils % 2.2 %; Hematocrit 51.5 % (36-47); Lymphocytes # 1.2 10^3/uL (0.8-4.8); Mean Corpuscular HGB Conc 31.8 g/dL (30-55); Mean Corpuscular Hemoglobin 28.5 pg (27-33); Mean Corpuscular Volume 89.6 fl (85-98); Mean Platelet Volume 12.2 fL (7.4-10.4); Monocytes % 10.9 %; Neutrophils # 7.05 10^3/uL (1.8-7.7); Neutrophils % 73.8 %; Nucleated Red Blood Cells % 0 %; Platelet Count 127 10^3/cmm (157-399); Red Blood Count 5.75 10^6/uL (3.85-5.65); Red Cell Distribution Width 15.8 % (12.1-15.1); White Blood Count 9.56 10^3/uL (3.29-11.43)
--- NOTE | 2024-09-07 09:12 | PC.NURSE ---
Morning medications being administered by [facility] RN nursing home physician and their instructor.
[2024-09-07] MEDS: dilTIAZem ER (24HR) 240 mg Capsule PO (09:18)
[2024-09-07] MEDS: metoprolol tartrate 25 mg Tablet 12.5 MG PO (09:19)
[2024-09-07] MEDS: apixaban 5 mg Tablet PO (09:20)
[2024-09-07] MEDS: aspirin 81 mg EC Tablet PO (09:22)
[2024-09-07] MEDS: oxybutynin chloride XL 5 MG TABLET 15 MG PO (09:23)
[2024-09-07] MEDS: fluconazole 100 mg Tablet 200 MG PO (09:23)
[2024-09-07] MEDS: insulin lispro 100 unit/1 mL SUBCUT ×2 (09:27→11:28)
[2024-09-07] MEDS: insulin glargine 100 units/1 mL 50 UNIT SUBCUT (09:31)
[2024-09-07 11:05] LABS: Glucose Point of Care 258 mg/dL (70-110)
[2024-09-07 11:59] VITALS: BP 108/70; PULSE 84; RESP 17; TEMP 36.8; O2SAT 95
--- NOTE | 2024-09-07 12:03 | PC.SOCIAL ---
IMM Updated Updated pt on IMM. No questions voiced. Provided pt a copy. Initialed, dated, & timed a copy & placed in chart.
--- NOTE | 2024-09-07 12:38 | P.DS_ITS ---
Discharge Providers Date of Admission: 09/04/24 20:05 Date of Discharge: September 07, 2024 Attending Provider at Admission: Sebastián Sierra DO Attending Provider at Discharge: Aldo Mckinney MD Primary Care Provider: Ajay Robertson DO Diagnoses at Discharge Discharge Diagnosis (1) Altered mental status: Status: Acute Qualifiers: Altered mental status type: disorientation Qualified Code(s): R41.0 - Disorientation, unspecified (2) Weakness: Status: Acute (3) Bilateral hydronephrosis: Status: Acute (4) Recurrent UTI: Status: Acute (5) Urinary retention with incomplete bladder emptying: Status: Acute (6) Atrial fibrillation: Status: Acute Qualifiers: Atrial fibrillation type: persistent (not longstanding) Qualified Code(s): I48.19 - Other persistent atrial fibrillation (7) Peripheral arterial disease: Status: Acute (8) Diabetes: Status: Acute Qualifiers: Diabetes mellitus complication status: with hyperglycemia Diabetes mellitus fdc insulin use: with fdc use Diabetes mellitus type: type 2 Qualified Code(s): E11.65 - Type 2 diabetes mellitus with hyperglycemia; Z79.4 - emt intermediate (current) use of insulin (9) Obesity: Status: Acute Qualifiers: Body mass index: BMI 50.0-59.9 Obesity classification: adult class 3 (BMI >= 40) Obesity type: due to excess calories Serious obesity comorbidity presence: with serious comorbidity Qualified Code(s): E66.813 - Obesity, class 3; E66.01 - Morbid (severe) obesity due to excess calories; Z68.43 - Body mass index [BMI] 50.0-59.9, adult (10) Urgency incontinence: Status: Chronic (11) COVID-19: Status: Acute (12) Back pain: Status: Acute Qualifiers: Back pain laterality: bilateral Back pain location: low back pain Chronicity: chronic Sciatica laterality: bilateral sciatica Sciatica presence: with sciatica Qualified Code(s): M54.42 - Lumbago with sciatica, left side; M54.41 - Lumbago with sciatica, right side; G89.29 - Other chronic pain (13) Degenerative lumbar disc: Status: Acute Qualifiers: Disc-related pain type: discogenic back pain and lower extremity pain Qualified Code(s): M51.362 - Other intervertebral disc degeneration, lumbar region with discogenic back pain and lower extremity pain (14) COPD (chronic obstructive pulmonary disease): Status: Acute (15) Thrombocytopenia: Status: Acute Reason for Visit Reason for Visit: weakness; falls Brief History: History as per HPI: Kay Munroe is a 74 year old female with PMH of recent COVID infection, TIIDM, Obesity, a-fib, HTN, chronic urinary retention, GERD, COPD, who presented to ER today for altered mental status, low back pain and leg weakness after multiple falls, generalized weakness, urinary incontinence. Partner states that for the last few weeks, patient has had difficulties recovering for COVID infection. States that she has had problems with progressive weakness, leg pain and numbness and overall decline in health. Reports that he has had to have EMS come to help her up on several occasions over the last few weeks. Reports that he is concerned she has UTI as she has foul smelling urine and no control over her bladder. In addition, she has had shortness of breath and inability to walk or transfer without assistance. He states that he is no longer able to care for her. States that he is also concerned that she may need rehab or possible SNF placement as he is unable to lift her or help with her ADL's due to her decline. In the ER, labs showed low platelets to 144k, Cr at 1.1, BUN at 44 and slight elevation LFT's. CT lumbar spine showed bilateral hydronephrosis, moderate to severe. Goodman catheter and cultures were obtained. Patient was admitted to [facility] for further workup. Hospital Course Hospital Course Patient was admitted to the hospital further evaluation and management. She was found to have significant urinary retention with severe bilateral hydroureteronephrosis. Goodman catheter was placed and over 1 L of urine was evacuated. Her renal function during hospitalization improved and are back to baseline for last 24 to 48 hours. Patient did have significant deconditioning more than usual most likely in setting of recent COVID-19. There was a concern for UTI on admission. Her UA remained negative but given her significant bilateral hydroureteronephrosis, Goodman catheter in place status with history of multiple fungal UTI and past decision was made to continue fluconazole. See discharge plan were discussed in detail with the patient and she requested to be transition to SNF. She has been discharged hemodynamically stable condition to SNF with Goodman catheter in place. She is to follow-up with urology within next 2 weeks for further evaluation and management of significant urine retention. Goodman catheter remains in place for more than 1 month that needs to be replaced. Physical Exam Narrative: General: Morbid obese female in no acute distress. Generalized weakness noted. Chronically sick appearing, smelling of urine, HEENT: Normocephalic, Atraumatic. External ears normal. Nasal passages patent without drainage. MMM. Features of hirsutism present. Heart: Regular rate with irregular rhythm. Resp: Bilateral crackles noted in the lungs, no wheezes or rhonchi. Abd: Soft, non-tender. Distended with hyperactive bowel sounds. Extremities: 1+ LE edema. Skin: Dry and cracked skin on the LE's bilaterally. Neuro: AOx3, no focal deficit, moving all limbs Urinary Catheter Management: Goodman: Cath Placed During This Visit: yes Reason for Continuing Indwelling Catheter: Other Urinary Catheter Date of Insertion: 09/05/24 Urinary Catheter Time of Insertion: 13:40 Discharge Data Studies Completed and Pending Completed Studies During Hospitalization Category Date Time Status CT abdomen pelvis wo con [id number] Routine Cat Scan 09/05/24 12:[address] lumbar spine wo con* [id number] Stat Cat Scan 09/04/24 16:25 Completed CXRP [XR chest 1V portable [id number]] Stat Exams 09/04/24 16:25 Completed Pending at discharge Category Date Time Status Blood Culture Stat Lab 09/04/24 16:25 Results Urine Culture Stat Lab 09/05/24 13:40 Results Radiology Impressions Chest X-Ray 09/04/24 16:25 IMPRESSION: 1. No acute findings. 2. Stable chronic findings include the pleural-based mass right lung apex, cardiomegaly and increased density obscuring the left heart border due to prominent apical fat pad. Lumbar Spine CT 09/04/24 16:25 IMPRESSION: 1. There is bilateral symmetric moderate to severe hydronephrosis and hydroureter with mild periureteral fat stranding. Urinary bladder is very distended. This appearance may reflect obstruction from difficulty voiding or distal mass not visualized on this exam. Ultrasound after voiding/bladder catheterization to confirm resolution of hydronephrosis or CT scan abdomen and pelvis may be helpful for further evaluation. 2. No acute bony abnormality. There are degenerative changes in the spine. Abdomen/Pelvis CT 09/05/24 12:12 IMPRESSION: 1. Marked improvement in the previously described bilateral hydro ureteronephrosis as compared to 09/04/2024. Interval insertion of a Goodman catheter with decompression of the urinary bladder. 2. There is still mild RIGHT hydronephrosis and perinephric stranding. No ureteral calcification. 3. Resolved LEFT hydronephrosis. Microbiology 09/05/24 21:00 Blood Blood Culture - Preliminary NEGATIVE TO DATE 09/05/24 15:17 Blood Blood Culture - Preliminary NEGATIVE TO DATE 09/05/24 13:40 Urine,Clean Catch Urine Culture - Preliminary Yeast species Laboratory Results WBC 9.56 10^3/uL (3.29-11.43) 09/07/24 07:44 Corrected WBC Cancelled 09/05/24 21:00 RBC 5.75 10^6/uL (3.85-5.65) H 09/07/24 07:44 Hgb 16.40 g/dL (11.27-16.99) 09/07/24 07:44 Hct 51.5 % (36-47) H 09/07/24 07:44 MCV 89.6 fl (85-98) 09/07/24 07:44 MCH 28.5 pg (27-33) 09/07/24 07:44 MCHC 31.8 g/dL (30-55) 09/07/24 07:44 RDW 15.8 % (12.1-15.1) H 09/07/24 07:44 Plt Count 127 10^3/cmm (157-399) L 09/07/24 07:44 MPV 12.2 fL (7.4-10.4) H 09/07/24 07:44 Gran % Cancelled 09/05/24 21:00 Neut % (Auto) 73.8 % 09/07/24 07:44 Lymph % (Auto) 12.0 % 09/07/24 07:44 [place] % (Auto) 10.9 % 09/07/24 07:44 Eos % (Auto) 2.2 % 09/07/24 07:44 Baso % (Auto) 0.1 % 09/07/24 07:44 Neut # (Auto) 7.05 10^3/uL (1.8-7.7) 09/07/24 07:44 Lymph # (Auto) 1.2 10^3/uL (0.8-4.8) 09/07/24 07:44 [place] # (Auto) 1.0 10^3/uL (0.2-0.9) H 09/07/24 07:44 Eos # (Auto) 0.2 10^3/uL (0.0-0.8) 09/07/24 07:44 Baso # (Auto) 0.0 10^3/uL (0.0-0.1) 09/07/24 07:44 Absolute Gran (auto) Cancelled 09/05/24 21:00 Nucleated RBC % (auto) 0 % 09/07/24 07:44 Nucleated RBCs # 0.0 /100WBC 09/07/24 07:44 Sodium 141 mmol/L (136-145) 09/07/24 07:44 Potassium 5.2 mmol/L (3.5-5.1) H 09/07/24 07:44 Chloride 107 mmol/L (98-107) 09/07/24 07:44 Carbon Dioxide 23 mmol/L (22-29) 09/07/24 07:44 Anion Gap 16.2 (5-19) 09/07/24 07:44 BUN 24 mg/dL (8-23) H 09/07/24 07:44 Creatinine 0.8 mg/dL (0.5-0.9) 09/07/24 07:44 GFR Calculation Not Reportable 09/07/24 07:44 Glucose 161 mg/dL (65-115) H 09/07/24 07:44 POC Glucose 258 mg/dL (70-110) H 09/07/24 10:28 Calculated Osmolality 300 mOsm/kg (285-295) H 09/07/24 07:44 Calcium 8.0 mg/dL (8.5-10.5) L 09/07/24 07:44 Phosphorus Cancelled 09/05/24 21:00 Magnesium Cancelled 09/05/24 21:00 Total Bilirubin 0.7 mg/dL (0.15-1.2) 09/07/24 07:44 AST 19 U/L (0-32) 09/07/24 07:44 ALT 32 U/L (0-33) 09/07/24 07:44 Alkaline Phosphatase 61 U/L (35-105) 09/07/24 07:44 Total Protein 5.2 g/dL (6.6-8.7) L 09/07/24 07:44 Albumin 3.2 g/dL (3.5-5.2) L 09/07/24 07:44 Globulin 2.0 g/dL (1.3-4.6) 09/07/24 07:44 Procalcitonin Cancelled 09/05/24 21:00 TSH Cancelled 09/05/24 21:00 Urine Color Yellow (Yellow) 09/05/24 13:40 Urine Appearance Turbid (CLEAR) A 09/05/24 13:40 Urine pH 5.0 (5-7) 09/05/24 13:40 Ur Specific [place] 1.018 (1.005-1.030) 09/05/24 13:40 Urine Protein 1+ (Negative) A 09/05/24 13:40 Urine Glucose (UA) 3+ (Normal) H 09/05/24 13:40 Urine Ketones Negative (Negative) 09/05/24 13:40 Urine Blood 2+ (Negative) A 09/05/24 13:40 Urine Nitrate Negative (Negative) 09/05/24 13:40 Urine Bilirubin Negative (Negative) 09/05/24 13:40 Urine Urobilinogen 0.2 mg/dL (Negative) 09/05/24 13:40 Ur Leukocyte Esterase 2+ (Negative) A 09/05/24 13:40 Urine RBC 3-5 /hpf (0-2) 09/05/24 13:40 Urine WBC >100 /hpf (0-5) H 09/05/24 13:40 Ur Squamous Epith Cells 0-5 /hpf (0-5) 09/05/24 13:40 Amorphous Sediment Not Reportable 09/05/24 13:40 Urine Bacteria None seen /hpf (NONE) 09/05/24 13:40 Hyaline Casts 0-4 /lpf H 09/05/24 13:40 Urine Yeast 2+ /hpf H 09/05/24 13:40 Serum Ketones Negative (Negative) 09/05/24 21:00 Vitals Last Vital Signs Temp 98.2 F 09/07/24 11:59 Pulse 84 09/07/24 11:59 Resp 17 09/07/24 11:59 BP 108/70 09/07/24 11:59 Pulse Ox 95 09/07/24 11:59 O2 Del Method Nasal Cannula 09/07/24 11:59 O2 Flow Rate 3 09/04/24 19:15 Discharge Plan Discharge Patient Disposition: Home Condition: Stable Prescriptions: New fluconazole 100 mg Tablet 200 mg PO DAILY 10 Days Qty: 20 0RF Continued cyclobenzaprine 5 mg tablet 5 mg PO BID PRN (Reason: Muscle Spasm) loratadine [Claritin] 10 mg tablet 10 mg PO DAILY PRN (Reason: ALLERGIES) oxybutynin chloride 15 mg tablet extended release 24hr 15 mg PO DAILY metoprolol tartrate 25 mg tablet 12.5 mg PO BID (DME) cpap See Rx Instructions .Route .MEDSUPPLY Qty: 1 0RF Rx Instructions: As directed Eliquis 5 mg tablet 5 mg PO BID Qty: 180 3RF bupropion HCl 75 mg tablet 75 mg PO BID Qty: 180 3RF Hold Instructions: Resume on 03/14/24. aspirin 81 mg Tablet,Delayed Release (Dr/Ec) 81 mg PO DAILY pantoprazole [Protonix] 40 mg tablet,delayed release (DR/EC) 40 mg PO QAM Qty: 60 0RF Rx Instructions: Twice daily for next 2 weeks followed by once daily fluticasone propion-salmeterol [Advair Diskus] 250-50 mcg/dose blister with device 1 inh inhalation Q12H Qty: 60 0RF Spiriva Respimat 2.5 mcg/actuation mist 2 inh inhalation QAM Qty: 4 0RF diltiazem HCl 240 mg Capsule,Extended Release 24 Hr 240 mg PO DAILY Qty: 30 0RF lisinopril 40 mg Tablet 20 mg PO DAILY Qty: 30 0RF Changed insulin aspart U-100 100 unit/mL (3 mL) Insulin Pen See Protocol SUBCUT TID Qty: 15 0RF Protocol: Insulin Corrective High-Dose Regimen Condition: Fingerstick Blood Glucose Dose/Route: Insulin Units Condition: 141-180 mg/dl Dose/Route: 4 units/SQ Condition: 181-220 mg/dl Dose/Route: 6 units/SQ Condition: 221-260 mg/dl Dose/Route: 8 units/SQ Condition: 261-300 mg/dl Dose/Route: 10 units/SQ Condition: 301-350 mg/dl Dose/Route: 12 units/SQ Condition: 351-400 mg/dl Dose/Route: 14 units/SQ Condition: greater than 400 mg/dl Dose/Route: 16 units/SQ insulin glargine-yfgn 100 unit/mL (3 mL) Insulin Pen 50 unit SUBCUT BID Qty: 15 0RF Rx Instructions: 80 units at bedtime at the same time each day Discontinued Jardiance 25 mg tablet 25 mg PO QAM dexamethasone 6 mg tablet 6 mg PO Q24H Qty: 5 0RF Rx Instructions: for up to 10 days Discharge Orders: Discharge Order (Routine); Ordered 09/07/24 Ordered By: Aldo Mckinney Referrals: Buddy Miller [Referring] - 2 weeks (We have notified your physician's clinic of the need for a follow-up appointment to be scheduled. If you have not heard from them within the next 2 business days, please call them directly. SENT REFERRAL) Ajay Robertson DO [Primary Care Provider] - 7-10 days Discharge Diet: Diabetic Discharge Activity: Resume usual activity and Increase activity as tolerated Patient Instructions: Fluconazole (By mouth), Chronic Urinary Retention in Women (GEN), Opioid Safety Activity Restrictions/Additional Instructions: Follow-up with your primary care provider within next 2 weeks. Goal blood pressure of less than 140/90 mmHg. Follow-up with urology within next 2 to 3 weeks. If Goodman catheter remains in place for more than 1 month should be replaced. Given concerns for recurrent fungal UTI for now we will hold off on Jardiance. Dose of Lantus has been changed to 50 mg twice daily. Dose of Humalog has been changed to 3 times a day as per sliding scale which has been provided. Discharge Attestations Time Spent in Discharge Care*: greater than 30 min Specific Discharge Activities: educating patient, discussing with pcp/other providers, discussing with human services case manager/social workers/dc planners, documenting/other paperwork and evaluating patient/reviewing data Status at Discharge: Cognitive status at discharge: cognitively intact , Behavioral status at discharge: cooperative and can be uncooperative , Functional status at discharge: uses cane/walker , Overall status at discharge: patient is back to baseline Quality Metrics Clinical Quality Measures [ No reported AMI, CVA or VTE this stay] Coding Level of Care Code 95931 Total time (in minutes) for Discharge: 60 Diagnoses Disorientation R41.0 Altered mental status type: disorientation Weakness R53.1 Bilateral hydronephrosis N13.30 Recurrent UTI N39.0 Urinary retention with incomplete bladder emptying R33.9 Persistent atrial fibrillation I48.19 Atrial fibrillation type: persistent (not longstanding) Peripheral arterial disease I73.9 Type 2 diabetes mellitus with hyperglycemia, with long-term current use of insulin E11.65; Z79.4 Diabetes mellitus complication status: with hyperglycemia 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 Diabetes mellitus type: type 2 Class 3 severe obesity due to excess calories with serious comorbidity and body mass index (BMI) of 50.0 to 59.9 in adult E66.813; E66.01; Z68.43 Body mass index: BMI 50.0-59.9 Obesity classification: adult class 3 (BMI >= 40) Obesity type: due to excess calories Serious obesity comorbidity presence: with serious comorbidity Urgency incontinence N39.41 COVID-19 U07.1 Chronic bilateral low back pain with bilateral sciatica M54.42; M54.41; G89.29 Back pain laterality: bilateral Back pain location: low back pain Chronicity: chronic Sciatica laterality: bilateral sciatica Sciatica presence: with sciatica Degeneration of intervertebral disc of lumbar region with discogenic back pain and lower extremity pain M51.362 Disc-related pain type: discogenic back pain and lower extremity pain COPD (chronic obstructive pulmonary disease) J44.9 Thrombocytopenia D69.6
--- NOTE | 2024-09-07 13:10 | PC.NURSE ---
This nurse called report to MICHAEL Rome at [facility] at 1308. Pt awaiting life partner to pick her up to transport her to their facility.
== END 2024-09-07 14:08 | disposition skilled nursing facility (03) | DRG 694 ==
LOC: ER 20:13 → MEDSURG 21:23
PROVIDERS: Admitting Provider Family Medicine; Emergency Provider Emergency Medicine; PCP Family Medicine; Visit Provider Student in an Organized Health Care Education/Training Program
DX: N13.30 Unspecified hydronephrosis (principal); I48.19 Other persistent atrial fibrillation; Z68.42 Body mass index [BMI] 45.0-49.9, adult; R41.82 Altered mental status, unspecified; Z87.440 Personal history of urinary (tract) infections; R33.9 Retention of urine, unspecified; E11.51 Type 2 diabetes mellitus with diabetic peripheral angiopathy without gangrene; E11.65 Type 2 diabetes mellitus with hyperglycemia; E66.813 Obesity, class 3; Z86.16 Personal history of COVID-19; M54.42 Lumbago with sciatica, left side; M54.41 Lumbago with sciatica, right side; J44.9 Chronic obstructive pulmonary disease, unspecified; D69.6 Thrombocytopenia, unspecified; Z79.01 Long term (current) use of anticoagulants; Z79.82 Long term (current) use of aspirin; Z79.4 Long term (current) use of insulin; Z86.73 Personal history of transient ischemic attack (TIA), and cerebral infarction without residual deficits; G47.33 Obstructive sleep apnea (adult) (pediatric); T38.3X6A Underdosing of insulin and oral hypoglycemic [antidiabetic] drugs, initial encounter; Z91.128 Patient's intentional underdosing of medication regimen for other reason
CPT/HCPCS: 36415; 36416; 51702; 71045; 72131; 74176; 80053; 81001; 82009; 82962; 85025; 87040; 87086; 93005; 96372; 96374; 96375; 97161; 97167; 97530; 99285; J0696; J1200; J1630; J1815; J2060; J2470; J7030

== ENCOUNTER 2024-11-09 13:19 | Emergency (ER) | payer OTHER, MEDICARE, SELFPAY ==
[2024-11-09] VITALS (7 sets, daily range): BP systolic 123–148; BP diastolic 76–89; PULSE 78–88; RESP 18; O2SAT 95–97
--- NOTE | 2024-11-09 13:23 | ECG_ITS ---
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 Measurements Intervals [place] Rate: 82 P: 0 SC: 0 QRS: 22 QRSD: 94 T: 72 QT: 395 QTc: 462 Interpretive Statements ATRIAL FIBRILLATION LOW QRS VOLTAGE IN PRECORDIAL LEADS [QRS DEFLECTION < 1.0 mV IN CHEST LEADS] ANTEROSEPTAL MYOCARDIAL INFARCTION , PROBABLY OLD [40+ ms Q WAVE IN V1-V4] Compared to ECG 09/04/2024 13:33:38 Low QRS voltage now present Atrial flutter no longer present Myocardial infarct finding still present Electronically Signed On 11-09-2024 19:26:20 CDT by Jose Sierra M.D. [email or web address]
--- NOTE | 2024-11-09 13:34 | XR_ITS ---
WS: [id number] Exam: XR chest 1V portable [id number] Date/Time of Exam: 11/09/2024 1:34 PM Reason For Exam: cough/celestino/fever Comparison 09/04/2024. The lungs are fully expanded and clear. Cardiac enlargement unchanged. No pleural effusions. Prominent fat pad along the LEFT heart border. Again noted is a pleural-based soft tissue density in the RIGHT pleural apex. It is unchanged Bony structures are unremarkable. XR/XR chest 1V portable [id number] IMPRESSION: 1. No acute finding. 2. Cardiac enlargement unchanged. Pleural-based soft tissue density in the RIGH T pulmonary apex stable in appearance.
--- NOTE | 2024-11-09 13:34 | CT_ITS ---
WS: [id number] CT HEAD TECHNIQUE: Noncontrast CT of the head obtained from the skullbase to the vertex. CLINICAL INFORMATION: AMS COMPARISON: 2019 DLP: 1043.[address] scans at [facility] use at least one of these dose optimization techniques: automated exposure control; mA and/or kV adjustment per patient size (includes targeted exams where dose is matched to clinical indication); or iterative reconstruction. FINDINGS: No evidence of intracranial hemorrhage or mass effect. Ventricular system and basal cisterns are patent. Moderate small vessel changes with moderate parenchymal volume loss. No extra-axial fluid collections. Chronic encephalomalacia in the LEFT parasagittal parietal lobe. Mild mucosal thickening paranasal sinuses. Mastoid air cells are well aerated. Vascular calcification. CT/CT head wo con* [id number] IMPRESSION: 1. No evidence of intracranial hemorrhage or mass effect. 2. No acute intracranial findings.
--- NOTE | 2024-11-09 13:37 | W.ED.AMS ---
HPI - Altered Mental Status General: Chief Complaint: Altered Mental Status Stated Complaint: AMS Time Seen by Provider: 11/09/24 13:27 Source: patient and EMS Mode of arrival: EMS Limitations: altered mental status History of Present Illness: 74yo female presents from care facility for evaluation of altered mental status. Per EMS, nursing staff at the facility noted that she was acting somewhat abnormal last night. States that she did have a fever earlier today. Reports that she has had cough and congestion for the last several days. Also reports she has a headache. States she is on 2 L oxygen via nasal cannula at the facility. EMS did increase to 4 L nasal cannula en route. EMS also notes a strong urine odor. Patient does not have any complaints at this time. She is noted to be somewhat confused. She does note that she is in a hospital, but does not know why she is here and wishes to go back home. Patient reports that she is eating and drinking if she is fed and given something to drink. States she is mobile at the facility. She denies difficulty breathing, chest pain, abdominal pain, vomiting, diarrhea, dysuria, flank pain, any other concerns at this time. Related Data Home Medications ?Medication ?Instructions ?Recorded ?Confirmed loratadine 10 mg tablet (Claritin) 10 mg PO DAILY PRN ALLERGIES 08/22/19 11/09/24 metoprolol tartrate 25 mg tablet 12.5 mg PO BID 08/22/19 11/09/24 cyclobenzaprine 5 mg tablet 5 mg PO BID PRN Muscle Spasm 03/01/20 11/09/24 aspirin 81 mg tablet,delayed 81 mg PO DAILY 03/10/24 11/09/24 release acetaminophen 325 mg tablet 650 mg PO Q4H PRN general 11/09/24 11/09/24 discomfort lisinopril 20 mg tablet 20 mg PO DAILY 11/09/24 11/09/24 nystatin 100,000 unit/gram topical 1 applic topical BID PRN yeast 11/09/24 11/09/24 powder type rash olanzapine 5 mg tablet 5 mg PO BID 11/09/24 11/09/24 pantoprazole 40 mg tablet,delayed 40 mg PO BID 11/09/24 11/09/24 release (Protonix) sennosides 8.6 mg-docusate sodium 1 tab PO BID 11/09/24 11/09/24 50 mg tablet (Senna Plus) tramadol 50 mg tablet 50 mg PO Q6H PRN Pain 11/09/24 11/09/24 Previous Rx's ?Medication ?Instructions ?Recorded cpap #1 ea 03/20/22 apixaban 5 mg tablet (Eliquis) 5 mg PO BID anticoagulation #180 05/31/24 tabs diltiazem HCl 240 mg capsule,24 240 mg PO DAILY #30 caps 08/27/24 hr,extended release fluticasone 250 mcg-salmeterol 50 1 inh inhalation Q12H #60 ea 08/27/24 mcg/dose blistr powdr for inhalation (Advair Diskus) tiotropium bromide 2.5 2 inh inhalation QAM #4 grams 08/27/24 mcg/actuation mist for inhalation (Spiriva Respimat) insulin aspart U-100 100 unit/mL See Protocol SUBCUT TID #15 mL 09/07/24 (3 mL) subcutaneous pen insulin glargine-yfgn 100 unit/mL 50 unit (0.5 mL) SUBCUT BID #15 mL 09/07/24 (3 mL) subcutaneous pen oseltamivir 75 mg capsule (Tamiflu) 75 mg PO BID 5 days #10 caps 11/09/24 Allergies Allergy/AdvReac Type Severity Reaction Status Date / Time Penicillins AdvReac nausea/vomi Verified 08/22/24 17:24 ting [id number] Reductase AdvReac muscle pain Verified 08/22/24 17:24 Inhibitor (Eusqsil-Lma-Ras Reductase Inhibitor) Review of Systems Const: Reports: fever(s) Card: Denies: chest pain Resp: Reports: productive cough; Denies: dyspnea GI: Denies: abdominal pain, vomiting or diarrhea : Denies: flank pain or dysuria Neuro: Reports: headache(s) PFSH ED PFSH: Medical History Postmenopausal bleeding Hematuria Urinary tract infection Urgency incontinence Recurrent UTI CVA (cerebral vascular accident) Anticoagulation adequate with anticoagulant therapy Diabetes Obesity Obstructive sleep apnea Atrial fibrillation Chronic ischemia posterior cerebral artery stroke This patient has a 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 She has chronic atrial fibrillation, morbid obesity, poorly controlled diabetes with poor compliance on diet, hypertension that is under poor control and recurrent episodes that have brought her to the emergency department with transient neurologic symptoms and no residual. She has chronic findings of right homonymous hemianopsia from her previous left posterior cerebral artery stroke. Her is heavily invested in her care and motivated to help her with compliance on diet and exercise. She was recently started on Zetia. Her blood pressure and lipids will be managed by Dr. Wilson. I have nothing further to add. Her is very concerned that she is not keeping up with her fluids and I advise she should drink water at an appropriate amount. Getting her off of hydrochlorothiazide will probably help. I have nothing further to add. Surgical History Hx of tonsillectomy Hx of appendectomy Family History Father , IN HIS LATE 50'S No problems noted. Mother , AT AGE 65 Hypertension Grandmother Breast cancer maternal Sister Diabetes Hypertension Denies family history of Colon cancer Ovarian cancer Heart disease Hypercholesteremia Uterine cancer Thyroid disease Stroke Social History Smoking and tobacco/nicotine status: never used tobacco/nicotine Substance/Drug Use: unknown Physical Exam Const: COMMON NORMALS: no acute distress and alert EXAM LIMITATIONS: altered mental status GENERAL APPEARANCE: cooperative and comfortable NUTRITIONAL APPEARANCE: obese ORIENTATION/CONSCIOUSNESS: Yes confused OTHER: Patient is sitting upright on the stretcher with a nasal cannula in place. She is able to give some history with no difficulty, but is confused about other history. No family is at bedside HENMT: COMMON NORMALS: normocephalic and atraumatic HEAD & SCALP: normocephalic and atraumatic Eye: GENERAL EYE: appearance normal, both eyes and all related structures Neck/C-Spine: COMMON NORMALS: full ROM Resp: COMMON NORMALS: normal respiratory effort EFFORT & INSPECTION: Yes symmetric chest movement, No tachypneic, No respiratory distress and Yes Actively coughing loose Cardio: RHYTHM: abnormal rhythm irregularly irregular GI: COMMON NORMALS: Soft to palpation and non-tender PALPATION: Yes Soft to palpation : COMMON NORMALS: Yes no CVA tenderness BLADDER/KIDNEY EXAM: Yes no CVA tenderness Back/Pelvis: COMMON NORMALS: no CVA tenderness Neuro: THAI COMA SCALE: document GCS findings Wellman coma scale eye opening: Spontaneous Wellman coma scale verbal response: Confused Thai coma scale motor response: Obey commands Wellman coma scale total score: 14 SENSORIUM/ORIENTATION: Yes alert Psych: COMMON NORMALS: cooperative APPEARANCE: Yes grossly normal ATTITUDE: Yes calm Sepsis: Is patient septic: No Course Reevaluation(s): Reevaluation #1: Notified by nurse that patient attempted to strike both nurse and student with in and out catheterization. Patient then refused to have the In-N-Out catheterization for the urine sample. Discussed with patient that she is positive for influenza A, but we cannot rule out a urinary tract infection at this time. Discussed with patient that we do have concerns of a urinary tract infection, but patient is steadfastly refusing to have a sample collected. Discussed that we would begin treatment for influenza A, but she would need to monitor her symptoms and potentially have her urine tested for infection. Patient does state understanding. There is no family at bedside. Will proceed with discharge back to her facility. Time: 15:45 Vital Signs: Vital signs: Vital Signs Pulse Rate 82 11/09/24 13:27 Respiratory Rate 18 11/09/24 13:27 Blood Pressure 123/78 11/09/24 13:27 Pulse Oximetry 97 11/09/24 13:27 Oxygen Delivery Me thod Nasal Cannula 11/09/24 13:27 Oxygen Flow Rate 4 11/09/24 13:27 MDM - Altered Mental Status Medical Decision Making 74yo female presents from care facility for evaluation of altered mental status. Per EMS, nursing staff at the facility noted that she was acting somewhat abnormal last night. States that she did have a fever earlier today. Reports that she has had cough and congestion for the last several days. Also reports she has a headache. States she is on 2 L oxygen via nasal cannula at the facility. EMS did increase to 4 L nasal cannula en route. EMS also notes a strong urine odor. Patient does not have any complaints at this time. She is noted to be somewhat confused. She does note that she is in a hospital, but does not know why she is here and wishes to go back home. Patient reports that she is eating and drinking if she is fed and given something to drink. States she is mobile at the facility. She denies difficulty breathing, chest pain, abdominal pain, vomiting, diarrhea, dysuria, flank pain, any other concerns at this time. Patient is pleasantly confused, but nontoxic. Vital signs are stable. Differential diagnoses include but are not limited to: Acute cystitis, pneumonia, viral infection, ICH, hypoglycemia, sepsis No leukocytosis or indication of anemia, white blood cell count noted to be 5.03 and hemoglobin 13.7. No significant electrolyte, renal, or hepatic abnormalities noted. Blood glucose is noted to be 210. Chest x-ray with no acute findings. Pleural-based soft tissue density in the right pulmonary apex is stable. CT of the head with no evidence of ICH, no acute intracranial findings. Influenza A positive, COVID-19 and RSV negative. AMS likely related to fever and Influenza infection. that patient started with a fever last night, will proceed with Tamiflu, prescription sent to patient's pharmacy. Patient refused urine collection despite concern of urinary tract infection with the foul urine odor on the patient and in the room. Discussed that she would need to monitor her symptoms and possibly have her urine tested at her facility. Patient is stable for discharge, oral temp 98.9. Recommend she follow-up with primary care, call in the next 1 to 2 days with an update of symptoms and to discuss recheck. Return precautions provided. Patient states understanding and has no further questions or concerns at this time. Medical Records I reviewed the patient's medical records. Lab Data I reviewed the patient's lab results. 11/09/24 14:14 11/09/24 14:14 Radiology Impressions Chest X-Ray 11/09/24 13:34 IMPRESSION: 1. No acute finding. 2. Cardiac enlargement unchanged. Pleural-based soft tissue density in the RIGHT pulmonary apex stable in appearance. Head CT 11/09/24 13:34 IMPRESSION: 1. No evidence of intracranial hemorrhage or mass effect. 2. No acute intracranial findings. Laboratory Results WBC 5.03 10^3/uL (3.29-11.43) 11/09/24 14:14 RBC 4.93 10^6/uL (3.85-5.65) 11/09/24 14:14 Hgb 13.70 g/dL (11.27-16.99) 11/09/24 14:14 Hct 44.7 % (36-47) 11/09/24 14:14 MCV 90.7 fl (85-98) 11/09/24 14:14 MCH 27.8 pg (27-33) 11/09/24 14:14 MCHC 30.6 g/dL (30-55) 11/09/24 14:14 RDW 16.1 % (12.1-15.1) H 11/09/24 14:14 Plt Count 138 10^3/cmm (157-399) L 11/09/24 14:14 MPV 11.9 fL (7.4-10.4) H 11/09/24 14:14 Neut % (Auto) 76.2 % 11/09/24 14:14 Lymph % (Auto) 11.7 % 11/09/24 14:14 [place] % (Auto) 10.9 % 11/09/24 14:14 Eos % (Auto) 0.6 % 11/09/24 14:14 Baso % (Auto) 0.2 % 11/09/24 14:14 Neut # (Auto) 3.83 10^3/uL (1.8-7.7) 11/09/24 14:14 Lymph # (Auto) 0.6 10^3/uL (0.8-4.8) L 11/09/24 14:14 [place] # (Auto) 0.6 10^3/uL (0.2-0.9) 11/09/24 14:14 Eos # (Auto) 0.0 10^3/uL (0.0-0.8) 11/09/24 14:14 Baso # (Auto) 0.0 10^3/uL (0.0-0.1) 11/09/24 14:14 Nucleated RBC % (auto) 0 % 11/09/24 14:14 Nucleated RBCs # 0.0 /100WBC 11/09/24 14:14 Sodium 135 mmol/L (136-145) L 11/09/24 14:14 Potassium 4.4 mmol/L (3.5-5.1) 11/09/24 14:14 Chloride 99 mmol/L (98-107) 11/09/24 14:14 Carbon Dioxide 27 mmol/L (22-29) 11/09/24 14:14 Anion Gap 13.4 (5-19) 11/09/24 14:14 BUN 16 mg/dL (8-23) 11/09/24 14:14 Creatinine 0.9 mg/dL (0.5-0.9) 11/09/24 14:14 GFR Calculation Not Reportable 11/09/24 14:14 Glucose 210 mg/dL (65-115) H 11/09/24 14:14 POC Glucose 167 mg/dL (70-110) H 11/09/24 14:34 Calculated Osmolality 287 mOsm/kg (285-295) 11/09/24 14:14 Calcium 8.3 mg/dL (8.5-10.5) L 11/09/24 14:14 Total Bilirubin 0.6 mg/dL (0.15-1.2) 11/09/24 14:14 AST 18 U/L (0-32) 11/09/24 14:14 ALT 11 U/L (0-33) 11/09/24 14:14 Alkaline Phosphatase 58 U/L (35-105) 11/09/24 14:14 Total Protein 6.2 g/dL (6.6-8.7) L 11/09/24 14:14 Albumin 3.2 g/dL (3.5-5.2) L 11/09/24 14:14 Globulin 3.0 g/dL (1.3-4.6) 11/09/24 14:14 Influenza A (PCR) Positive (Negative) 11/09/24 13:33 Influenza Type B (PCR) Negative (Negative) 11/09/24 13:33 RSV (PCR) Negative (Negative) 11/09/24 13:33 SARS-CoV-2 (PCR) Negative (Negative) 11/09/24 13:33 All radiology interpretation(s) finalized by discharge Discharge Plan Discharge Patient Disposition: Home Clinical Impression: Influenza A Condition: Stable Prescriptions: New oseltamivir [Tamiflu] 75 mg capsule 75 mg PO BID 5 Days Qty: 10 0RF No Action cyclobenzaprine 5 mg tablet 5 mg PO BID PRN (Reason: Muscle Spasm) loratadine [Claritin] 10 mg tablet 10 mg PO DAILY PRN (Reason: ALLERGIES) metoprolol tartrate 25 mg tablet 12.5 mg PO BID (DME) cpap See Rx Instructions .Route .MEDSUPPLY Qty: 1 0RF Rx Instructions: As directed Eliquis 5 mg tablet 5 mg PO BID Qty: 180 3RF insulin aspart U-100 100 unit/mL (3 mL) Insulin Pen See Protocol SUBCUT TID Qty: 15 0RF Protocol: Insulin Corrective High-Dose Regimen Condition: Fingerstick Blood Glucose Dose/Route: Insulin Units Condition: 141-180 mg/dl Dose/Route: 4 units/SQ Condition: 181-220 mg/dl Dose/Route: 6 units/SQ Condition: 221-260 mg/dl Dose/Route: 8 units/SQ Condition: 261-300 mg/dl Dose/Route: 10 units/SQ Condition: 301-350 mg/dl Dose/Route: 12 units/SQ Condition: 351-400 mg/dl Dose/Route: 14 units/SQ Condition: greater than 400 mg/dl Dose/Route: 16 units/SQ insulin glargine-yfgn 100 unit/mL (3 mL) Insulin Pen 50 unit SUBCUT BID Qty: 15 0RF aspirin 81 mg Tablet,Delayed Release (Dr/Ec) 81 mg PO DAILY fluticasone propion-salmeterol [Advair Diskus] 250-50 mcg/dose blister with device 1 inh inhalation Q12H Qty: 60 0RF Spiriva Respimat 2.5 mcg/actuation mist 2 inh inhalation QAM Qty: 4 0RF diltiazem HCl 240 mg Capsule,Extended Release 24 Hr 240 mg PO DAILY Qty: 30 0RF acetaminophen 325 mg Tablet 650 mg PO Q4H PRN (Reason: general discomfort) lisinopril 20 mg tablet 20 mg PO DAILY sennosides-docusate sodium [Senna Plus] 8.6-50 mg Tablet 1 tab PO BID olanzapine 5 mg tablet 5 mg PO BID tramadol 50 mg tablet 50 mg PO Q6H PRN (Reason: Pain) nystatin 100,000 unit/gram Powder 1 applic TOPICAL BID PRN (Reason: yeast type rash) pantoprazole [Protonix] 40 mg tablet,delayed release (DR/EC) 40 mg PO BID Discharge Orders: Discharge ED (Routine); Ordered 11/09/24 Ordered By: Dale Samaniego Referrals: Ajay Robertson DO [Primary Care Provider] - Discharge Diet: Usual diet Discharge Activity: Increase activity as tolerated Patient Instructions: Influenza (ED), Altered Mental Status (ED) Activity Restrictions/Additional Instructions: Your test was positive for influenza today. Influenza frequently has high fevers between 101-103. Influenza is a viral infection that typically lasts 5 to 10 days Tamiflu has been sent to the pharmacy to begin treatment for influenza. This medication will not kill the virus, but hopefully will make it to where it is not as severe nor as long in duration. We did have concern of a urinary tract infection as well, but were not able to collect urine from you today as you did refuse to have the testing completed. Please continue to monitor your symptoms and have your urine tested if your symptoms persist. Follow-up with primary care, call in 1 to 2 days with an update of symptoms and to discuss to recheck Return to the emergency department if any rapid worsening symptoms and as needed Print Language: Upper Sorbian Coding Level of Care Code ED Check Cashier for Tulio Ashford
--- NOTE | 2024-11-09 14:11 | PC.PHAR ---
Pt is resident of [facility] and [facility]
[2024-11-09 14:22] LABS: Basophils % 0.2 %; Eosinophils % 0.6 %; Hematocrit 44.7 % (36-47); Lymphocytes # 0.6 10^3/uL (0.8-4.8); Lymphocytes % 11.7 %; Mean Corpuscular HGB Conc 30.6 g/dL (30-55); Mean Corpuscular Hemoglobin 27.8 pg (27-33); Mean Corpuscular Volume 90.7 fl (85-98); Mean Platelet Volume 11.9 fL (7.4-10.4); Monocytes # 0.6 10^3/uL (0.2-0.9); Monocytes % 10.9 %; Neutrophils # 3.83 10^3/uL (1.8-7.7); Neutrophils % 76.2 %; Nucleated Red Blood Cells % 0 %; Platelet Count 138 10^3/cmm (157-399); Red Blood Count 4.93 10^6/uL (3.85-5.65); Red Cell Distribution Width 16.1 % (12.1-15.1); White Blood Count 5.03 10^3/uL (3.29-11.43)
--- NOTE | 2024-11-09 14:36 | PC.NURSE ---
FSBS 167
[2024-11-09 14:38] LABS: Glucose Point of Care 167 mg/dL (70-110)
[2024-11-09 14:39] LABS: Alanine Aminotransferase 11 U/L (0-33); Albumin Level 3.2 g/dL (3.5-5.2); Alkaline Phosphatase 58 U/L (35-105); Anion Gap 13.4 (5-19); Aspartate Amino Transferase 18 U/L (0-32); Blood Urea Nitrogen 16 mg/dL (8-23); Calcium 8.3 mg/dL (8.5-10.5); Carbon Dioxide 27 mmol/L (22-29); Chloride 99 mmol/L (98-107); Glucose 210 mg/dL (65-115); Osmolality Calculated 287 mOsm/kg (285-295); Potassium 4.4 mmol/L (3.5-5.1); Sodium 135 mmol/L (136-145); Total Bilirubin 0.6 mg/dL (0.15-1.2); Total Protein 6.2 g/dL (6.6-8.7)
[2024-11-09 14:42] LABS: Influenza A POSITIVE (Negative); Influenza B NEGATIVE (Negative); Respiratory Syncytial Virus Ce NEGATIVE (Negative); SARS-CoV-2 PCR NEGATIVE (Negative)
== END 2024-11-09 18:51 | disposition home or self-care (01) ==
PROVIDERS: Emergency Provider Nurse Practitioner; PCP Family Medicine
DX: J10.1 Influenza due to other identified influenza virus with other respiratory manifestations (principal); Z11.52 Encounter for screening for COVID-19; Z79.01 Long term (current) use of anticoagulants; Z79.4 Long term (current) use of insulin; Z79.82 Long term (current) use of aspirin; Z86.73 Personal history of transient ischemic attack (TIA), and cerebral infarction without residual deficits; E11.9 Type 2 diabetes mellitus without complications
CPT/HCPCS: 36415; 36416; 70450; 71045; 80053; 82962; 85025; 87637; 93005; 99285

== ENCOUNTER → 2024-12-26 11:14 | Outpatient (BNVA) | payer MEDICARE, SELFPAY | PROVIDERS: PCP Family Medicine; Visit Provider Podiatrist Foot & Ankle Surgery | DX: E11.42 Type 2 diabetes mellitus with diabetic polyneuropathy (principal); L60.3 Nail dystrophy; L84 Corns and callosities; E11.8 Type 2 diabetes mellitus with unspecified complications; I73.9 Peripheral vascular disease, unspecified; Z79.4 Long term (current) use of insulin | CPT/HCPCS: 11055; 11721 ==

== ENCOUNTER → 2025-02-07 13:51 | Outpatient (BNVA) | payer MEDICARE, SELFPAY | PROVIDERS: PCP Family Medicine; Visit Provider Family Medicine | DX: I73.9 Peripheral vascular disease, unspecified (principal); E11.65 Type 2 diabetes mellitus with hyperglycemia; Z79.4 Long term (current) use of insulin; N39.41 Urge incontinence | CPT/HCPCS: 80053; 80061; 83036; 85025 ==

== ENCOUNTER → 2025-03-17 14:29 | Outpatient (BNVA) | payer MEDICARE, SELFPAY | PROVIDERS: PCP Family Medicine; Visit Provider Clinical Nurse Specialist Adult Health | DX: E11.9 Type 2 diabetes mellitus without complications (principal) | CPT/HCPCS: 82962 ==

== ENCOUNTER → 2025-04-20 13:36 | Outpatient (BNVA) | payer MEDICARE, SELFPAY | PROVIDERS: PCP Family Medicine; Visit Provider Nurse Practitioner Family | DX: L30.4 Erythema intertrigo (principal); L21.8 Other seborrheic dermatitis; L82.1 Other seborrheic keratosis; D18.01 Hemangioma of skin and subcutaneous tissue; D23.5 Other benign neoplasm of skin of trunk; L85.3 Xerosis cutis; Z08 Encounter for follow-up examination after completed treatment for malignant neoplasm; Z85.820 Personal history of malignant melanoma of skin; D48.5 Neoplasm of uncertain behavior of skin | CPT/HCPCS: 11102; 99214 ==

== ENCOUNTER → 2025-05-03 11:31 | Outpatient (BNVA) | payer MEDICARE, SELFPAY | PROVIDERS: PCP Family Medicine; Visit Provider Family Medicine | DX: I73.9 Peripheral vascular disease, unspecified (principal); E11.65 Type 2 diabetes mellitus with hyperglycemia; Z79.4 Long term (current) use of insulin; N39.41 Urge incontinence; M25.569 Pain in unspecified knee; R53.1 Weakness | CPT/HCPCS: 80053; 80061; 82306; 82607; 83036; 85025 ==